=== PATIENT | male | born 1940 | race Caucasian/White ===

== ENCOUNTER 2017-05-14 00:17 | Outpatient (CLI) | END 2017-05-14 00:18 | disposition short-term general hospital (02) | LOC: AMBL 00:17 | PROVIDERS: ATTEND Internal Medicine Geriatric Medicine | DX: R10.30 Lower abdominal pain, unspecified (principal); R10.819 Abdominal tenderness, unspecified site; R00.1 Bradycardia, unspecified; R11.0 Nausea; Z98.890 Other specified postprocedural states ==

== ENCOUNTER 2017-06-15 22:56 | Outpatient (CLI) | END 2017-06-15 22:57 | LOC: AMBL 22:56 | PROVIDERS: ATTEND Emergency Medicine | DX: R10.84 Generalized abdominal pain (principal); G89.29 Other chronic pain ==

== ENCOUNTER 2017-06-21 01:37 | Outpatient (CLI) | END 2017-06-21 01:38 | LOC: AMBL 01:37 | PROVIDERS: ATTEND Emergency Medicine | DX: R10.84 Generalized abdominal pain (principal) ==

== ENCOUNTER 2017-06-29 19:43 | Outpatient (CLI) | END 2017-06-29 19:44 | LOC: AMBL 19:43 | PROVIDERS: ATTEND Emergency Medicine | DX: R10.30 Lower abdominal pain, unspecified (principal); R11.10 Vomiting, unspecified; R19.7 Diarrhea, unspecified; R00.1 Bradycardia, unspecified ==

== ENCOUNTER 2017-08-01 16:24 | Outpatient (CLI) ==
[2017-08-01 23:11] VITALS: BMI 19.7
== END 2017-08-01 16:25 | disposition home or self-care (01) ==
LOC: NONPT 16:24
PROVIDERS: ATTEND Internal Medicine
DX: S31.000A Unspecified open wound of lower back and pelvis without penetration into retroperitoneum, initial encounter (principal)
CPT/HCPCS: 87070

== ENCOUNTER 2017-08-01 19:33 | Inpatient (IN) ==
[2017-08-01] MEDS ORDERED: DUONEB NEB STA (19:51)
--- NOTE | 2017-08-01 19:56 | ED.PDOC ---
General ED Provider: Dr. SAMANTHA BARBOSA Chief Complaint: Cough Stated Complaint: Patient is a 76 year old who comes to the ER after recent surgery with cough and conjestion for the last few day. Also had lower grade fever. Family is worried he may have pneumoina. Has not been getting scheduled breathing treatments as required. Time Seen by Physician: 19:54 Mode of Arrival: Ambulance Information Source: Patient, Family, Senior Living, EMT Exam Limitations: No limitations Primary Care Provider: KELSI MURILLO Nursing and Triage Documentation Reviewed and Agree: Yes Respiratory Complaint Exam - Respiratory Complaint/Exam Onset/Duration: 3 days Symptoms Are: Still present Timing: Constant Initial Severity: Moderate Current Severity: Severe Location: Chest Character: Reports: Productive cough Aggravating: Reports: URI, Weather Alleviating: Reports: Bronchodilators Associated Signs and Symptoms: Reports: Dyspnea, Fever (Low grade ) Related History: Reports: Similar episode History of Healthcare-Acquired Pneumonia: Lives at snf (Rehab recently admitted ) Related Surgical History: Denies: Pacemaker Cardiac Risk Factors: Reports: Hypertension Pseudomonas Risk Factors: Reports: Repeat Antibx in 3 months Tuberculosis Risk Factors: Reports: Chronic Resp. Faliure Status Asthmaticus Risk Factors: Reports: Neb Treatment <4hr apart Home Oxygen Use: No Recent Stress Test: No Recent Echo/LV Function: No Current Antibiotic Use: Yes (Zithromax ) Current Asthma Medication Use: No Respiratory Distress: None Inadequate Respiratory Effort: Yes Dysphagia Present: No Stridor Present: No JVD Present: No Accessory Muscle Use: No Retractions: Not Present Diminished Breath Sounds: Yes Sinus Tenderness: None Grunting Respirations: No Kussmaul Respirations: No Differential Diagnoses: Asthma, COPD Exacerbation, Pneumonia, Bronchiolitis, URI , Lower Resp. Infection Non-Traumatic Chest Pain Syncope: EKG Performed Review of Systems - Review Of Systems Constitutional: Reports: Fever Respiratory: Reports: Cough, Short of air, Wheezing Cardiac: Reports: Chest pain (from coughing only ) GI: Reports: No symptoms : Reports: No symptoms Musculoskeletal: Reports: No symptoms Skin: Reports: Other (wounds ) Neurological: Reports: Anxiety Endocrine: Reports: No symptoms Hematologic/Lymphatic: Reports: No symptoms All Other Systems: Reviewed and Negative Past Medical History - Past Medical History Endocrine: Reports: DM 2, Dyslipidemia Cardiovascular: Reports: Hypertension, Other (cardic arrthymia ) Respiratory: Reports: COPD Hematological: Reports: Anemia Gastrointestinal: Reports: GERD, Other (Bowel obstruction.) Genitourinary: Reports: None Neuro/Psych: Reports: TIA, CVA Musculoskeletal: Reports: Arthritis Cancer: Reports: None - Surgical History General Surgical History: Reports: Other (colon resection 07/13/2017) - Family History Family History: Reports: Unknown - Social History Smoking Status: Former smoker Hx Substance Use: No Alcohol Screening: None - Immunizations Tetanus Shot up to Date: Yes Physical Exam - Physical Exam Appearance: Ill-appearing, Thin Ill-appearing: Severe Pain Distress: Severe Eyes: IRIS, EOMI, Conjunctiva clear Neck: Supple Respiratory: Rhonchi Cardiovascular: RRR, Pulses normal, No rub Musculoskeletal: Normal strength, ROM intact, No edema, No calf tenderness Skin: Warm, Dry, Normal color (sacral wound dressing in palce, Abdominal wound with a binder. ) Neurological: Sensation intact, Motor intact, Cranial nerves intact, Alert, Oriented Psychiatric: Anxious Interpretation - Assistant Engineer Rate: Normal Rhythm: Sinus Ectopy: None - EKG Interpretation Rate: Normal Rhythm: Sinus Ectopy: None [place]: NL ST Segment: Normal Interpretation: bifasicular block Critical Care Note - Critical Care Note Total Time (mins): 55 Course - Course Hematology/Chemistry: 08/02/17 04:20 08/02/17 04:20 Orders, Labs, Meds: Lab Review 08/01/17 08/01/17 08/01/17 19:51 20:00 21:00 WBC 25.15 H RBC 3.39 L Hgb 9.8 L Hct 29.6 L MCV 87.3 MCH 28.9 MCHC 33.1 RDW Coeff of Katalina 16.9 H Plt Count 413 Immature Gran % (Auto) 0.6 Neut % (Auto) 67.3 Lymph % (Auto) 27.4 Long % (Auto) 4.3 Eos % (Auto) 0.2 Baso % (Auto) 0.2 Immature Gran # (Auto) 0.1 Neut # 17.0 H Lymph # 6.9 H Long # 1.1 Eos # 0.0 Baso # 0.0 PT 121.3 H INR 12.81 H* Puncture Site Lb O2 Saturation 88.0 L ABG pH 7.499 H ABG pCO2 39.2 ABG pO2 49.0 L* ABG HCO3 30.5 H ABG Total CO2 32 H ABG Base Excess 7 H Dylan Test + FiO2 % 21.0 Sodium 144 Potassium 2.5 L* Chloride 105 Carbon Dioxide 31 Anion Gap 10.5 BUN 18 Creatinine 0.88 Estimated GFR (MDRD) 85.00 BUN/Creatinine Ratio 20.45 Glucose 119 H Lactic Acid 10.7 Calcium 8.0 L Magnesium 0.9 L* Total Bilirubin 0.31 AST 17 ALT 18 Alkaline Phosphatase 82 Total Creatine Kinase 15 Troponin I 0.0450 B-Natriuretic Peptide 1862 H Total Protein 5.5 L Albumin 1.8 L Globulin 3.7 Albumin/Globulin Ratio 0.49 Procalcitonin 0.08 Urine Color Urine Clarity Urine pH Ur Specific Ursa Urine Protein Urine Glucose (UA) Urine Ketones Urine Blood Urine Nitrite Urine Bilirubin Urine Urobilinogen Ur Leukocyte Esterase Urine Microscopic RBC Ur Squamous Epith Cells 08/01/17 21:25 WBC RBC Hgb Hct MCV MCH MCHC RDW Coeff of Katalina Plt Count Immature Gran % (Auto) Neut % (Auto) Lymph % (Auto) Long % (Auto) Eos % (Auto) Baso % (Auto) Immature Gran # (Auto) Neut # Lymph # Long # Eos # Baso # PT INR Puncture Site O2 Saturation ABG pH ABG pCO2 ABG pO2 ABG HCO3 ABG Total CO2 ABG Base Excess Dylan Test FiO2 % Sodium Potassium Chloride Carbon Dioxide Anion Gap BUN Creatinine Estimated GFR (MDRD) BUN/Creatinine Ratio Glucose Lactic Acid Calcium Magnesium Total Bilirubin AST ALT Alkaline Phosphatase Total Creatine Kinase Troponin I B-Natriuretic Peptide Total Protein Albumin Globulin Albumin/Globulin Ratio Procalcitonin Urine Color Yellow Urine Clarity Clear Urine pH 5.5 Ur Specific Ursa 1.020 Urine Protein 1+ Urine Glucose (UA) Negative Urine Ketones Negative Urine Blood Trace-lysed Urine Nitrite Negative Urine Bilirubin Negative Urine Urobilinogen 0.2 Ur Leukocyte Esterase Negative Urine Microscopic RBC 2-5 Ur Squamous Epith Cells Not present Orders Category Date Time Status ADMIT PATIENT INPATIENT .TO SCU (MONITORED BED) ADMISSION 08/01/17 21:27 Active ABG DRAW REQUEST Stat CARDIO 08/01/17 19:52 Completed EKG-(ED ONLY) Stat CARDIO 08/01/17 19:51 Completed NEBULIZER TREATMENT Routine CARDIO 08/01/17 21:37 Completed NEBULIZER TREATMENT Stat CARDIO 08/01/17 19:52 Completed OXYGEN Routine CARDIO 08/01/17 21:27 Active ACTIVITY .Early Mobilization for VTE Prevention CARE 08/01/17 21:31 Completed INCISION/WOUND CARE Q12HR CARE 08/01/17 21:27 Active INTAKE & OUTPUT Q8HR CARE 08/01/17 21:28 Completed TELEMETRY MONITORING TELE CARE 08/01/17 21:31 Active VITAL SIGNS Q4HR CARE 08/01/17 21:31 Completed ED COMPLIANCE REVIEW SPECIALIST APPLIED .ONCE EMERGENCY 08/01/17 19:51 Active ED IV/MEDIPORT/POWERPORT .ONCE EMERGENCY 08/01/17 19:51 Active OXYGEN [ED APPLY O2] .ONCE EMERGENCY 08/01/17 20:29 Active ABG Stat LAB 08/01/17 19:51 Completed B-TYPE NATRIURETIC PEPTIDE Stat LAB 08/01/17 20:00 Completed BLOOD CULTURE Stat LAB 08/01/17 20:00 Received CBC W/ AUTO DIFF DAILY@0600 LAB 08/02/17 04:20 Completed CBC W/ AUTO DIFF DAILY@0600 LAB 08/03/17 06:00 Ordered CBC W/ AUTO DIFF DAILY@0600 LAB 08/04/17 06:00 Ordered CBC W/ AUTO DIFF DAILY@0600 LAB 08/05/17 06:00 Ordered CBC W/ AUTO DIFF DAILY@0600 LAB 08/06/17 06:00 Ordered CBC W/ AUTO DIFF DAILY@0600 LAB 08/07/17 06:00 Ordered CBC W/ AUTO DIFF DAILY@0600 LAB 08/08/17 06:00 Ordered CBC W/ AUTO DIFF DAILY@0600 LAB 08/09/17 06:00 Ordered CBC W/ AUTO DIFF DAILY@0600 LAB 08/10/17 06:00 Ordered CBC W/ AUTO DIFF DAILY@0600 LAB 08/11/17 06:00 Ordered CBC W/ AUTO DIFF DAILY@0600 LAB 08/12/17 06:00 Ordered CBC W/ AUTO DIFF DAILY@0600 LAB 08/13/17 06:00 Ordered CBC W/ AUTO DIFF DAILY@0600 LAB 08/14/17 06:00 Ordered CBC W/ AUTO DIFF DAILY@0600 LAB 08/15/17 06:00 Ordered CBC W/ AUTO DIFF DAILY@0600 LAB 08/16/17 06:00 Ordered CBC W/ AUTO DIFF DAILY@0600 LAB 08/17/17 06:00 Ordered CBC W/ AUTO DIFF DAILY@0600 LAB 08/18/17 06:00 Ordered CBC W/ AUTO DIFF DAILY@0600 LAB 08/19/17 06:00 Ordered CBC W/ AUTO DIFF DAILY@0600 LAB 08/20/17 06:00 Ordered CBC W/ AUTO DIFF DAILY@0600 LAB 08/21/17 06:00 Ordered CBC W/ AUTO DIFF Stat LAB 08/01/17 20:00 Completed COMPREHENSIVE METABOLIC PANEL DAILY@0600 LAB 08/02/17 04:20 Completed COMPREHENSIVE METABOLIC PANEL DAILY@0600 LAB 08/03/17 06:00 Ordered COMPREHENSIVE METABOLIC PANEL DAILY@0600 LAB 08/04/17 06:00 Ordered COMPREHENSIVE METABOLIC PANEL DAILY@0600 LAB 08/05/17 06:00 Ordered COMPREHENSIVE METABOLIC PANEL DAILY@0600 LAB 08/06/17 06:00 Ordered COMPREHENSIVE METABOLIC PANEL DAILY@0600 LAB 08/07/17 06:00 Ordered COMPREHENSIVE METABOLIC PANEL DAILY@0600 LAB 08/08/17 06:00 Ordered COMPREHENSIVE METABOLIC PANEL DAILY@0600 LAB 08/09/17 06:00 Ordered COMPREHENSIVE METABOLIC PANEL DAILY@0600 LAB 08/10/17 06:00 Ordered COMPREHENSIVE METABOLIC PANEL DAILY@0600 LAB 08/11/17 06:00 Ordered COMPREHENSIVE METABOLIC PANEL DAILY@0600 LAB 08/12/17 06:00 Ordered COMPREHENSIVE METABOLIC PANEL DAILY@0600 LAB 08/13/17 06:00 Ordered COMPREHENSIVE METABOLIC PANEL DAILY@0600 LAB 08/14/17 06:00 Ordered COMPREHENSIVE METABOLIC PANEL DAILY@0600 LAB 08/15/17 06:00 Ordered COMPREHENSIVE METABOLIC PANEL DAILY@0600 LAB 08/16/17 06:00 Ordered COMPREHENSIVE METABOLIC PANEL DAILY@0600 LAB 08/17/17 06:00 Ordered COMPREHENSIVE METABOLIC PANEL DAILY@0600 LAB 08/18/17 06:00 Ordered COMPREHENSIVE METABOLIC PANEL DAILY@0600 LAB 08/19/17 06:00 Ordered COMPREHENSIVE METABOLIC PANEL DAILY@0600 LAB 08/20/17 06:00 Ordered COMPREHENSIVE METABOLIC PANEL DAILY@0600 LAB 08/21/17 06:00 Ordered COMPREHENSIVE METABOLIC PANEL Stat LAB 08/01/17 20:00 Completed CREATINE KINASE Stat LAB 08/01/17 20:00 Completed LACTIC ACID Stat LAB 08/01/17 20:00 Completed MAGNESIUM Stat LAB 08/01/17 20:00 Completed PROCALCITONIN Stat LAB 08/01/17 20:00 Completed TROPONIN I Stat LAB 08/01/17 20:00 Completed UA [URINALYSIS C & S IF INDICATED] Stat LAB 08/01/17 21:25 Completed 0.9 % Sodium Chloride [Saline Flush] MEDS 08/01/17 19:51 Ordered 1 syr IVF PRN PRN Aztreonam [Azactam] MEDS 08/01/17 21:22 Discontinued 1 gm .ROUTE .STK-MED ONE Aztreonam [Azactam] 1 gm MEDS 08/01/17 20:53 Discontinued 0.9 % Sodium Chloride [Sodium Chloride] 50 ml IV ONCE Aztreonam [Azactam] 1 gm MEDS 08/02/17 05:00 Ordered 0.9 % Sodium Chloride [Sodium Chloride] 50 ml IV Q8HR Hydromorphone HCl [Dilaudid 1 mg/ml Syringe] MEDS 08/01/17 20:28 Discontinued 1 mg IVP ONCE STA Hydromorphone HCl [Dilaudid 1 mg/ml Syringe] MEDS 08/01/17 21:27 Ordered 1 mg IVP Q4HR PRN Ipratropium/Albuterol Neb [Duoneb] MEDS 08/01/17 19:51 Discontinued 1 vial NEB ONCE STA Ipratropium/Albuterol Neb [Duoneb] MEDS 08/01/17 21:27 Ordered 1 vial NEB RTQ2H PRN Ipratropium/Albuterol Neb [Duoneb] MEDS 08/01/17 21:27 Discontinued 1 vial NEB RTQ6H PRN Ondansetron HCl/Pf [Zofran 4 mg/2 ml] MEDS 08/01/17 20:28 Discontinued 4 mg IVP ONCE STA Ondansetron HCl/Pf [Zofran 4 mg/2 ml] MEDS 08/01/17 21:27 Ordered 4 mg IVP Q6H PRN Oxycodone-Acetaminophen 5-325 [Percocet 5-325] MEDS 08/01/17 21:27 Ordered 1 tab PO Q6H PRN Potassium Chloride/D5-0.9%NaCl [D5%-Ns-KCl 20 Meq/l IV MEDS 08/01/17 21:30 Ordered Jessy] 1,000 ml IV 75 mls/hr Vancomycin HCl [Vancomycin] 1 gm MEDS 08/01/17 21:30 Ordered 0.9 % Sodium Chloride [Sodium Chloride] 250 ml IV Q12HR RESUSCITATION STATUS Routine OTHERS 08/01/17 21:27 Ordered CHEST, 1V AP ONLY Stat RADS 08/01/17 19:51 Completed OT CONSULTATION Routine THERAPIES 08/01/17 Ordered PT CONSULT Routine THERAPIES 08/01/17 Ordered Medications Generic Name Dose Route Start Last Admin Trade Name Freq PRN Reason Stop Dose Admin Albuterol/Ipratropium 1 vial 08/01/17 21:27 Duoneb NEB RTQ2H PRN Wheezing Albuterol/Ipratropium 1 vial 08/02/17 06:00 08/02/17 05:25 Duoneb NEB 1 vial RTQ6H [facility] Administration Amiodarone HCl 200 mg 08/02/17 09:00 Cordarone PO Q12HR [facility] Bisacodyl 5 mg 08/01/17 21:38 Dulcolax PO DAILY PRN Constipation Docusate Sodium 100 mg 08/02/17 09:00 Colace PO DAILY [facility] Hydrocortisone Sodium Succinate 100 mg 08/01/17 22:00 08/02/17 04:13 Solu-Cortef 100 Mg IVP 100 mg Q8HR [place] Administration Hydromorphone HCl 1 mg 08/01/17 21:27 08/02/17 04:02 Dilaudid 1 Mg/Ml Syringe IVP 1 mg Q4HR PRN Administration Severe Pain Aztreonam 1 gm/ Sodium 50 mls @ 75 mls/hr 08/02/17 05:00 08/02/17 05:33 Chloride IV Not Given Q8HR [facility] Potassium Chloride/Dextrose/Sod Cl 1,000 mls @ 75 mls/hr 08/01/17 21:30 08/02 06:14 D5%-Ns-Kcl 20 Meq/L Iv Jessy IV 75 mls/hr .[id number] [place] Administration Vancomycin HCl 1 gm/ Sodium 250 mls @ 125 mls/hr 08/01/17 21:30 08/02/17 04: 27 Chloride IV Not Given Q12HR [facility] Insulin Human Lispro 1 unit 08/01/17 21:38 Humalog SUBCUT QID PRN elevated blood glucose Insulin Human Regular 0 - 15 unit 08/01/17 21:43 08/02/17 06:30 Humulin R SUBCUT 4 unit PRN PRN Administration Hyperglycemica Protocol Magnesium Hydroxide 30 ml 08/01/17 21:38 Milk Of Magnesia PO DAILY PRN Dyspepsia Megestrol Acetate 800 mg 08/02/17 09:00 Megace PO DAILY [facility] Non-Formulary Medication 75 mg 08/02/17 09:00 Dipyridamole [Dipyridamole] PO Q12HR [facility] Non-Formulary Medication 5,000 unit 08/08/17 09:00 Ergocalciferol (Vitamin D2) [Ergocal] PO WEEKLY [facility] Non-Formulary Medication 0.1 mg 08/02/17 09:00 Fludrocortisone Acetate [Fludrocortisone Acetate] PO DAILY [facility] Ondansetron HCl 4 mg 08/01/17 21:27 Zofran 4 Mg/2 Ml IVP Q6H PRN Nausea / Vomiting Oxycodone/Acetaminophen 1 tab 08/01/17 21:27 08/02/17 00:51 Percocet 5-325 PO 1 tab Q6H PRN Administration moderate pain Pantoprazole Sodium 40 mg 08/02/17 09:00 Protonix PO Q12HR [facility] Potassium Chloride 40 meq 08/02/17 09:00 K-Dur PO QID [facility] Sodium Chloride 1 syr 08/01/17 19:51 08/01/17 21:04 Saline Flush IVF 1 syr PRN PRN Administration To flush IV Tamsulosin HCl 0.4 mg 08/02/17 09:00 Flomax PO DAILY [facility] Discontinued Medications Generic Name Dose Route Start Last Admin Trade Name Freq PRN Reason Stop Dose Admin Albuterol/Ipratropium 1 vial 08/01/17 19:51 08/01/17 19:55 Duoneb NEB 08/01/17 19:52 1 vial ONCE STA Administration Albuterol/Ipratropium 1 vial 08/01/17 21:27 08/01/17 23:48 Duoneb NEB 1 vial RTQ6H PRN Administration Wheezing Hydromorphone HCl 1 mg 08/01/17 20:28 08/01/17 20:58 Dilaudid 1 Mg/Ml Syringe IVP 08/01/17 20:29 1 mg ONCE STA Administration Aztreonam 1 gm/ Sodium 50 mls @ 75 mls/hr 08/01/17 20:53 08/01/17 21:27 Chloride IV 08/01/17 21:32 75 mls/hr ONCE STA Administration Magnesium Sulfate/Dextrose 2 200 mls @ 100 mls/hr 08/01/17 21:44 08/02/17 04: 26 gm/ Dextrose IV 08/01/17 23:43 Not Given ONCE STA Potassium Chloride 40 meq/ 200 mls @ 50 mls/hr 08/01/17 21:45 08/02/17 00:48 Sterile Water IV 08/02/17 01:44 Not Given ONCE STA Ondansetron HCl 4 mg 08/01/17 20:28 08/01/17 20:56 Zofran 4 Mg/2 Ml IVP 08/01/17 20:29 4 mg ONCE STA Administration Phytonadione 10 mg 08/01/17 22:17 08/02/17 00:59 Mephyton PO 08/01/17 22:18 10 mg ONCE STA Administration Vital Signs: Temp Pulse Resp BP Pulse Ox 08/01/17 19:35 98.7 F 87 28 H 178/57 H 92 L Departure - Departure Time of Disposition: 21:52 Disposition: ADMITTED INPATIENT Discharge Problem: Acute bronchitis, Hypoxia Condition: Fair Pt referred to PMD for follow-up: No Allergies/Adverse Reactions: Allergies amoxicillin Adverse Reaction (Verified 08/01/17 20:14) morphine Adverse Reaction (Verified 08/01/17 20:16) Home Medications: Ambulatory Orders Amiodarone HCl 200 mg PO Q12HR 08/01/17 Azithromycin [Zithromax] 250 mg PO DAILY 08/01/17 Bisacodyl [Dulcolax] 5 mg PO DAILY PRN 08/01/17 Dipyridamole 75 mg PO Q12HR 08/01/17 Docusate Sodium 100 mg PO DAILY 08/01/17 Ergocalciferol (Vitamin D2) [Ergocal] 5,000 unit PO WEEKLY 08/01/17 Fludrocortisone Acetate 0.1 mg PO DAILY 08/01/17 Hydrocodone Bit/Acetaminophen [[place] 7.5-325] 1 tab PO Q8HR PRN 08/01/17 Insulin Lispro [Humalog] 1 unit SQ QID PRN 08/01/17 Magnesium Hydroxide [Milk of Magnesia] 30 ml PO DAILY PRN 08/01/17 Megestrol Acetate 800 mg PO DAILY 08/01/17 Pantoprazole Sodium 40 mg PO Q12HR 08/01/17 Tamsulosin HCl [Flomax] 0.4 mg PO DAILY 08/01/17 Warfarin Sodium [Coumadin] 3 mg PO DAILY 08/01/17
[2017-08-01 20:10] LABS: BASOPHILS % (AUTO) 0.2 % (0.0-3.0); EOSINOPHILS % (AUTO) 0.2 % (0.0-7.0); HEMATOCRIT 29.6 % (42.0-52.0); HEMOGLOBIN 9.8 g/dl (14.0-18.0); IMMATURE GRANULOCYTE % (AUTO) 0.6 % (0.0-5.0); LYMPHOCYTES # (AUTO) 6.9 K/uL (0.60-3.4); LYMPHOCYTES % (AUTO) 27.4 (10.0-50.0); MEAN CORPUSCULAR HEMOGLOBIN 28.9 pg (27.0-31.0); MEAN CORPUSCULAR HGB CONC 33.1 (31.8-35.4); MEAN CORPUSCULAR VOLUME 87.3 fl (80.0-94.0); MONOCYTES # (AUTO) 1.1 K/uL (0.4-2.0); MONOCYTES % (AUTO) 4.3 (0-10); NEUTROPHILS % (AUTO) 67.3; PLATELET COUNT 413 10^3/uL (140-440); RED BLOOD COUNT 3.39 10^6/ul (4.70-6.10); WHITE BLOOD COUNT 25.15 K/ul (4.2-10.2)
[2017-08-01 20:28] LABS: ABG PCO2 39.2 mmHg (35-45); ABG PH 7.499 (7.35-7.45)
[2017-08-01] MEDS ORDERED: DILAUDID 1 MG/ML SYRINGE IVP STA (20:28)
[2017-08-01] MEDS ORDERED: ZOFRAN 4 MG/2 ML IVP STA (20:28)
[2017-08-01 20:29] LABS: ABG BASE EXCESS 7 (-2.0-2.0); ABG HCO3 30.5 (22.0-26.0); ABG TCO2 32 (22.0-28.0)
[2017-08-01 20:37] LABS: ALBUMIN 1.8 g/dL (3.4-5.0); ALBUMIN/GLOBULIN RATIO 0.49; ANION GAP 10.5; BILIRUBIN,TOTAL 0.31 mg/dL (0.00-1.20); BUN/CREATININE RATIO 20.45; CREATININE 0.88 mg/dL (0.60-1.10); TOTAL PROTEIN 5.5 g/dL (5.8-8.1); TROPONIN I 0.045 ng/ml (0.0000-0.4000)
[2017-08-01 20:38] LABS: POTASSIUM 2.5 mmol/L (3.5-5.1)
[2017-08-01] MEDS ORDERED: AZACTAM 1 GM in SODIUM CHLORIDE 50 ML IV STA (20:53)
--- NOTE | 2017-08-01 21:00 | DI ---
EXAM: Portable chest HISTORY: Cough COMPARISON: None. FINDINGS: The cardiac silhouette is normal in size. Atherosclerotic changes are seen involving the aortic arch. Sternal wire sutures are noted. There are emphysematous changes. There is blunting of both lateral costophrenic angles.. Minimal haziness is noted peripherally at the left lung base. IMPRESSION: Prior mediastinotomy. Emphysematous changes with blunting of both lateral costophrenic angles. Minimal haziness peripherally at the left lung base.
[2017-08-01] MEDS ORDERED: AZACTAM ONE (21:22)
[2017-08-01] MEDS ORDERED: DUONEB NEB PRN (21:27)
[2017-08-01] MEDS ORDERED: ZOFRAN 4 MG/2 ML IVP PRN (21:27)
[2017-08-01 21:33] LABS: BILIRUBIN,URINE Negative (NEGATIVE); KETONES,URINE Negative (NEGATIVE); LEUKOCYTE ESTERASE ,URINE Negative (NEGATIVE); NITRITE,URINE Negative (NEGATIVE); PH,URINE 5.5 (5-9); PROTEIN,URINE 1+ (NEGATIVE); URINE, BLOOD Trace-lysed (NEGATIVE)
[2017-08-01] MEDS ORDERED: MILK OF MAGNESIA PO PRN (21:38)
[2017-08-01] MEDS ORDERED: HUMALOG SUBCUT PRN (21:38)
[2017-08-01] MEDS ORDERED: DULCOLAX PO PRN (21:38)
[2017-08-01 21:42] LABS: ADD URINE MICROSCOPIC YES
[2017-08-01] MEDS ORDERED: HUMULIN R SUBCUT PRN (21:43)
[2017-08-01] MEDS ORDERED: POTASSIUM CHLORIDE PREMIX RUN 40 MEQ in PREMIX 100 ML WATER 2 BAG IV STA (21:45)
[2017-08-01 22:16] LABS: PROTHROMBIN TIME 121.3 SEC (9.3-11.0)
[2017-08-01] MEDS ORDERED: MEPHYTON PO STA (22:17)
[2017-08-01] MEDS ORDERED: POTASSIUM CHLORIDE PREMIX RUN 100 ML IV ONE (22:30)
[2017-08-01 23:11] VITALS: BMI 19.7
[2017-08-01] MEDS: SOLU-CORTEF 100 MG IVP SCH (23:18)
[2017-08-01] MEDS: DILAUDID 1 MG/ML SYRINGE IVP PRN (23:26)
[2017-08-02] MEDS ORDERED: POTASSIUM CHLORIDE PREMIX RUN 100 ML IV ONE (00:43)
[2017-08-02] MEDS: PERCOCET 5-325 PO PRN (00:51)
[2017-08-02] MEDS: MAGNESIUM SULFATE 100 ML IV ONE ×2 (02:52→02:56)
[2017-08-02] MEDS: MAGNESIUM SULFATE 2 GM in PREMIX 100 ML D5W 2 BAG IV STA ×2 (02:53→04:26)
[2017-08-02] MEDS: DILAUDID 1 MG/ML SYRINGE IVP PRN ×3 (04:02→19:34)
[2017-08-02] MEDS ORDERED: MAGNESIUM SULFATE 100 ML IV ONE (04:11)
[2017-08-02] MEDS: SOLU-CORTEF 100 MG IVP SCH ×3 (04:13→21:36)
[2017-08-02] MEDS: VANCOMYCIN 1 GM in SODIUM CHLORIDE 250 ML IV SCH ×2 (04:27→09:13)
[2017-08-02] MEDS: D5%-NS-KCL 20 MEQ/L IV SOL 1,000 ML IV SCH ×2 (04:30→06:14)
[2017-08-02] MEDS ORDERED: AZACTAM ONE (05:13)
[2017-08-02 05:16] LABS: BASOPHILS % (AUTO) 0.1 % (0.0-3.0); HEMATOCRIT 25.4 % (42.0-52.0); HEMOGLOBIN 8.4 g/dl (14.0-18.0); IMMATURE GRANULOCYTE % (AUTO) 0.8 % (0.0-5.0); LYMPHOCYTES # (AUTO) 0.7 K/uL (0.60-3.4); LYMPHOCYTES % (AUTO) 5.1 (10.0-50.0); MEAN CORPUSCULAR HGB CONC 33.1 (31.8-35.4); MEAN CORPUSCULAR VOLUME 87.6 fl (80.0-94.0); MONOCYTES # (AUTO) 0.2 K/uL (0.4-2.0); MONOCYTES % (AUTO) 1.7 (0-10); NEUTROPHILS # (AUTO) 13.1 K/ul (2.0-6.9); NEUTROPHILS % (AUTO) 92.3; PLATELET COUNT 360 10^3/uL (140-440); WHITE BLOOD COUNT 14.22 K/ul (4.2-10.2)
[2017-08-02] MEDS: DUONEB NEB SCH ×4 (05:25→23:12)
[2017-08-02 05:31] LABS: ALBUMIN 1.6 g/dL (3.4-5.0); ALBUMIN/GLOBULIN RATIO 0.46; ANION GAP 17.3; BILIRUBIN,TOTAL 0.24 mg/dL (0.00-1.20); BUN/CREATININE RATIO 17.7; CALCIUM 7.9 mg/dL (8.2-10.2); CREATININE 0.96 mg/dL (0.60-1.10); MAGNESIUM 1.8 mg/dL (1.7-2.2); POTASSIUM 3.3 mmol/L (3.5-5.1); TOTAL PROTEIN 5.1 g/dL (5.8-8.1)
[2017-08-02] MEDS ORDERED: SODIUM CHLORIDE 50 ML IV ONE (05:31)
[2017-08-02] MEDS: AZACTAM 1 GM in SODIUM CHLORIDE 50 ML IV SCH ×3 (05:33→21:36)
[2017-08-02 05:35] LABS: PROTHROMBIN TIME 111.4 SEC (9.3-11.0)
[2017-08-02] MEDS ORDERED: K-DUR PO SCH (09:00)
[2017-08-02] MEDS ORDERED: LOVENOX SUBCUT SCH (09:00)
[2017-08-02] MEDS ORDERED: DIPYRIDAMOLE 75 MG PO SCH (09:00)
[2017-08-02] MEDS: COLACE PO SCH (09:14)
[2017-08-02] MEDS: ZITHROMAX PO SCH (09:14)
[2017-08-02] MEDS: FLOMAX PO SCH (09:15)
[2017-08-02] MEDS: MEGACE PO SCH (09:15)
[2017-08-02] MEDS: CORDARONE PO SCH ×2 (09:18→21:41)
[2017-08-02] MEDS: PROTONIX PO SCH ×2 (09:18→17:43)
--- NOTE | 2017-08-02 10:49 | PN ---
DATE OF SERVICE: 08/01/17 ADMIT NOTE SUBJECTIVE: The patient is a resident of the [facility] was hospitalized as he was sent from the [facility] to the Emergency Room as his cough, congestive and low grade fever persisted. I was called two days ago as patient was having cough and congestion. I advised the family to send the patient to one of the emergency rooms either at [place] or [place] and they family declined. The patient was given Decadron 1cc IM and Z-pack and also instructions were given that if the patient's condition doesn't improve in 12 to 24 hours that the patient needs to go to the emergency room. Further workup by the ER physician revealed that patient had acute respiratory failure with pO2 of less than 50 with oxygen saturation of 86% with normal pH or pCO2 was within acceptable range. The patient's chest x-ray showed bilateral infiltrate. The patient's recently had surgery on his intestine because of obstruction. He also has multiple other medical problems. REVIEW OF SYSTEMS: CONSTITUTIONAL: No night sweats. No fatigue, malaise, lethargy. No fever or chills. HEENT: Eyes: No visual changes. No eye pain. No eye discharge. ENT: No runny nose. No epistaxis. No sinus pain. No sore throat. No odynophagia. No congestion. RESPIRATORY: No cough, no congestion. No hemoptysis. No shortness of breath. CARDIOVASCULAR: No angina symptoms. No CHF symptoms. No atypical chest pain for CAD. No palpitations. No orthopnea. GASTROINTESTINAL: No abdominal pain. No nausea or vomiting. No diarrhea or constipation. No hematemesis. No hematochezia. GENITOURINARY: No urgency. No frequency. No dysuria. No hematuria. No obstructive symptoms. No discharge. No pain. No significant abnormal bleeding. MUSCULOSKELETAL: No musculoskeletal pain; no joint swelling. NEUROLOGICAL: No headache. No neck pain. No syncope. No seizures. No dizziness. PSYCHIATRIC: Not anxious. No depression. No suicidal thoughts. No homicidal thoughts. SKIN: No rash. No lesions. No wounds. ENDOCRINE: No unexplained weight loss. No weight gain. HEMATOLOGIC/LYMPHATIC: No anemia. No purpura. No petechiae. No prolonged or excessive bleeding. No palpable lymph nodes. PHYSICAL EXAMINATION: GENERAL: The patient is oriented to time, place and person and able to swallow. VITAL SIGNS: HEENT: Head normocephalic, atraumatic. Eyes: Extraocular muscles are intact. Pupils are equal, round and reactive to light and accommodation. Ears: No lesions. Nose appeared normal. Throat: No exudate or erythema. NECK: Supple. No JVD, no carotid bruit. No lymphadenopathy or thyromegaly. LUNGS: Decreased breath sounds with mild wheeze bilaterally. Percussion note normal. Chest symmetrical. HEART: S1, S2, no S3. No murmurs. No cyanosis or clubbing. No ascites. Pulses: Dorsalis pedis and posterior tibial pulses +1 to +2 both sides. ABDOMEN: Soft. Nontender. Bowel sounds active. No CVA tenderness. No mass felt. EXTREMITIES: No edema. Full range of motion of all extremities, equal. NEUROLOGIC: No focal deficit. Cranial nerves II through XII are grossly intact. No headache, no double vision or headache. SKIN: Not dry. Intact. Turgor - normal. LYMPHATIC: No palpable lymph nodes/no lymphedema. MUSCULOSKELETAL: Normal joints with no swelling. Muscle tone is normal. LABS: ABG showed acute respiratory failure, WBC 25,000, creatinine and BUN are normal. Potassium 2.5 ASSESSMENT: 1. Pneumonia 2. Respiratory failure 3. Severe Hypokalemia 4. Vascular disease 5. ASHD PLAN: 1. Given Potassium supplements total 40 meq before midnight and daily 20meq four times a day and 10meq with 100cc of fluids. 40meq on riders 2. 1,000cc D5 1/2 normal saline with 30 meq KCL with 75cc per hour 3. Antibiotics to be given; Vancomycin, Azactam. The patient was already given Zithromax 4. IV steroids 5. NEBS treatment 6. Oxygen supplements 7. Admitted to [facility]. CONDITION: Stable TIME SPENT: More than 30 minutes. Plan and coordination of the patient's care discussed in the presence of nurse. [facility]ET[facility]ar
[2017-08-02] MEDS: FLUDROCORTISONE ACETATE 0.1 MG PO SCH (12:19)
[2017-08-02] MEDS: VITAMIN D PO SCH (12:24)
--- NOTE | 2017-08-02 15:50 | RS.PTINEVL ---
Subjective - Patient information Date of Evaluation: 08/02/17 Admitted From:: [facility] Usual Living Arrangement: [facility] Medical History: CVA/TIA (in 1977), COPD, Diabetes Medical History Comments:: Anemia Surgical History Comments:: bowel resection 07/12/17 at [facility], 3 RICH to left hip, 4 toes of left foot amputated Subjective Information/ Patient Comments:: Patient states he has been at the residential for about two weeks for therapy due to weakness from a prolonged hospital stay. States he was in the hospital over 100 days. Reports being very weak and hopes to return home soon from the residential. States he has a bed sore on his bottom. States he has difficulty scooting on the bed due to the bed sore. - Level of function Abilities prior to this admission: Prior to lengthy hospital stay, patient was independent with ambulation and ADL' s. Current Level of Function: Partially Dependent Current Equipment Used at Home: Rolling walker, wheelchair, hospital bed, high- rise toliet seat. Interventions - Objective Patient Orientation: Person, Place, Time, Situation Current Interventions: IV's, Telemetry Range of Motion - ROM Right Lower Extremity AROM: WFL's Left Lower Extremity AROM: WFL's Muscle Strength - Muscle Strength Comments:: Patient demonstrates general weakness throughout. Bilateral LE strength is generally 4-/5. Balance - Sitting Balance and Reactions Static Sitting Balance: Fair (+) Dynamic Sitting Balance: Fair - Standing Balance and Reactions Static Standing Balance: Fair Dynamic Standing Balance: Fair Functional Mobility - Bed Mobility Scooting: Min Assist, Mod Assist, 2 person assist, Verbal Cues, Tactile Cues Supine to Sit: Mod Assist, 2 person assist, Verbal Cues, Tactile Cues Sit to Supine: Min Assist, 2 person assist, Verbal Cues, Tactile Cues Comments:: Patient needed assistance to raise his trunk for supine to sit. Then returning to bed, he needed light assistance with his legs for sit to supine. - Transfers Sit to Stand: Min Assist, Mod Assist, 2 person assist, Verbal Cues, Tactile Cues Stand to Sit: Min Assist, 2 person assist, Verbal Cues, Tactile Cues - Safety Awareness Safety Awareness: Fair Ambulation - Ambulation Weight Bearing Status: FWB Assistive Device Used: Rolling Walker Distance: 3 steps forward and back to bed Assistance needed with Ambulation: Mod Assist, 2 person assist, Verbal Cues, Tactile Cues Gait Deviations: Narrow Based gait, Shuffling gait, Step-to gait, Forward posture, Short stride, Lacks step continuity Factors Affecting Ambulation: Decreased Balance, Weakness, Decreased Coordination, Decreased Safety, Limited Endurance Treatment time - Time with patient Total treatment time: 20 (mins) Assessment - Assessment Problem List:: Decreased level of function, Requires training/education, Decreased safety/Risk of falls, Weakness Rehab Potential: Good Further Therapy Indicated?: Yes Short Term Goals GOAL #1: Supine to sit with min assist of one and VC's. Goal to be met by: 08/05/17 GOAL #2: Sit to supine with supvn and VC's. Goal to be met by: 08/05/17 GOAL #3: Sit to stand with min assist of one. Goal to be met by: 08/05/17 Skilled Nursing Goals GOAL #1: Bed mobility with Supvn and vc's. Goal to be met by: 08/09/17 GOAL #2: Transfers with min-CGA of one and VC's. Goal to be met by: 08/09/17 GOAL #3: Pt amb. with RW with min of one 60 feet. Goal to be met by: 08/09/17 Plan Plan of Care: Therapeutic EX, Neuromuscular Re-Educ, Therapeutic Activity Frequency of Treatment: 1-2 X day, as tolerated Duration of Treatment: 1 Week Anticipated Discharge Destination: Skilled Nursing Care Facility (return to [place])
[2017-08-02] MEDS: HUMALOG SUBCUT PRN (17:37)
[2017-08-02] MEDS: K-DUR PO SCH (17:44)
[2017-08-03] MEDS: DILAUDID 1 MG/ML SYRINGE IVP PRN ×5 (00:47→23:46)
[2017-08-03] MEDS: D5%-NS-KCL 20 MEQ/L IV SOL 1,000 ML IV SCH ×2 (00:49→09:53)
[2017-08-03] MEDS: DUONEB NEB SCH ×4 (05:26→23:23)
[2017-08-03] MEDS: AZACTAM 1 GM in SODIUM CHLORIDE 50 ML IV SCH ×3 (05:34→20:29)
[2017-08-03] MEDS: PROTONIX PO SCH ×2 (05:35→17:50)
[2017-08-03 05:46] LABS: BASOPHILS % (AUTO) 0.1 % (0.0-3.0); HEMATOCRIT 24.5 % (42.0-52.0); IMMATURE GRANULOCYTE % (AUTO) 0.8 % (0.0-5.0); LYMPHOCYTES # (AUTO) 1.1 K/uL (0.60-3.4); LYMPHOCYTES % (AUTO) 7.8 (10.0-50.0); MEAN CORPUSCULAR HEMOGLOBIN 28.8 pg (27.0-31.0); MEAN CORPUSCULAR HGB CONC 32.7 (31.8-35.4); MEAN CORPUSCULAR VOLUME 88.1 fl (80.0-94.0); MONOCYTES # (AUTO) 0.4 K/uL (0.4-2.0); MONOCYTES % (AUTO) 2.7 (0-10); NEUTROPHILS # (AUTO) 12.7 K/ul (2.0-6.9); NEUTROPHILS % (AUTO) 88.6; PLATELET COUNT 340 10^3/uL (140-440); RED BLOOD COUNT 2.78 10^6/ul (4.70-6.10); WHITE BLOOD COUNT 14.29 K/ul (4.2-10.2)
[2017-08-03] MEDS: SOLU-CORTEF 100 MG IVP SCH ×3 (05:51→20:29)
[2017-08-03 06:05] LABS: ALBUMIN 1.6 g/dL (3.4-5.0); ALBUMIN/GLOBULIN RATIO 0.42; ANION GAP 12.2; BILIRUBIN,TOTAL 0.18 mg/dL (0.00-1.20); BUN/CREATININE RATIO 17.64; CALCIUM 7.9 mg/dL (8.2-10.2); CREATININE 1.02 mg/dL (0.60-1.10); POTASSIUM 4.2 mmol/L (3.5-5.1); TOTAL PROTEIN 5.4 g/dL (5.8-8.1)
[2017-08-03 06:10] LABS: PROTHROMBIN TIME 19.3 SEC (9.3-11.0)
[2017-08-03] MEDS: HUMALOG SUBCUT PRN ×3 (06:21→20:38)
[2017-08-03] MEDS: COLACE PO SCH (08:34)
[2017-08-03] MEDS: FLOMAX PO SCH (08:34)
[2017-08-03] MEDS: CORDARONE PO SCH ×2 (08:34→20:29)
[2017-08-03] MEDS: MEGACE PO SCH (08:35)
[2017-08-03] MEDS: ZITHROMAX PO SCH (08:35)
[2017-08-03] MEDS: K-DUR PO SCH (08:35)
[2017-08-03] MEDS: FLUDROCORTISONE ACETATE 0.1 MG PO SCH (08:37)
[2017-08-03] MEDS: VANCOMYCIN 500 MG in SODIUM CHLORIDE 100 ML IV SCH ×2 (09:52→21:20)
[2017-08-03] MEDS: DEXTROSE 5%-1/2NS IV SOLUTION 1,000 ML IV SCH (09:53)
[2017-08-03 11:01] LABS: OCCULT BLOOD INTERNAL QC 1 INTERNAL QC VALID; OCCULT BLOOD SAMPLE 1 POSITIVE (NEGATIVE)
[2017-08-04] MEDS: DEXTROSE 5%-1/2NS IV SOLUTION 1,000 ML IV SCH (02:23)
[2017-08-04] MEDS: AZACTAM 1 GM in SODIUM CHLORIDE 50 ML IV SCH ×3 (04:38→23:39)
[2017-08-04] MEDS: SOLU-CORTEF 100 MG IVP SCH (04:38)
[2017-08-04] MEDS: DILAUDID 1 MG/ML SYRINGE IVP PRN ×5 (04:40→22:28)
[2017-08-04 04:53] LABS: BASOPHILS % (AUTO) 0.1 % (0.0-3.0); HEMATOCRIT 24.8 % (42.0-52.0); HEMOGLOBIN 8.1 g/dl (14.0-18.0); IMMATURE GRANULOCYTE % (AUTO) 0.9 % (0.0-5.0); LYMPHOCYTES # (AUTO) 0.8 K/uL (0.60-3.4); LYMPHOCYTES % (AUTO) 4.6 (10.0-50.0); MEAN CORPUSCULAR HEMOGLOBIN 28.9 pg (27.0-31.0); MEAN CORPUSCULAR HGB CONC 32.7 (31.8-35.4); MEAN CORPUSCULAR VOLUME 88.6 fl (80.0-94.0); MONOCYTES # (AUTO) 0.5 K/uL (0.4-2.0); MONOCYTES % (AUTO) 2.5 (0-10); NEUTROPHILS # (AUTO) 16.3 K/ul (2.0-6.9); NEUTROPHILS % (AUTO) 91.9; PLATELET COUNT 379 10^3/uL (140-440)
[2017-08-04] MEDS: DUONEB NEB SCH ×4 (05:00→22:48)
[2017-08-04 05:07] LABS: PROTHROMBIN TIME 26.5 SEC (9.3-11.0)
[2017-08-04 05:16] LABS: ALBUMIN 1.7 g/dL (3.4-5.0); ALBUMIN/GLOBULIN RATIO 0.45; ANION GAP 13.8; BILIRUBIN,TOTAL 0.25 mg/dL (0.00-1.20); BUN/CREATININE RATIO 19.23; CALCIUM 7.8 mg/dL (8.2-10.2); CREATININE 0.78 mg/dL (0.60-1.10); POTASSIUM 3.8 mmol/L (3.5-5.1); TOTAL PROTEIN 5.5 g/dL (5.8-8.1)
[2017-08-04] MEDS: HUMALOG SUBCUT PRN ×2 (05:30→21:57)
[2017-08-04] MEDS: PROTONIX PO SCH ×2 (05:30→21:23)
[2017-08-04] MEDS: ZITHROMAX PO SCH (09:10)
[2017-08-04] MEDS: COLACE PO SCH (09:10)
[2017-08-04] MEDS: FLOMAX PO SCH (09:10)
[2017-08-04] MEDS: CORDARONE PO SCH ×2 (09:10→21:23)
[2017-08-04] MEDS: MEGACE PO SCH (09:10)
[2017-08-04] MEDS: COREG PO SCH ×2 (09:11→21:23)
[2017-08-04] MEDS: COZAAR PO SCH (09:11)
[2017-08-04] MEDS: K-DUR PO SCH (09:11)
[2017-08-04] MEDS: VANCOMYCIN 500 MG in SODIUM CHLORIDE 100 ML IV SCH ×2 (09:11→21:23)
[2017-08-04] MEDS: FLUDROCORTISONE ACETATE 0.1 MG PO SCH (09:14)
[2017-08-04] MEDS: PERCOCET 5-325 PO PRN (09:16)
--- NOTE | 2017-08-04 09:56 | PCM.PROG ---
Attending Provider: ATTENDING PROVIDER: Dr. KELSI MURILLO DATE OF SERVICE: 08/03/17 SUBJECTIVE: This 76 year old WHITE/ M was hospitalized 08/01/17. The patient is seen with Erum/Nurse Practitioner. The patient is lying in bed, is alert. The patient states he is in severe pain in the abdomen and from wound on buttock. He is afebrile. Potassium is normal today. INR is 1.9 today, which is improved. REVIEW OF SYSTEMS: CONSTITUTIONAL: Weakness. No night sweats. No fever or chills. HEENT: Eyes: No visual changes. No eye pain. No eye discharge. ENT: No runny nose. No epistaxis. No sinus pain. No odynophagia. No congestion. RESPIRATORY: Cough. No hemoptysis. No shortness of breath. CARDIOVASCULAR: No angina symptoms. No CHF symptoms. No atypical chest pain for CAD. No palpitations. No orthopnea.. GASTROINTESTINAL: Abdominal pain. No nausea or vomiting. No diarrhea or constipation. No hematemesis. No hematochezia. GENITOURINARY: No urgency. No frequency. No dysuria. No hematuria. No obstructive symptoms. No discharge. No pain. No significant abnormal bleeding. MUSCULOSKELETAL: Pain from wound on buttock and abdominal pain. NEUROLOGICAL: Awake, alert, oriented to time, place and person. No headache. No neck pain. No syncope. No seizures. No dizziness. PSYCHIATRIC: Not anxious. No depression. No suicidal thoughts. No homicidal thoughts. SKIN: No rash. Incision site on abdomen, pressure ulcer on left buttock. ENDOCRINE: No unexplained weight loss. No weight gain. HEMATOLOGIC/LYMPHATIC: No anemia. No purpura. No petechiae. No prolonged or excessive bleeding. No palpable lymph nodes. PHYSICAL EXAMINATION: GENERAL: The patient is awake, alert and oriented, lying in bed in no distress. VITAL SIGNS: Temperature 97.9 F, Pulse 65, Respiratory Rate 18, BP 153/64, Pulse Ox 98% HEENT: Head normocephalic, atraumatic. Eyes: Extraocular muscles are intact. Pupils are equal, round and reactive to light and accommodation. Ears: No lesions. Nose appeared normal. Throat: No exudate or erythema. NECK: Supple. No JVD, no carotid bruit. No lymphadenopathy or thyromegaly. LUNGS: Diminished breath sounds bilaterally, bilateral wheeze. Percussion note normal. Chest symmetrical. HEART: S1, S2, no S3. No murmurs. No cyanosis or clubbing. No ascites. Pulses: Dorsalis pedis and posterior tibial pulses +1 to +2 both sides. ABDOMEN: Soft. Non-tender. Bowel sounds active. No CVA tenderness. No mass felt. Surgical incision site on abdomen with drainage serosanquineous fluid. EXTREMITIES: No edema. Full range of motion of all extremities, equal. NEUROLOGIC: No focal deficit. Cranial nerves II through XII are grossly intact. No headache, no double vision or headache. SKIN: Warm and dry. Left buttock incision 3 cm x 4 cm approximately; pressure ulcer. Surgical incision site on abdomen. LYMPHATIC: No palpable lymph nodes/no lymphedema. MUSCULOSKELETAL: Normal joints with no swelling. Muscle tone is normal. LAB REVIEW: 08/03/17 05:15 08/03/17 05:15 08/03/17 05:15: WBC 14.29 H, RBC 2.78 L, Hgb 8.0 L, Hct 24.5 L, MCV 88.1, MCH 28.8, MCHC 32.7, RDW Coeff of Katalina 17.1 H, Plt Count 340, Immature Gran % (Auto) 0.8, Neut % (Auto) 88.6, Lymph % (Auto) 7.8 L, [place] % (Auto) 2.7, Eos % (Auto) 0.0, Baso % (Auto) 0.1, Immature Gran # (Auto) 0.1, Neut # 12.7 H, Lymph # 1.1, [place] # 0.4, Eos # 0.0, Baso # 0.0, PT 19.3 H D, INR 1.93 D, Sodium 146 H, Potassium 4.2, Chloride 109 H, Carbon Dioxide 29, Anion Gap 12.2, BUN 18, Creatinine 1.02, Estimated GFR (MDRD) 71.00, BUN/Creatinine Ratio 17.64, Glucose 262 H, Calcium 7.9 L, Magnesium 1.5 L, Total Bilirubin 0.18, AST 21, ALT 26, Alkaline Phosphatase 75, Total Protein 5.4 L, Albumin 1.6 L, Globulin 3.8, Albumin/Globulin Ratio 0.42 ASSESSMENT: 1. Pneumonitis. 2. Hypokalemia resolved. 3. Pressure ulcer on buttock, infected. Culture is pending. PLAN: 1. Continue to hold Coumadin. 2. Stool for occult blood. 3. Increase Dilaudid 2 mg q.4hr. 4. Change IV to D5 1/2 NS at 75 mL. 5. Discontinue IV potassium. 6. Continue oral potassium 40 mEq once daily 7. Culture pending from buttock. 8. Stool for occult blood. Plan and coordination of the patient's care discussed in the presence of Window Shade Ring Sewer and nurse. CONDITION: Stable SCRIBED BY: KAMINI BUTTERFIELD Dip Tube Assembler Machine scribed while in presence of service performed by Dr. KELSI MURILLO/ERUM ELLIS APRN on 08/03/17 ([id number])
--- NOTE | 2017-08-04 10:24 | PN ---
DATE OF SERVICE: 08/02/17 LIST MEDICAL PROBLEMS: 1. Pneumonia 2. Hypokalemia 3. Anemia 4. Diabetes Mellitus 5. INR of 11 SUBJECTIVE: The patient is a 76 year old white male hospitalize with above mentioned problems. The patient has acute respiratory failure with pO2 of less than 50, oxygen saturation of 86%. The patient's condition has improved and he is feeling a lot better. He is oriented to time, place and person. REVIEW OF SYSTEMS: CONSTITUTIONAL: No night sweats. No fatigue, malaise, lethargy. No fever or chills. HEENT: Eyes: No visual changes. No eye pain. No eye discharge. ENT: No runny nose. No epistaxis. No sinus pain. No sore throat. No odynophagia. No congestion. RESPIRATORY: Mild cough, no congestion. No hemoptysis. No shortness of breath. CARDIOVASCULAR: No angina symptoms. No CHF symptoms. No atypical chest pain for CAD. No palpitations. No orthopnea. No PND. GASTROINTESTINAL: No abdominal pain. No nausea or vomiting. No diarrhea or constipation. No hematemesis. No hematochezia. Appetite has improved. GENITOURINARY: No urgency. No frequency. No dysuria. No hematuria. No obstructive symptoms. No discharge. No pain. No significant abnormal bleeding. MUSCULOSKELETAL: No musculoskeletal pain; no joint swelling. NEUROLOGICAL: No headache. No neck pain. No syncope. No seizures. No dizziness. PSYCHIATRIC: Not anxious. No depression. No suicidal thoughts. No homicidal thoughts. SKIN: No rash. No lesions. No wounds. ENDOCRINE: No unexplained weight loss. No weight gain. HEMATOLOGIC/LYMPHATIC: No anemia. No purpura. No petechiae. No prolonged or excessive bleeding. No palpable lymph nodes. ALLERGIES: Amoxicillin Morphine PHYSICAL EXAMINATION: GENERAL: The patient is oriented to time, place and person. VITAL SIGNS: Temperature 97.7, pulse 76, respiratory rate 18, blood pressure 127/58 and pulse ox 96%. HEENT: Head normocephalic, atraumatic. Eyes: Extraocular muscles are intact. Pupils are equal, round and reactive to light and accommodation. Ears: No lesions. Nose appeared normal. Throat: No exudate or erythema. NECK: Supple. No JVD, no carotid bruit. No lymphadenopathy or thyromegaly. LUNGS:Decreased breath sounds but clear to auscultation. Percussion note normal. Chest symmetrical. HEART: S1, S2, no S3. No murmurs. No cyanosis or clubbing. No ascites. Pulses: Dorsalis pedis and posterior tibial pulses +1 to +2 both sides. ABDOMEN: Soft. Nontender. Bowel sounds active. No CVA tenderness. No mass felt. EXTREMITIES: No edema. Full range of motion of all extremities, equal. NEUROLOGIC: No focal deficit. Cranial nerves II through XII are grossly intact. No headache, no double vision or headache. SKIN: Not dry. Intact. Turgor - normal. LYMPHATIC: No palpable lymph nodes/no lymphedema. MUSCULOSKELETAL: Normal joints with no swelling. Muscle tone is normal. ASSESSMENT: 1. Pneumonia seems to be under control with Vancomycin and Azactam. Zithromax will be continued too. 2. Hypokalemia, seems to be a lot better with aggressive potassium supplements. The patient was given Vitamin K and INR is down to 11 3. Anemia, will follow hgb 8.4 and hct 25. 4. Glucose high likely hyperglycemia is worsened by steroid treatment. 5. The patient had recent surgery intestinal by Dr. Bowden. 6. The patient had vascular surgery in the legs by Dr. Shell. PLAN: 1. The patient explained about the medical problems. The patient had recent surgery intestinal by Dr. Bowden. The patient had vascular surgery in the legs by Dr. Shell. CONDITION: Stable. TIME SPENT: More than 30 minutes. Plan and coordination of the patient's care discussed in the presence of nurse. GRISEL
--- NOTE | 2017-08-04 10:32 | PCM.PROG ---
Attending Provider: ATTENDING PROVIDER: Dr. KELSI MURILLO DATE OF SERVICE: 08/04/17 SUBJECTIVE: This 76 year old WHITE/ M was hospitalized 08/01/17. The patient is seen with Erum, Nurse Practitioner. The patient is alert, lying in bed. He is still weak and coughing. The patient is stable. Hypokalemia has resolved. Kidney functions are better. Abdominal surgical incision of three weeks has no infection, drain part is still open and I removed five corazon out of 10. He is moving his bowels. Appetite is improving. Decubitus on sacral area has been taken care of. Prognosis is not good for healing due to peripheral arterial disease, malnutrition, hypoproteinemia, hypoalbuminemia and inability to walk. REVIEW OF SYSTEMS: CONSTITUTIONAL: Weakness. No night sweats. No fever or chills. HEENT: Eyes: No visual changes. No eye pain. No eye discharge. ENT: No runny nose. No epistaxis. No sinus pain. No odynophagia. No congestion. RESPIRATORY: Cough. No hemoptysis. No shortness of breath. CARDIOVASCULAR: No angina symptoms. No CHF symptoms. No atypical chest pain for CAD. No palpitations. No orthopnea.. GASTROINTESTINAL: Appetite is improving. Abdominal pain. No nausea or vomiting. No diarrhea or constipation. No hematemesis. No hematochezia. GENITOURINARY: No urgency. No frequency. No dysuria. No hematuria. No obstructive symptoms. No discharge. No pain. No significant abnormal bleeding. MUSCULOSKELETAL: No musculoskeletal pain; no joint swelling. NEUROLOGICAL: Awake, alert, oriented to time, place and person. No headache. No neck pain. No syncope. No seizures. No dizziness. PSYCHIATRIC: Not anxious. No depression. No suicidal thoughts. No homicidal thoughts. SKIN: No rash. Incision on abdomen; pressure ulcer on left buttock. ENDOCRINE: No unexplained weight loss. No weight gain. HEMATOLOGIC/LYMPHATIC: No anemia. No purpura. No petechiae. No prolonged or excessive bleeding. No palpable lymph nodes. PHYSICAL EXAMINATION: GENERAL: The patient is awake, alert and oriented, lying in bed in no distress. VITAL SIGNS: Temperature 98.0 F, Pulse 86, Respiratory Rate 18, BP 188/81, Pulse Ox 97% HEENT: Head normocephalic, atraumatic. Eyes: Extraocular muscles are intact. Pupils are equal, round and reactive to light and accommodation. Ears: No lesions. Nose appeared normal. Throat: No exudate or erythema. Pallor positive. NECK: Supple. No JVD, no carotid bruit. No lymphadenopathy or thyromegaly. LUNGS: Diminished breath sounds bilaterally. Clear to auscultation. Percussion note normal. Chest symmetrical. HEART: S1, S2, no S3. No murmurs. No cyanosis or clubbing. No ascites. Pulses: Dorsalis pedis and posterior tibial pulses +1 to +2 both sides. ABDOMEN: Abdominal incision which is a vertical incision with serous drainage. No redness. Rudy intact. Pressure ulcer, left buttock. Bowel sounds active. No CVA tenderness. No mass felt. EXTREMITIES: No edema. Full range of motion of all extremities, equal. NEUROLOGIC: No focal deficit. Cranial nerves II through XII are grossly intact. No headache, no double vision or headache. SKIN: Warm and dry. As above. LYMPHATIC: No palpable lymph nodes/no lymphedema. MUSCULOSKELETAL: Normal joints with no swelling. Muscle tone is normal. LAB REVIEW: 08/04/17 04:30 08/04/17 04:30 08/04/17 04:30: WBC 17.70 H, RBC 2.80 L, Hgb 8.1 L, Hct 24.8 L, MCV 88.6, MCH 28.9, MCHC 32.7, RDW Coeff of Katalina 17.2 H, Plt Count 379, Immature Gran % (Auto) 0.9, Neut % (Auto) 91.9, Lymph % (Auto) 4.6 L, [place] % (Auto) 2.5, Eos % (Auto) 0.0, Baso % (Auto) 0.1, Immature Gran # (Auto) 0.2, Neut # 16.3 H, Lymph # 0.8, [place] # 0.5, Eos # 0.0, Baso # 0.0, PT 26.5 H D, INR 2.68, Sodium 145, Potassium 3.8, Chloride 106, Carbon Dioxide 29, Anion Gap 13.8, BUN 15, Creatinine 0.78, Estimated GFR (MDRD) 97.00, BUN/Creatinine Ratio 19.23, Glucose 205 H D, Calcium 7.8 L, Magnesium 1.3 L, Total Bilirubin 0.25, AST 17, ALT 32, Alkaline Phosphatase 73, Total Protein 5.5 L, Albumin 1.7 L, Globulin 3.8, Albumin/ Globulin Ratio 0.45 08/03/17 09:45: Stl Occult Blood (IFOB) Positive, Stool Occult Blood #2 Not Reportable, Stool Occult Blood #3 Not Reportable ASSESSMENT: 1. Pneumonitis. 2. Hypokalemia, resolved. 3. Pressure ulcer on buttock infected, moderate growth of gram negative rods preliminary report 4. Drainage from surgical incision site on abdomen. 5. Anemia 6. Hypertension 7. Failure to thrive PLAN: 1. Cozaar 100 mg p.o. now and q.a.m. 2. Coreg 3.125 mg one now and b.i.d. 3. Type and crossmatch 2 units, give both 4. Continue IV antibiotics 5. D/C Solu-Cortef Plan and coordination of the patient's care discussed in the presence of Manganese Breaker and nurse. CONDITION: Stable SCRIBED BY: Aileen HARRIS scribed while in presence of service performed by Dr. KELSI MURILLO/ERUM ELLIS APRN on 08/04/17 ([id number])
--- NOTE | 2017-08-04 11:12 | HP ---
DATE OF SERVICE: 08/01/17 REASON FOR HOSPITALIZATION: Pneumonia, Hypokalemia, elevated INR more than 13. HISTORY OF PRESENT ILLNESS: The patient is a 76 year old white male was sent from the [facility] because he has been running low grade fever with bronchitis type of symptoms and he is condition didn't improve. I instructed the [facility] to send him out to the emergency room where he was check out and his diagnosis at the time with x-ray findings and labs test was acute respiratory failure with know, hypoxemia along with severe hypokalemia and elevated INR. The patient has multiple medical problems along with surgical conditions corrected. The patient had abdominal aortic aneurysm repair in , had traumatic amputation in , chronic anticoagulation, severe peripheral vascular disease with intermittent claudication, intermittent small bowel obstruction with abdominal pain. In December Dr. Bowden ended up doing the surgery because of small bowel obstruction also the patient has superior mesenteric artery stent and abdominal aortic aneurysm repaired in 1995, amputation traumatic, crush injury, COPD, Diabetes mellitus, gastroesophageal reflux disease, History of blood transfusions with anemia, dyslipidemia, Hypertension. Severe peripheral arterial disease followed by Dr. Shell, stroke syndrome, Cholecystectomy, history of pericardial procedure, left xiphoid approach two amputations x4 due to trauma, total hip arthroplasty, status post vascular surgery Dr. Shell. The patient was hospitalized on 06/29/17 to one of the [facility] and seen by Dr. Gutierrez; final diagnosis was partial small bowel obstruction, Leukocytosis, lower abdominal pain, impaired function of mobility. REVIEW OF SYSTEMS: CONSTITUTIONAL: No night sweats. Weakness and fatigue. No fever or chills. HEENT: Eyes: No visual changes. No eye pain. No eye discharge. ENT: No runny nose. No epistaxis. No sinus pain. No sore throat. No odynophagia. No ear pain. No congestion. RESPIRATORY: Cough with congestion. No hemoptysis. No shortness of breath. CARDIOVASCULAR: No angina symptoms. No CHF symptoms. No atypical chest pain for CAD. No palpitations. No orthopnea. No PND. GASTROINTESTINAL: Mild abdominal discomfort as usual. Mild Nausea. No Vomiting. No diarrhea or constipation. No hematemesis. No hematochezia. Poor appetite. GENITOURINARY: No urgency. No frequency. No dysuria. No hematuria. No obstructive symptoms. No discharge. No pain. No significant abnormal bleeding. MUSCULOSKELETAL: No musculoskeletal pain. No joint swelling. No arthritis. NEUROLOGICAL: No headache. No neck pain. No syncope. No seizures. No dizziness. PSYCHIATRIC: Not anxious. No depression. No suicidal thoughts. No homicidal thoughts. SKIN: No rash. No lesions. No wounds. ENDOCRINE: No unexplained weight loss. No weight gain. HEMATOLOGIC/LYMPHATIC: No anemia. No purpura. No petechiae. No prolonged or excessive bleeding. No palpable lymph nodes. PERSONAL/FAMILY/SOCIAL HISTORY: The patient is lives in the [facility]. Non smoker and no alcohol abuse. Does some activity of daily living. PAST MEDICAL/SURGICAL PROBLEMS: Abdominal aortic aneurysm repair in Traumatic amputation in Chronic anticoagulation Severe peripheral vascular disease with intermittent claudication Intermittent small bowel obstruction with abdominal pain In December Dr. Bowden ended up doing the surgery because of small bowel obstruction Superior mesenteric artery stent Abdominal aortic aneurysm repaired in 1995 Amputation traumatic, crush injury COPD Diabetes mellitus Gastroesophageal reflux disease History of blood transfusions with anemia Dyslipidemia Hypertension Severe peripheral arterial disease followed by Dr. Shell Stroke syndrome Cholecystectomy History of pericardial procedure Left xiphoid approach two amputations x4 due to trauma Total hip arthroplasty Status post vascular surgery Dr. Shell The patient was hospitalized on 06/29/17 to one of the [facility] and seen by Dr. Gutierrez; final diagnosis was partial small bowel obstruction, Leukocytosis, lower abdominal pain, impaired function of mobility. MEDICATIONS: Amiodarone 200mg PO Q 12 hours Zithromax 250mg PO daily Dulcolax 5mg PO daily Ebony 5-325mg Q 8 hours Humalog PRN with sliding scale Protonix 40mg PO daily Megace 800mg PO daily Flomax 0.4mg PO daily Coumadin 3mg PO daily ALLERGIES: Amoxicillin Morphine Persantine 75mg twice a day Fludrocortisone Acetate PHYSICAL EXAMINATION: GENERAL: The patient is oriented to time, place and person. VITAL SIGNS: Temperature 97.7, pulse 76, respiratory rate 18, blood pressure 127/58 and pulse ox 96%. HEENT: Head normocephalic, atraumatic. Eyes: Extraocular muscles are intact. Pupils are equal, round and reactive to light and accommodation. Ears: No lesions. Nose appeared normal. Throat: No exudate or erythema. NECK: Supple. No JVP, no carotid bruit. No lymphadenopathy or thyromegaly. LUNGS: Decreased breath sounds but clear to auscultation. Percussion note normal. Chest symmetrical. HEART: S1, S2, no S3. No murmurs. No cyanosis or clubbing. No ascites. Pulses: Dorsalis pedis and posterior tibial pulses +1 to +2 both sides. ABDOMEN: Soft. Nontender. Bowel sounds active. No CVA tenderness. No mass felt. EXTREMITIES: No edema. Full range of motion of all extremities, equal. NEUROLOGIC: No focal deficit. Cranial nerves II through XII are grossly intact. No headache, no double vision or headache. SKIN: Not dry. Intact. Turgor - normal. LYMPHATIC: No palpable lymph nodes/no lymphedema. MUSCULOSKELETAL: Normal joints with no swelling. Muscle tone is normal. LABS: ABG's showed acute respiratory failure with pO2 50 with oxygen saturation of 86 % with borderline low pCO2. WBC 25,000 the patient has history of leukocytosis could be from infection also, potassium 2.5, INR was more than 13. ASSESSMENT: 1. Pneumonia 2. Respiratory failure 3. Severe Hypokalemia 4. Vascular disease 5. ASHD PLAN: 1. Vitamin K given IV in the emergency room 2. The patient is to be started on Antibiotic Vancomycin and Azactam 3. Zithromax needs to be continued 4. IV fluids with potassium supplement 5. IV 10meq potassium with 100cc fluids every 4 riders 6. The patient to be given 40 meq today and 60 meq PO daily 7. Daily CBC and CMP 8. Monitor telemetry 9. EKG 10. Monitor atrial blood gasses PROGNOSIS: Guarded considering the patient's multiple medical problems. TIME SPENT: More than 70 minutes. [facility]
--- NOTE | 2017-08-04 11:46 | PN ---
DATE OF SERVICE: 08/03/17 SUBJECTIVE: 76-year-old white male seen with nurse practitioner and behavioral health case manager. The patient's condition has improved. His hemoglobin is 8 with hematocrit 24. May require one more unit of packed red cells. INR 1.9. The patient had an occult blood ordered. The patient's pain is controlled with 2 mg Dilaudid. The patient' s pain control is not well-controlled so will increase the Dilaudid to 2 mg IV. The patient's potassium is stable so will decrease the amount of potassium supplements. INR is 1.9. PHYSICAL EXAMINATION: HEENT: Head normocephalic, atraumatic. Eyes: Extraocular muscles are intact. Pupils are equal, round and reactive to light and accommodation. Ears: No lesions. Nose appeared normal. Throat: No exudate or erythema. NECK: Supple. No JVD, no carotid bruit. No lymphadenopathy or thyromegaly. LUNGS: Decreased breath sounds but clear to auscultation. Percussion note normal. Chest symmetrical. CVS: S1, S2, no S3. No murmurs. No cyanosis or clubbing. No ascites. Pulses : Dorsalis pedis and posterior tibial pulses +1 to +2 both sides. ABDOMEN: Soft. Nontender. Bowel sounds active. No CVA tenderness. No mass felt. EXTREMITIES: No edema. Full range of motion of all extremities, equal. NEUROLOGIC: No focal deficit. Cranial nerves II through XII are grossly intact. No headache, no double vision or headache. SKIN: Abdominal incision with mild serous. LYMPHATIC: No palpable lymph nodes/no lymphedema. MUSCULOSKELETAL: Normal joints with no swelling. Muscle tone is normal. ASSESSMENT: 1. No evidence of active GI bleed. 2. The patient has numerous multiple end-stage medical problems. 3. He is DNR. 4. He has mild serous discharge from his abdominal incision. CONDITION: Stable TIME SPENT: More than 30 minutes. Plan and coordination of the patient's care discussed in the presence of nurse. GRISEL
[2017-08-04] MEDS: DUONEB NEB PRN (15:46)
[2017-08-04] MEDS ORDERED: SOLU-CORTEF 250 MG IVP STA (16:10)
[2017-08-04] MEDS ORDERED: LASIX IVP STA (16:12)
[2017-08-04] MEDS ORDERED: LASIX ONE ×2 (16:14→16:48)
[2017-08-04 16:40] LABS: ABG BASE EXCESS 1 (-2.0-2.0); ABG HCO3 26.6 (22.0-26.0); ABG PCO2 45.2 mmHg (35-45); ABG PH 7.377 (7.35-7.45); ABG TCO2 28 (22.0-28.0)
[2017-08-04] MEDS ORDERED: MORPHINE 10 MG/ML SYRINGE IM STA (16:43)
[2017-08-04] MEDS ORDERED: SODIUM CHLORIDE IM SCH (16:45)
[2017-08-04] MEDS ORDERED: LASIX IM SCH (16:45)
[2017-08-04] MEDS ORDERED: MORPHINE 4 MG/ML SYRINGE ONE (16:50)
[2017-08-04] MEDS ORDERED: LASIX IM STA ×2 (16:55→17:02)
--- NOTE | 2017-08-04 17:01 | DI ---
EXAM: Single frontal view of the chest HISTORY: Shortness of breath. COMPARISON: Chest x-ray 08/01/2017 FINDINGS: Cardiomediastinal silhouette is unchanged with intact sternotomy wires. There is no pneum othorax. There is trace blunting the costophrenic angles. There is bilateral interstitial ground-g lass opacities most pronounced in the left lower lobe. The osseous structures are unchanged. IMPRESSION: Interstitial and ground-glass opacities throughout both lungs most pronounced in the left lower lobe may represent edema versus pneumonia. Blunting the costophrenic angles may represent small effusions.
[2017-08-04] MEDS ORDERED: DILAUDID 2 MG/ML SYRINGE IM STA (17:03)
[2017-08-04] MEDS ORDERED: VASOTEC IV IVP STA (18:05)
[2017-08-05 00:22] LABS: HEMATOCRIT 33.2 % (42.0-52.0)
[2017-08-05] MEDS: DEXTROSE 5%-1/2NS IV SOLUTION 1,000 ML IV SCH ×3 (01:39→17:52)
[2017-08-05] MEDS: DILAUDID 1 MG/ML SYRINGE IVP PRN ×5 (02:26→22:14)
[2017-08-05] MEDS: AZACTAM 1 GM in SODIUM CHLORIDE 50 ML IV SCH ×3 (04:34→20:11)
[2017-08-05] MEDS: DUONEB NEB SCH ×4 (04:50→23:05)
[2017-08-05 04:57] LABS: BASOPHILS % (AUTO) 0.1 % (0.0-3.0); HEMATOCRIT 32.8 % (42.0-52.0); HEMOGLOBIN 10.9 g/dl (14.0-18.0); IMMATURE GRANULOCYTE % (AUTO) 0.9 % (0.0-5.0); LYMPHOCYTES # (AUTO) 1.8 K/uL (0.60-3.4); LYMPHOCYTES % (AUTO) 9.2 (10.0-50.0); MEAN CORPUSCULAR HEMOGLOBIN 27.8 pg (27.0-31.0); MEAN CORPUSCULAR HGB CONC 33.2 (31.8-35.4); MEAN CORPUSCULAR VOLUME 83.7 fl (80.0-94.0); MONOCYTES # (AUTO) 0.8 K/uL (0.4-2.0); MONOCYTES % (AUTO) 3.9 (0-10); NEUTROPHILS # (AUTO) 16.7 K/ul (2.0-6.9); NEUTROPHILS % (AUTO) 85.9; PLATELET COUNT 346 10^3/uL (140-440); RED BLOOD COUNT 3.92 10^6/ul (4.70-6.10); WHITE BLOOD COUNT 19.42 K/ul (4.2-10.2)
[2017-08-05 05:08] LABS: PROTHROMBIN TIME 29.4 SEC (9.3-11.0)
[2017-08-05 05:18] LABS: ALBUMIN 1.7 g/dL (3.4-5.0); ALBUMIN/GLOBULIN RATIO 0.47; ANION GAP 17.1; BILIRUBIN,TOTAL 0.48 mg/dL (0.00-1.20); BUN/CREATININE RATIO 21.42; CREATININE 0.84 mg/dL (0.60-1.10); POTASSIUM 3.1 mmol/L (3.5-5.1); TOTAL PROTEIN 5.3 g/dL (5.8-8.1)
[2017-08-05] MEDS: PROTONIX PO SCH ×2 (05:31→16:54)
[2017-08-05] MEDS: COZAAR PO SCH (08:55)
[2017-08-05] MEDS: COLACE PO SCH (08:55)
[2017-08-05] MEDS: CORDARONE PO SCH ×2 (08:55→20:12)
[2017-08-05] MEDS: K-DUR PO SCH (08:55)
[2017-08-05] MEDS: COREG PO SCH ×2 (08:55→16:54)
[2017-08-05] MEDS: MEGACE PO SCH (08:56)
[2017-08-05] MEDS: FLUDROCORTISONE ACETATE 0.1 MG PO SCH (08:58)
[2017-08-05] MEDS: FLOMAX PO SCH (08:58)
[2017-08-05] MEDS: VANCOMYCIN 500 MG in SODIUM CHLORIDE 100 ML IV SCH ×2 (09:06→21:02)
[2017-08-05] MEDS: SOLU-CORTEF 100 MG IVP SCH ×2 (11:45→20:12)
[2017-08-05] MEDS: HUMALOG SUBCUT PRN (21:20)
[2017-08-06] MEDS: AZACTAM 1 GM in SODIUM CHLORIDE 50 ML IV SCH ×3 (04:23→20:42)
[2017-08-06] MEDS: SOLU-CORTEF 100 MG IVP SCH ×3 (04:23→20:43)
[2017-08-06] MEDS: DILAUDID 1 MG/ML SYRINGE IVP PRN ×5 (04:23→22:11)
[2017-08-06] MEDS: DUONEB NEB SCH ×4 (04:50→22:56)
[2017-08-06] MEDS: PERCOCET 5-325 PO PRN (05:15)
[2017-08-06 05:19] LABS: BASOPHILS % (AUTO) 0.1 % (0.0-3.0); HEMOGLOBIN 11.1 g/dl (14.0-18.0); IMMATURE GRANULOCYTE % (AUTO) 0.9 % (0.0-5.0); LYMPHOCYTES # (AUTO) 1.4 K/uL (0.60-3.4); LYMPHOCYTES % (AUTO) 9.1 (10.0-50.0); MEAN CORPUSCULAR HEMOGLOBIN 28.1 pg (27.0-31.0); MEAN CORPUSCULAR HGB CONC 33.6 (31.8-35.4); MEAN CORPUSCULAR VOLUME 83.5 fl (80.0-94.0); MONOCYTES # (AUTO) 0.5 K/uL (0.4-2.0); MONOCYTES % (AUTO) 3.3 (0-10); NEUTROPHILS % (AUTO) 86.6; PLATELET COUNT 364 10^3/uL (140-440); RED BLOOD COUNT 3.95 10^6/ul (4.70-6.10); WHITE BLOOD COUNT 14.98 K/ul (4.2-10.2)
[2017-08-06 05:25] LABS: PROTHROMBIN TIME 26.4 SEC (9.3-11.0)
[2017-08-06 05:38] LABS: ALBUMIN 1.6 g/dL (3.4-5.0); ALBUMIN/GLOBULIN RATIO 0.46; ANION GAP 8.5; BILIRUBIN,TOTAL 0.33 mg/dL (0.00-1.20); BUN/CREATININE RATIO 23.65; CALCIUM 8.1 mg/dL (8.2-10.2); CREATININE 0.93 mg/dL (0.60-1.10); POTASSIUM 3.5 mmol/L (3.5-5.1); TOTAL PROTEIN 5.1 g/dL (5.8-8.1)
[2017-08-06] MEDS: PROTONIX PO SCH ×2 (05:46→16:44)
[2017-08-06] MEDS: HUMALOG SUBCUT PRN ×3 (06:14→23:59)
[2017-08-06] MEDS: DEXTROSE 5%-1/2NS IV SOLUTION 1,000 ML IV SCH ×3 (06:24→23:56)
[2017-08-06] MEDS: FLOMAX PO SCH (08:18)
[2017-08-06] MEDS: COZAAR PO SCH (08:18)
[2017-08-06] MEDS: COREG PO SCH ×2 (08:18→16:45)
[2017-08-06] MEDS: COLACE PO SCH (08:18)
[2017-08-06] MEDS: CORDARONE PO SCH ×2 (08:18→20:42)
[2017-08-06] MEDS: MEGACE PO SCH (08:19)
[2017-08-06] MEDS: K-DUR PO SCH (08:19)
[2017-08-06] MEDS: FLUDROCORTISONE ACETATE 0.1 MG PO SCH (08:20)
[2017-08-06] MEDS ORDERED: VANCOMYCIN 1 GM in SODIUM CHLORIDE 250 ML IV SCH (09:00)
[2017-08-06] MEDS: LASIX IVP SCH (14:43)
[2017-08-06] MEDS ORDERED: LASIX ONE (14:43)
[2017-08-07] MEDS: DEXTROSE 5%-1/2NS IV SOLUTION 1,000 ML IV SCH ×2 (02:53→17:39)
[2017-08-07] MEDS: DILAUDID 1 MG/ML SYRINGE IVP PRN ×2 (02:54→07:51)
[2017-08-07] MEDS: SOLU-CORTEF 100 MG IVP SCH ×2 (04:43→18:46)
[2017-08-07] MEDS: AZACTAM 1 GM in SODIUM CHLORIDE 50 ML IV SCH (04:43)
[2017-08-07 04:48] LABS: BASOPHILS % (AUTO) 0.1 % (0.0-3.0); HEMATOCRIT 31.9 % (42.0-52.0); HEMOGLOBIN 10.7 g/dl (14.0-18.0); IMMATURE GRANULOCYTE % (AUTO) 0.9 % (0.0-5.0); LYMPHOCYTES # (AUTO) 1.1 K/uL (0.60-3.4); LYMPHOCYTES % (AUTO) 6.7 (10.0-50.0); MEAN CORPUSCULAR HEMOGLOBIN 28.2 pg (27.0-31.0); MEAN CORPUSCULAR HGB CONC 33.5 (31.8-35.4); MEAN CORPUSCULAR VOLUME 84.2 fl (80.0-94.0); MONOCYTES # (AUTO) 0.5 K/uL (0.4-2.0); MONOCYTES % (AUTO) 3.2 (0-10); NEUTROPHILS % (AUTO) 89.1; PLATELET COUNT 383 10^3/uL (140-440); RED BLOOD COUNT 3.79 10^6/ul (4.70-6.10); WHITE BLOOD COUNT 15.69 K/ul (4.2-10.2)
[2017-08-07 04:55] LABS: PROTHROMBIN TIME 29.4 SEC (9.3-11.0)
[2017-08-07] MEDS: DUONEB NEB SCH ×4 (05:00→23:05)
[2017-08-07 05:09] LABS: ALBUMIN 1.6 g/dL (3.4-5.0); ALBUMIN/GLOBULIN RATIO 0.47; ANION GAP 10.2; BILIRUBIN,TOTAL 0.33 mg/dL (0.00-1.20); BUN/CREATININE RATIO 20.43; CALCIUM 7.9 mg/dL (8.2-10.2); CREATININE 0.93 mg/dL (0.60-1.10); POTASSIUM 3.2 mmol/L (3.5-5.1)
[2017-08-07] MEDS: PROTONIX PO SCH ×2 (06:02→16:51)
[2017-08-07] MEDS: LASIX IVP SCH (06:02)
[2017-08-07] MEDS: COREG PO SCH ×2 (09:37→16:51)
[2017-08-07] MEDS: FLOMAX PO SCH (09:37)
[2017-08-07] MEDS: MEGACE PO SCH (09:37)
[2017-08-07] MEDS: COLACE PO SCH (09:38)
[2017-08-07] MEDS: COZAAR PO SCH (09:38)
[2017-08-07] MEDS: FLUDROCORTISONE ACETATE 0.1 MG PO SCH (09:38)
[2017-08-07] MEDS: CORDARONE PO SCH ×2 (09:38→20:57)
[2017-08-07] MEDS: K-DUR PO SCH ×3 (09:40→16:51)
[2017-08-07] MEDS: BACTRIM DS 800/160 MG PO SCH ×2 (09:41→20:57)
[2017-08-07] MEDS: DILAUDID 2 MG/ML SYRINGE IM SCH ×2 (10:02→12:40)
--- NOTE | 2017-08-07 11:56 | DI ---
EXAM: Single view of the chest. History: Cough and wheezing Comparison: Chest radiograph 08/04/2017 Findings: Heart is mildly enlarged. Sternotomy wires. The bilateral lung infiltrates are worsened. No pneumothorax. No acute osseous abnormalities. Impression: Worsening bilateral lung infiltrates could represent pneumonia or pulmonary edema.
[2017-08-07] MEDS ORDERED: DILAUDID 2 MG/ML SYRINGE IVP SCH (12:35)
[2017-08-07] MEDS: DILAUDID 2 MG/ML SYRINGE IVP SCH ×5 (12:38→23:59)
[2017-08-07] MEDS: HUMALOG SUBCUT PRN ×2 (12:38→22:31)
--- NOTE | 2017-08-07 12:47 | PCM.PROG ---
Attending Provider: ATTENDING PROVIDER: Dr. KELSI MURILLO DATE OF SERVICE: 08/07/17 SUBJECTIVE: This 76 year old WHITE/ M was hospitalized 08/01/17. The patient is seen with Erum, Nurse Practitioner. The patient is alert, lying in bed. REVIEW OF SYSTEMS: CONSTITUTIONAL: Pain and weakness. No night sweats. No fever or chills. HEENT: Eyes: No visual changes. No eye pain. No eye discharge. ENT: No runny nose. No epistaxis. No sinus pain. No odynophagia. No congestion. RESPIRATORY: Positive for cough and congestion. No hemoptysis. No shortness of breath. CARDIOVASCULAR: No angina symptoms. No CHF symptoms. No atypical chest pain for CAD. No palpitations. No orthopnea.. GASTROINTESTINAL: No abdominal pain. No nausea or vomiting. No diarrhea or constipation. No hematemesis. No hematochezia. GENITOURINARY: No urgency. No frequency. No dysuria. No hematuria. No obstructive symptoms. No discharge. No pain. No significant abnormal bleeding. MUSCULOSKELETAL: No musculoskeletal pain; no joint swelling. NEUROLOGICAL: Awake, alert, oriented to time, place and person. No headache. No neck pain. No syncope. No seizures. No dizziness. PSYCHIATRIC: Not anxious. No depression. No suicidal thoughts. No homicidal thoughts. SKIN: No rash. No lesions. No wounds. ENDOCRINE: No unexplained weight loss. No weight gain. HEMATOLOGIC/LYMPHATIC: No anemia. No purpura. No petechiae. No prolonged or excessive bleeding. No palpable lymph nodes. PHYSICAL EXAMINATION: GENERAL: The patient is awake, alert and oriented, lying/sitting in bed in no distress. VITAL SIGNS: Temperature 97.9 F, Pulse 81, Respiratory Rate 15, BP 168/85, Pulse Ox 93% HEENT: Head normocephalic, atraumatic. Eyes: Extraocular muscles are intact. Pupils are equal, round and reactive to light and accommodation. Ears: No lesions. Nose appeared normal. Throat: No exudate or erythema. NECK: Supple. No JVD, no carotid bruit. No lymphadenopathy or thyromegaly. LUNGS: Diminished breath sounds bilaterally with rhonchi. Clear to auscultation. Percussion note normal. Chest symmetrical. HEART: S1, S2, no S3. No murmurs. No cyanosis or clubbing. No ascites. Pulses: Dorsalis pedis and posterior tibial pulses +1 to +2 both sides. ABDOMEN: Incision site clean and dry. Soft. Nontender. Bowel sounds active. No CVA tenderness. No mass felt. EXTREMITIES: No edema. Full range of motion of all extremities, equal. NEUROLOGIC: No focal deficit. Cranial nerves II through XII are grossly intact. No headache, no double vision or headache. SKIN: Abdominal incision site clean and dry. Abdominal incision is vertical with serous drainage. No redness. [place] are intact. Pressure ulcer to left buttock. LYMPHATIC: No palpable lymph nodes/no lymphedema. MUSCULOSKELETAL: Normal joints with no swelling. Muscle tone is normal. LAB REVIEW: 08/07/17 04:44 08/07/17 04:44 08/07/17 04:44: B-Natriuretic Peptide 6864 H 08/07/17 04:44: PT 29.4 H, INR 2.97 08/07/17 04:44: Sodium 142, Potassium 3.2 L, Chloride 106, Carbon Dioxide 29, Anion Gap 10.2, BUN 19 H, Creatinine 0.93, Estimated GFR (MDRD) 79.00, BUN/ Creatinine Ratio 20.43, Glucose 189 H, Calcium 7.9 L, Total Bilirubin 0.33, AST 16, ALT 22, Alkaline Phosphatase 65, Total Protein 5.0 L, Albumin 1.6 L, Globulin 3.4, Albumin/Globulin Ratio 0.47 08/07/17 04:44: WBC 15.69 H, RBC 3.79 L, Hgb 10.7 L, Hct 31.9 L, MCV 84.2, MCH 28.2, MCHC 33.5, RDW Coeff of Katalina 18.2 H, Plt Count 383, Immature Gran % (Auto) 0.9, Neut % (Auto) 89.1, Lymph % (Auto) 6.7 L, [place] % (Auto) 3.2, Eos % (Auto) 0.0, Baso % (Auto) 0.1, Immature Gran # (Auto) 0.1, Neut # 14.0 H, Lymph # 1.1, [place] # 0.5, Eos # 0.0, Baso # 0.0 ASSESSMENT: 1. Pneumonitis. 2. Hypokalemia 3. Pressure ulcer on buttock infected, moderate growth of gram negative rods preliminary report 4. Drainage from surgical incision site on abdomen. 5. Anemia 6. Hypertension 7. Failure to thrive PLAN: 1. Septra b.i.d. 2. Stop Vancomycin 3. Stop Azactam 4. Increase 40 mg t.i.d. potassium. 5. Lasix 20 mg IV. 6. Continue Solu-Cortef 100 mg b.i.d. 7. Evaluate for swing bed. 8. Repeat chest x-ray. 9. Continue to hold Coumadin. Plan and coordination of the patient's care discussed in the presence of Admitting Coordinator and nurse. CONDITION: Stable SCRIBED BY: KAMINI BUTTERFIELD Government Relations Director scribed while in presence of service performed by Dr. KELSI MURILLO/ERUM ELLIS APRN on 08/07/17 (23)
--- NOTE | 2017-08-07 13:21 | PN ---
DATE OF SERVICE: 08/04/17 SUBJECTIVE: The patient was seen this morning with Nurse Practitioner and noted dictated. The patient has several problems so he is going to need blood transfusion a couple of units. He has symptomatic anemia with weakness, inability to thrive and shortness of breath. He has coronary artery disease and severe peripheral arterial disease. He is going to requite blood transfusion. His incision is not completely healed up which was done 3 weeks ago with abdominal exploratory laparotomy TIME SPENT: More than 30 minutes. Plan and coordination of the patient's care discussed in the presence of nurse. GRISEL
[2017-08-08] MEDS: DEXTROSE 5%-1/2NS IV SOLUTION 1,000 ML IV SCH (02:32)
[2017-08-08] MEDS: DILAUDID 2 MG/ML SYRINGE IVP SCH ×8 (03:31→23:27)
[2017-08-08 04:48] LABS: BASOPHILS % (AUTO) 0.1 % (0.0-3.0); HEMATOCRIT 33.2 % (42.0-52.0); IMMATURE GRANULOCYTE % (AUTO) 0.9 % (0.0-5.0); LYMPHOCYTES # (AUTO) 1.2 K/uL (0.60-3.4); LYMPHOCYTES % (AUTO) 6.2 (10.0-50.0); MEAN CORPUSCULAR HEMOGLOBIN 28.1 pg (27.0-31.0); MEAN CORPUSCULAR HGB CONC 33.1 (31.8-35.4); MEAN CORPUSCULAR VOLUME 84.7 fl (80.0-94.0); MONOCYTES # (AUTO) 0.6 K/uL (0.4-2.0); NEUTROPHILS # (AUTO) 17.8 K/ul (2.0-6.9); NEUTROPHILS % (AUTO) 89.8; PLATELET COUNT 417 10^3/uL (140-440); RED BLOOD COUNT 3.92 10^6/ul (4.70-6.10); WHITE BLOOD COUNT 19.78 K/ul (4.2-10.2)
[2017-08-08 04:59] LABS: PROTHROMBIN TIME 24.5 SEC (9.3-11.0)
[2017-08-08] MEDS: DUONEB NEB SCH ×4 (05:04→23:06)
[2017-08-08 05:08] LABS: ALBUMIN 1.6 g/dL (3.4-5.0); ALBUMIN/GLOBULIN RATIO 0.47; ANION GAP 11.2; BILIRUBIN,TOTAL 0.46 mg/dL (0.00-1.20); BUN/CREATININE RATIO 23.8; CALCIUM 8.1 mg/dL (8.2-10.2); CREATININE 0.84 mg/dL (0.60-1.10); POTASSIUM 4.2 mmol/L (3.5-5.1)
[2017-08-08] MEDS: LASIX IVP SCH (05:57)
[2017-08-08] MEDS: PROTONIX PO SCH ×2 (05:57→17:03)
[2017-08-08] MEDS: DUONEB NEB PRN (07:14)
[2017-08-08] MEDS ORDERED: LASIX IVP STA (07:25)
[2017-08-08] MEDS ORDERED: DILAUDID 4 MG/ML SYRINGE IVP STA (07:58)
[2017-08-08] MEDS ORDERED: ATIVAN PO STA (07:59)
[2017-08-08] MEDS ORDERED: DILAUDID 1 MG/ML SYRINGE ONE (08:04)
[2017-08-08] MEDS ORDERED: ATIVAN ONE (08:05)
[2017-08-08] MEDS ORDERED: DILAUDID 2 MG/ML SYRINGE ONE (08:05)
[2017-08-08] MEDS: MEGACE PO SCH (08:57)
[2017-08-08] MEDS: BACTRIM DS 800/160 MG PO SCH ×2 (08:58→20:11)
[2017-08-08] MEDS: COZAAR PO SCH (08:58)
[2017-08-08] MEDS: COLACE PO SCH (08:58)
[2017-08-08] MEDS: FLOMAX PO SCH (08:58)
[2017-08-08] MEDS: K-DUR PO SCH ×3 (08:58→17:03)
[2017-08-08] MEDS: COREG PO SCH ×2 (08:58→17:03)
[2017-08-08] MEDS: CORDARONE PO SCH ×2 (08:59→20:11)
[2017-08-08] MEDS ORDERED: ERGOCALCIFEROL 5000 UNIT PO SCH (09:00)
[2017-08-08] MEDS: FLUDROCORTISONE ACETATE 0.1 MG PO SCH (09:02)
[2017-08-08] MEDS: SOLU-CORTEF 100 MG IVP SCH ×2 (10:07→20:12)
--- NOTE | 2017-08-08 11:35 | PN ---
DATE OF SERVICE: 08/07/17 SUBJECTIVE: The patient was hospitalized with hypoxemia, cough and hypokalemia. The patient' s medical status seems to be stable now. The patient had episode of acute CHF, pulmonary edema 2-3 days ago. The patient doesn't have any symptoms of CHF. There is no fever or chills. He continues to have abdominal pain which has been rating as 2-7 on scale of 1-10 for past several weeks. The patient had appointment to see Dr. Bowden today followup up on his surgery that she had performed for distal obstruction but the patient's condition is not stable enough to be transferred to her office so he will postpone his appointment for a few days. REVIEW OF SYSTEMS: CONSTITUTIONAL: No night sweats. No fatigue, malaise, lethargy. No fever or chills. HEENT: Eyes: No visual changes. No eye pain. No eye discharge. ENT: No runny nose. No epistaxis. No sinus pain. No sore throat. No odynophagia. No congestion. RESPIRATORY: No cough, no congestion. No hemoptysis. No shortness of breath. CARDIOVASCULAR: No angina symptoms. No CHF symptoms. No atypical chest pain for CAD. No palpitations. No orthopnea. GASTROINTESTINAL: No abdominal pain. No nausea or vomiting. No diarrhea or constipation. No hematemesis. No hematochezia. GENITOURINARY: No urgency. No frequency. No dysuria. No hematuria. No obstructive symptoms. No discharge. No pain. No significant abnormal bleeding. MUSCULOSKELETAL: No musculoskeletal pain; no joint swelling. NEUROLOGICAL: No headache. No neck pain. No syncope. No seizures. No dizziness. PSYCHIATRIC: Not anxious. No depression. No suicidal thoughts. No homicidal thoughts. SKIN: No rash. No lesions. No wounds. ENDOCRINE: No unexplained weight loss. No weight gain. HEMATOLOGIC/LYMPHATIC: No anemia. No purpura. No petechiae. No prolonged or excessive bleeding. No palpable lymph nodes. PHYSICAL EXAMINATION: HEENT: Head normocephalic, atraumatic. Eyes: Extraocular muscles are intact. Pupils are equal, round and reactive to light and accommodation. Ears: No lesions. Nose appeared normal. Throat: No exudate or erythema. NECK: Supple. No JVD, no carotid bruit. No lymphadenopathy or thyromegaly. LUNGS: Mild wheeze bilaterally. Percussion note normal. Chest symmetrical. HEART: S1, S2, no S3. No murmurs. No cyanosis or clubbing. No ascites. Pulses: Dorsalis pedis and posterior tibial pulses +1 to +2 both sides. ABDOMEN: Soft. Nontender. Bowel sounds active. No CVA tenderness. No mass felt. Going to take a few corazon out 2-3 and after that the patient will have 3 -4 corazon left. The area which had a drain is healing up with healthy granulation on the lower tissue on the lower part of incision otherwise no drainage. Appetite has been improving. EXTREMITIES: No edema. Full range of motion of all extremities, equal. NEUROLOGIC: No focal deficit. Cranial nerves II through XII are grossly intact. No headache, no double vision or headache. SKIN: Not dry. Intact. Turgor - normal. LYMPHATIC: No palpable lymph nodes/no lymphedema. MUSCULOSKELETAL: Normal joints with no swelling. Muscle tone is normal. ASSESSMENT: 1. Cardiovascular status is stable with chronic lung disease 2. CHF under control 3. Anemia was treated with blood transfusion off and on, there is no GI blood loss. Anemia is from chronic disorder and from nutritional status being poor and status post surgery. PLAN: 1. The patient's in the room. She is also reluctant to take patient to see Dr. Bowden. The patient practically refused to go at present time. 2. We will put steri strips across abdominal binding still present. 3. We will decrease the dose of steroids. 4. Continue antibiotics for decubitus. 5. Continue IV Lasix. 6. Need potassium supplements. The patient was seen with Nurse Practitioner and Plate Mounter. TIME SPENT: More than 30 minutes. Plan and coordination of the patient's care discussed in the presence of nurse. GRISEL
[2017-08-08] MEDS ORDERED: DULCOLAX RC STA (13:12)
--- NOTE | 2017-08-08 13:14 | CT ---
EXAM: CT Abdomen without contrast. CT Pelvis without contrast. HISTORY: Mid abdominal pain. Recent abdominal surgery. COMPARISON: None available. TECHNIQUE: Multiple axial images of the abdomen and pelvis were obtained without intravenous contras t. Images were reformatted in the coronal plane. FINDINGS: Please note that evaluation of the abdominal and pelvic structures is limited due to lack of intravenous contrast. Small pleural effusions are present. Bibasilar ground-glass opacities with interlobular septal thick ening noted in both lung bases. Left hip arthroplasty changes are present. Degenerative changes present in the spine. Gallbladder is absent. The liver, pancreas, spleen, adrenal glands, and kidneys demonstrate normal c ontour. Renal vascular calcifications noted bilaterally. There is no hydronephrosis. [place] seen along the midline of the ventral abdominal wall. Staple line seen in the lower abdomina l small bowel. There is mild distension of a few small bowel loops. No gianfranco transition point ident ified. No bowel wall thickening identified. Large amount of stool present in the colon. Small amou nt of ascites present. Mild mesenteric edema noted. No free air identified. Urinary bladder is unr emarkable. Endovascular stent graft present in the infrarenal abdominal aorta. Superior mesenteric artery stent also noted. Mild subcutaneous edema is present. IMPRESSION: 1. Nonspecific appearance of the small bowel which may represent enteritis. 2. Small pleural effusions, mild mesenteric edema and small amount of ascites. 3. Lower thoracic findings may represent pulmonary edema.
--- NOTE | 2017-08-08 13:25 | PCM.PROG ---
Attending Provider: ATTENDING PROVIDER: Dr. KELSI MURILLO DATE OF SERVICE: 08/08/17 SUBJECTIVE: This 76 year old WHITE/ M was hospitalized 08/01/17. The patient is seen with Erum, Nurse Practitioner. The patient is alert, lying in bed. He states he is still having pain in the buttock area and abdominal pain. He had an episode this morning with shortness of breath, desaturation and respiratory distress which resolved with additional 20 mg IV Lasix and now is in no distress. REVIEW OF SYSTEMS: CONSTITUTIONAL: No night sweats. No fatigue, malaise, lethargy. No fever or chills. HEENT: Eyes: No visual changes. No eye pain. No eye discharge. ENT: No runny nose. No epistaxis. No sinus pain. No odynophagia. No congestion. RESPIRATORY: Cough and congestion. No hemoptysis. Shortness of breath. CARDIOVASCULAR: No angina symptoms. No CHF symptoms. No atypical chest pain for CAD. No palpitations. No orthopnea.. GASTROINTESTINAL: Abdominal pain. No nausea or vomiting. No diarrhea or constipation. No hematemesis. No hematochezia. GENITOURINARY: No urgency. No frequency. No dysuria. No hematuria. No obstructive symptoms. No discharge. No pain. No significant abnormal bleeding. MUSCULOSKELETAL: No musculoskeletal pain; no joint swelling. NEUROLOGICAL: Awake, alert, somewhat forgetful. No headache. No neck pain. No syncope. No seizures. No dizziness. PSYCHIATRIC: Anxious. No depression. No suicidal thoughts. No homicidal thoughts. SKIN: No rash. Pressure ulcer on buttock. Vertical incision on abdomen, clean and dry. ENDOCRINE: No unexplained weight loss. No weight gain. HEMATOLOGIC/LYMPHATIC: Anemia. No purpura. No petechiae. No prolonged or excessive bleeding. No palpable lymph nodes. PHYSICAL EXAMINATION: GENERAL: The patient is awake, alert, somewhat forgetful lying in bed in no distress. VITAL SIGNS: Temperature 98.2 F, Pulse 78, Respiratory Rate 18, BP 150/84, Pulse Ox 90% HEENT: Pallor positive. Head normocephalic, atraumatic. Eyes: Extraocular muscles are intact. Pupils are equal, round and reactive to light and accommodation. Ears: No lesions. Nose appeared normal. Throat: No exudate or erythema. NECK: Supple. No JVD, no carotid bruit. No lymphadenopathy or thyromegaly. LUNGS: Bilateral rhonchi with dimiinished breath sounds. Percussion note normal. Chest symmetrical. HEART: S1, S2, no S3. No murmurs. No cyanosis or clubbing. No ascites. Pulses: Dorsalis pedis and posterior tibial pulses +1 to +2 both sides. ABDOMEN: Soft. Non-tender. Bowel sounds active. No CVA tenderness. No mass felt. EXTREMITIES: No edema. Full range of motion of all extremities, equal. NEUROLOGIC: No focal deficit. Cranial nerves II through XII are grossly intact. No headache, no double vision or headache. SKIN: Abdominal incision, vertical, site clean and dry with serous drainage. No redness. No signs of infection Pressure ulcer to left buttock, Stage 2 with surrounding erythema unchanged. LYMPHATIC: No palpable lymph nodes/no lymphedema. MUSCULOSKELETAL: Normal joints with no swelling. Muscle tone is normal. LAB REVIEW: 08/08/17 04:46 08/08/17 04:46 08/08/17 04:46: PT 24.5 H, INR 2.46 08/08/17 04:46: Sodium 141, Potassium 4.2, Chloride 106, Carbon Dioxide 28, Anion Gap 11.2, BUN 20 H, Creatinine 0.84, Estimated GFR (MDRD) 89.00, BUN/ Creatinine Ratio 23.80, Glucose 168 H, Calcium 8.1 L, Total Bilirubin 0.46, AST 15, ALT 23, Alkaline Phosphatase 62, Total Protein 5.0 L, Albumin 1.6 L, Globulin 3.4, Albumin/Globulin Ratio 0.47 08/08/17 04:46: WBC 19.78 H, RBC 3.92 L, Hgb 11.0 L, Hct 33.2 L, MCV 84.7, MCH 28.1, MCHC 33.1, RDW Coeff of Katalina 17.9 H, Plt Count 417, Immature Gran % (Auto) 0.9, Neut % (Auto) 89.8, Lymph % (Auto) 6.2 L, [place] % (Auto) 3.0, Eos % (Auto) 0.0, Baso % (Auto) 0.1, Immature Gran # (Auto) 0.2, Neut # 17.8 H, Lymph # 1.2, [place] # 0.6, Eos # 0.0, Baso # 0.0 ASSESSMENT: 1. Pneumonitis. 2. Hypokalemia 3. Pressure ulcer on buttock infected, moderate growth of gram negative rods preliminary report 4. Pulmonary edema 5. Anemia 6. Hypertension 7. 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 Dilaudid 3 mg now 2. Lasix 20 mg extra this a.m. significant improvement immediately after. 3. Consult with Dr. Yi for wound evaluation. 4. Ativan 0.5 mg t.i.d. p.r.n. for anxiety. 5. Discontinue IV fluids. Plan and coordination of the patient's care discussed in the presence of Validation Manager and nurse. CONDITION: Guarded SCRIBED BY: KAMINI BUTTERFIELD Floor And Wall Applier Liquid scribed while in presence of service performed by Dr. KELSI MURILLO/ERUM ELLIS APRN on 08/08/17 ([id number])
[2017-08-08] MEDS: HUMALOG SUBCUT PRN ×2 (18:02→20:13)
[2017-08-08] MEDS: ATIVAN PO PRN (23:27)
[2017-08-09] MEDS: DILAUDID 2 MG/ML SYRINGE IVP SCH ×9 (00:02→23:42)
[2017-08-09] MEDS: DUONEB NEB SCH ×4 (04:46→23:25)
[2017-08-09 04:50] LABS: BASOPHILS % (AUTO) 0.1 % (0.0-3.0); HEMATOCRIT 32.1 % (42.0-52.0); HEMOGLOBIN 10.6 g/dl (14.0-18.0); LYMPHOCYTES # (AUTO) 1.1 K/uL (0.60-3.4); LYMPHOCYTES % (AUTO) 5.4 (10.0-50.0); MEAN CORPUSCULAR VOLUME 84.9 fl (80.0-94.0); MONOCYTES # (AUTO) 0.5 K/uL (0.4-2.0); MONOCYTES % (AUTO) 2.3 (0-10); NEUTROPHILS # (AUTO) 18.8 K/ul (2.0-6.9); NEUTROPHILS % (AUTO) 91.2; PLATELET COUNT 378 10^3/uL (140-440); RED BLOOD COUNT 3.78 10^6/ul (4.70-6.10); WHITE BLOOD COUNT 20.61 K/ul (4.2-10.2)
[2017-08-09 05:19] LABS: ALBUMIN 1.5 g/dL (3.4-5.0); ALBUMIN/GLOBULIN RATIO 0.43; BILIRUBIN,TOTAL 0.52 mg/dL (0.00-1.20); BUN/CREATININE RATIO 27.27; CALCIUM 8.4 mg/dL (8.2-10.2); CREATININE 0.88 mg/dL (0.60-1.10)
[2017-08-09] MEDS: PROTONIX PO SCH ×2 (05:31→17:10)
[2017-08-09] MEDS: LASIX IVP SCH (05:31)
[2017-08-09] MEDS: VITAMIN D PO SCH (08:08)
[2017-08-09] MEDS: BACTRIM DS 800/160 MG PO SCH ×2 (08:09→20:02)
[2017-08-09] MEDS: COZAAR PO SCH (08:09)
[2017-08-09] MEDS: COREG PO SCH ×2 (08:10→18:14)
[2017-08-09] MEDS: CORDARONE PO SCH ×2 (08:11→20:02)
[2017-08-09] MEDS: MEGACE PO SCH (08:12)
[2017-08-09] MEDS: COLACE PO SCH (08:12)
[2017-08-09] MEDS: SOLU-CORTEF 100 MG IVP SCH ×2 (08:13→20:02)
[2017-08-09] MEDS: FLOMAX PO SCH (08:13)
[2017-08-09] MEDS ORDERED: LASIX IVP STA (08:35)
--- NOTE | 2017-08-09 08:58 | ECHO2D ---
Date of Exam: 08/05/17 Ordering Physician: KELSI MURILLO Room #: [facility] 3 Reason for Echo: CONGESTIVE HEART FAILURE M-Mode Normal Adult Results LV Dimensions Normal Adult Results AoV Opening excursions >1.6 >1.6 LVEDD-base- 3.5-5.8 3.6 Ao root dimensions 2.0-3.7 3.1 LVESD-base- 3.1-4.6 L. Atrium dimensions 1.9-3.8 3.5 Post. Wall thickness 0.8-1.1 1.1 IV septum (thickness) 0.7-1.2 1.2 Post. Wall excursion 0.72-1.3 0.8 Septal motion 0.4 Systolic motion R. Ventricular cavity 1.5-2.0 NORMAL LVEF 60% 35% Paradoxical septal wall motion NORMAL 2-D : HYPOKINETIC LEFT VENTRICLE-NO EFFUSION, NO THROMBUS, NORMAL LEFT VENTRICLE AND LEFT ATRIAL SIZE, NORMAL VALVES COLOR FLOW: MODERATE MITRAL REGURGITATION M-MODE: MV: NORMAL AV: NORMAL TV: NORMAL PV: CHAMBER SIZE: NORMAL WALL MOTION: HYPOKINETIC LEFT VENTRICLE PERICARDIUM: NORMAL INTERPRETATION: 1. BORDERLINE LEFT VENTRICULAR HYPERTROPHY 2. HYPOKINETIC LEFT VENTRICLE--EJECTION FRACTION 35% 3. NORMAL VALVES MTDD
--- NOTE | 2017-08-09 09:10 | PN ---
DATE OF SERVICE: 08/08/17 SUBJECTIVE: The patient had this morning gone into acute respiratory distress. The patient had acute CHF. The patient was given 40mg of Lasix and also some Dilaudid and condition improved within 45 minutes and he was not in distress and he was hungry. The patient's does have any bowel movement for past 24 hours we will do Dulcolax suppository. He is comfortable. PHYSICAL EXAMINATION: HEENT: Head normocephalic, atraumatic. Eyes: Extraocular muscles are intact. Pupils are equal, round and reactive to light and accommodation. Ears: No lesions. Nose appeared normal. Throat: No exudate or erythema. NECK: Supple. No JVD, no carotid bruit. No lymphadenopathy or thyromegaly. LUNGS: Few crepitations bilaterally with mild wheeze. Percussion note normal. Chest symmetrical. HEART: S1, S2, no S3. No murmurs. No cyanosis or clubbing. No ascites. Pulses: Dorsalis pedis and posterior tibial pulses +1 to +2 both sides. ABDOMEN: Soft. Nontender. Bowel sounds active. No CVA tenderness. No mass felt. EXTREMITIES: No edema. Full range of motion of all extremities, equal. NEUROLOGIC: No focal deficit. Cranial nerves II through XII are grossly intact. No headache, no double vision or headache. SKIN: Not dry. Intact. Turgor - normal. LYMPHATIC: No palpable lymph nodes/no lymphedema. MUSCULOSKELETAL: Normal joints with no swelling. Muscle tone is normal. ASSESSMENT: 1. Acute CHF 2. Status post surgery for small bowel obstruction. 3. Intermittent abdominal pain every since he has been hospitalized requiring Dilaudid. His abdominal pain is secondary to mesenteric ischemia and or small bowl obstruction intermittent. PLAN: 1. The patient's IV will be discontinued 2. He will be continued on Antibiotics for decubitus which is small and superficial. 3. He has multiple other medical problems. The patient's in the room and the case discussed with her. The patient was seen and examined with Nurse Practitioner and Window Shade Ring Coverer. TIME SPENT: More than 45-60 minutes, Extensive. Plan and coordination of the patient's care discussed in the presence of nurse. GRISEL
[2017-08-09] MEDS: FLUDROCORTISONE ACETATE 0.1 MG PO SCH (09:20)
[2017-08-09] MEDS: HUMALOG SUBCUT PRN ×2 (12:25→20:04)
--- NOTE | 2017-08-09 13:21 | PCM.PROG ---
Attending Provider: ATTENDING PROVIDER: Dr. KELSI MURILLO DATE OF SERVICE: 08/09/17 SUBJECTIVE: This 76 year old WHITE/ M was hospitalized 08/01/17. The patient is hospitalized with CHF, bronchitis and hypoxemia. The patient's condition is stabilized. He is feeling better. He is oriented times three. The patient's is in room. He has dry creps bilaterally and air entry is acceptable. REVIEW OF SYSTEMS: CONSTITUTIONAL: No night sweats. No fatigue, malaise, lethargy. No fever or chills. HEENT: Eyes: No visual changes. No eye pain. No eye discharge. ENT: No runny nose. No epistaxis. No sinus pain. No odynophagia. No congestion. RESPIRATORY: No cough, no congestion. No hemoptysis. No shortness of breath. CARDIOVASCULAR: No angina symptoms. No CHF symptoms. No atypical chest pain for CAD. No palpitations. No orthopnea.. GASTROINTESTINAL: No abdominal pain. No nausea or vomiting. No diarrhea or constipation. No hematemesis. No hematochezia. GENITOURINARY: No urgency. No frequency. No dysuria. No hematuria. No obstructive symptoms. No discharge. No pain. No significant abnormal bleeding. MUSCULOSKELETAL: No musculoskeletal pain; no joint swelling. NEUROLOGICAL: Awake, alert, oriented to time, place and person. No headache. No neck pain. No syncope. No seizures. No dizziness. PSYCHIATRIC: Not anxious. No depression. No suicidal thoughts. No homicidal thoughts. SKIN: No rash. Abdominal incision healing. Pressure ulcer buttock. ENDOCRINE: No unexplained weight loss. No weight gain. HEMATOLOGIC/LYMPHATIC: No anemia. No purpura. No petechiae. No prolonged or excessive bleeding. No palpable lymph nodes. PHYSICAL EXAMINATION: GENERAL: The patient is awake, alert and oriented, lying in bed in no distress. VITAL SIGNS: Temperature 98.1 F, Pulse 73, Respiratory Rate 16, BP 116/67, Pulse Ox 90% HEENT: Head normocephalic, atraumatic. Eyes: Extraocular muscles are intact. Pupils are equal, round and reactive to light and accommodation. Ears: No lesions. Nose appeared normal. Throat: No exudate or erythema. NECK: Supple. No JVD, no carotid bruit. No lymphadenopathy or thyromegaly. LUNGS: Clear to auscultation. Percussion note normal. Chest symmetrical. HEART: S1, S2, no S3. No murmurs. No cyanosis or clubbing. No ascites. Pulses: Dorsalis pedis and posterior tibial pulses +1 to +2 both sides. ABDOMEN: Soft. Non-tender. Bowel sounds active. No CVA tenderness. No mass felt. EXTREMITIES: Trace edema. Full range of motion of all extremities, equal. NEUROLOGIC: No focal deficit. Cranial nerves II through XII are grossly intact. No headache, no double vision or headache. SKIN: Not dry. Intact. Turgor-normal. LYMPHATIC: No palpable lymph nodes/no lymphedema. MUSCULOSKELETAL: Normal joints with no swelling. Muscle tone is normal. LAB REVIEW: 08/09/17 04:30 08/09/17 04:30 08/09/17 04:30: Sodium 142, Potassium 5.0, Chloride 106, Carbon Dioxide 29, Anion Gap 12.0, BUN 24 H, Creatinine 0.88, Estimated GFR (MDRD) 85.00, BUN/ Creatinine Ratio 27.27, Glucose 130 H, Calcium 8.4, Total Bilirubin 0.52, AST 14 L, ALT 20, Alkaline Phosphatase 55 L, Total Protein 5.0 L, Albumin 1.5 L, Globulin 3.5, Albumin/Globulin Ratio 0.43 08/09/17 04:30: WBC 20.61 H, RBC 3.78 L, Hgb 10.6 L, Hct 32.1 L, MCV 84.9, MCH 28.0, MCHC 33.0, RDW Coeff of Katalina 17.8 H, Plt Count 378, Immature Gran % (Auto) 1.0, Neut % (Auto) 91.2, Lymph % (Auto) 5.4 L, Roosevelt % (Auto) 2.3, Eos % (Auto) 0.0, Baso % (Auto) 0.1, Immature Gran # (Auto) 0.2, Neut # 18.8 H, Lymph # 1.1, Roosevelt # 0.5, Eos # 0.0, Baso # 0.0 ASSESSMENT: 1. Abdominal incision healing, no dehiscence. 2. Pressure ulcer on buttock. 3. CHF under control. 4. ARDS secondary to pulmonary edema, COPD and bronchitis. 5. Intermittent small bowel obstruction. 6. CAD. 7. Severe peripheral arterial disease. 8. Chronic mesenteric ischemia. PLAN: 1. Continue IV Lasix, increase to 40 mg 2. Continue steroids, antibiotics and nebs treatment 3. Encourage patient to eat 4. Nutritional status needs improved 5. Decubitus care is taken care of 6. Have patient up to chair 7. Discontinue potassium Plan and coordination of the patient's care discussed in the presence of [employer] and nurse. CONDITION: Stable SCRIBED BY: KAMINI BUTTERFIELD [employer] scribed while in presence of service performed by Dr. KELSI MURILLO on 08/09/17 ([id number])
--- NOTE | 2017-08-09 15:08 | PN ---
08/04/17: Critical care with acute CHF times spent an hour and a half 08/05/17: Extensive. GRISEL
--- NOTE | 2017-08-09 15:20 | PN ---
DATE OF SERVICE: 08/06/17 SUBJECTIVE: 76 year old white male hospitalized with bronchitis, hypoxemia, hypokalemia and anemia. The patient's condition has improved and he has been given a couple of units of packed red cells. The patient's anemia was symptomatic which CHF and poor intake. The patient's bronchitis has resolved and Hypokalemia has resolved. The patient has acute CHF was pulmonary edema two days ago which has practically has resolved and his appetite has improved. Still weak. REVIEW OF SYSTEMS: CONSTITUTIONAL: No night sweats. No fatigue, malaise, lethargy. No fever or chills. Weakness. HEENT: Eyes: No visual changes. No eye pain. No eye discharge. ENT: No runny nose. No epistaxis. No sinus pain. No sore throat. No odynophagia. No congestion. RESPIRATORY: No cough, no congestion. No hemoptysis. No shortness of breath. CARDIOVASCULAR: No angina symptoms. No CHF symptoms. No atypical chest pain for CAD. No palpitations. No orthopnea. GASTROINTESTINAL: No abdominal pain. No nausea or vomiting. No diarrhea or constipation. No hematemesis. No hematochezia. GENITOURINARY: No urgency. No frequency. No dysuria. No hematuria. No obstructive symptoms. No discharge. No pain. No significant abnormal bleeding. MUSCULOSKELETAL: No musculoskeletal pain; no joint swelling. NEUROLOGICAL: No headache. No neck pain. No syncope. No seizures. No dizziness. PSYCHIATRIC: Not anxious. No depression. No suicidal thoughts. No homicidal thoughts. SKIN: No rash. No lesions. No wounds. ENDOCRINE: No unexplained weight loss. No weight gain. HEMATOLOGIC/LYMPHATIC: No anemia. No purpura. No petechiae. No prolonged or excessive bleeding. No palpable lymph nodes. PHYSICAL EXAMINATION: GENERAL: The patient is oriented to time, place and person. VITAL SIGNS: Temperature 98.2, pulse 77, respiratory rate 20, blood pressure 150/70 and pulse ox 95%. HEENT: Head normocephalic, atraumatic. Eyes: Extraocular muscles are intact. Pupils are equal, round and reactive to light and accommodation. Ears: No lesions. Nose appeared normal. Throat: No exudate or erythema. NECK: Supple. No JVD, no carotid bruit. No lymphadenopathy or thyromegaly. LUNGS: Decreased breath sounds with few crepitations. Percussion note normal. Chest symmetrical. HEART: S1, S2, questionable S3. No murmurs. No cyanosis or clubbing. No ascites. Pulses: Dorsalis pedis and posterior tibial pulses +1 to +2 both sides. ABDOMEN: Soft. Nontender. Bowel sounds active. No CVA tenderness. No mass felt. EXTREMITIES: No edema. Full range of motion of all extremities, equal. NEUROLOGIC: No focal deficit. Cranial nerves II through XII are grossly intact. No headache, no double vision or headache. SKIN: Not dry. Intact. Turgor - normal. LYMPHATIC: No palpable lymph nodes/no lymphedema. MUSCULOSKELETAL: Normal joints with no swelling. Muscle tone is normal. LABS: Echo showed LV ejection fraction 30-35%. ASSESSMENT: 1. Acute CHF has resolved, under control 2. Coronary artery disease 3. Severe peripheral arterial disease 4. Recent exploratory laparotomy for intestinal obstruction done by Dr. Bowden 5. Diabetes Mellitus 6. Anemia requiring blood transfusions, the patient doesn't have any evidence of active GI bleed was in the room and explained about all this findings. The patient's condition has been stabilized. PLAN: 1. To be given 20mg IV Lasix now and 20mg QAM 2. BNP to be done tomorrow morning, blood sugars are high because the patient is on steroids. 3. CHF education carried out. PROGNOSIS: Guarded CONDITION: Stable. TIME SPENT: More than 30 minutes. Plan and coordination of the patient's care discussed in the presence of nurse. GRISEL
--- NOTE | 2017-08-09 15:47 | PN ---
DATE OF SERVICE: 08/05/17 SUBJECTIVE: 76 year old white male hospitalized with acute bronchitis, hypoxemia, hypokalemia. His condition has steadily improved. Yesterday he went in to acute pulmonary edema with acute CHF. The patient's condition has resolved. The patient was given two units of packed red cells yesterday, his hgb dropped to 8 and he was symptomatic from it with shortness of breath. Obviously the patient went into CHF the blood transfusions was given while still in pulmonary edema precautions were taken and now the hgb is 10.9, hct 32, WBC 19,000, creatinine 0.8, BUN 18, potassium 3.1. REVIEW OF SYSTEMS: CONSTITUTIONAL: No night sweats. No fatigue, malaise, lethargy. No fever or chills. HEENT: Eyes: No visual changes. No eye pain. No eye discharge. ENT: No runny nose. No epistaxis. No sinus pain. No sore throat. No odynophagia. No congestion. RESPIRATORY: No cough, no congestion. No hemoptysis. No shortness of breath. CARDIOVASCULAR: No angina symptoms. No CHF symptoms. No atypical chest pain for CAD. No palpitations. No orthopnea. GASTROINTESTINAL: No abdominal pain. No nausea or vomiting. No diarrhea or constipation. No hematemesis. No hematochezia. GENITOURINARY: No urgency. No frequency. No dysuria. No hematuria. No obstructive symptoms. No discharge. No pain. No significant abnormal bleeding. MUSCULOSKELETAL: No musculoskeletal pain; no joint swelling. NEUROLOGICAL: No headache. No neck pain. No syncope. No seizures. No dizziness. PSYCHIATRIC: Not anxious. No depression. No suicidal thoughts. No homicidal thoughts. SKIN: No rash. No lesions. No wounds. ENDOCRINE: No unexplained weight loss. No weight gain. HEMATOLOGIC/LYMPHATIC: No anemia. No purpura. No petechiae. No prolonged or excessive bleeding. No palpable lymph nodes. PHYSICAL EXAMINATION: GENERAL: The patient is oriented to time, place and person. VITAL SIGNS: Temperature 98, pulse 80, respiratory rate 13, blood pressure 150/ 76 and pulse ox 99%. HEENT: Head normocephalic, atraumatic. Eyes: Extraocular muscles are intact. Pupils are equal, round and reactive to light and accommodation. Ears: No lesions. Nose appeared normal. Throat: No exudate or erythema. NECK: Supple. No JVD, no carotid bruit. No lymphadenopathy or thyromegaly. LUNGS: Decreased breath sounds but clear to auscultation. Percussion note normal. Chest symmetrical. HEART: S1, S2, no S3. No murmurs. No cyanosis or clubbing. No ascites. Pulses: Dorsalis pedis and posterior tibial pulses +1 to +2 both sides. ABDOMEN: Soft. Nontender. Bowel sounds active. No CVA tenderness. No mass felt. EXTREMITIES: No edema. Full range of motion of all extremities, equal. NEUROLOGIC: No focal deficit. Cranial nerves II through XII are grossly intact. No headache, no double vision or headache. SKIN: Not dry. Intact. Turgor - normal. LYMPHATIC: No palpable lymph nodes/no lymphedema. MUSCULOSKELETAL: Normal joints with no swelling. Muscle tone is normal. LABS: Echocardiogram done which showed LV ejection fraction of 35% with borderline LVH. Otherwise no effusion and the valves are normal. ASSESSMENT: 1. Acute pulmonary edema resolved 2. Anemia is under control with no evidence of active GI bleed. The patient was given two units of packed red cells 3. Acute respiratory failure, resolved 4. Bronchitis symptoms under control 5. Hypokalemia still persists but at acceptable level PLAN: 1. Continue IV Lasix 2. Continue IV Solu-Cortef 3. Continue to monitor blood pressure; now systolic 131 in the morning it was 148 systolic. 4. The patient is strongly advised to eat mostly protein containing products 5. Explained and educated both patient and the about congestive heart failure. CONDITION: Stable The patient will be given Potassium supplements. The is present in the room and she is very happy with patient's progress. The patient had good breakfast and he is waiting for his lung. TIME SPENT: More than 60 minutes. Plan and coordination of the patient's care discussed in the presence of nurse. GRISEL
--- NOTE | 2017-08-09 15:47 | RS.OTINEVL ---
Subjective - Patient information Date of Evaluation: 08/09/17 Date of Arrival on Unit: 08/01/17 Admitted From:: [facility] Usual Living Arrangement: [facility] Living Arrangement Comments: Pt was living at home with his before he had a colon resection. Following the colon resection he was hospitalized for 100 days. Pt then went to [facility] for 8 - 10 days and is now admitted on 08/01/17 in [facility]. 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 Surgical History: Hip Replacement Surgical History Comments:: colon resection, Subjective Information/ Patient Comments:: "I have a at home." "I don't walk." - Level of function Prior to this admission, the patient could do the following:: Independent Selfcare, Independent ADL's, Independent Ambulation, Participated in Social Activities Outside home Current Equipment Used at Home: Rolling walker, wheelchair, hospital bed, high- rise toliet seat. Pain Assessment - Pain Pain Score: 8 Side: right Pain Location Body Site: Sacrum Pain Aggravating Factors: Sitting Pain Alleviating Factors: Medication Interventions - Objective Patient Orientation: Person, Place, Time, Situation Current Interventions: IV's, Oxygen, Telemetry Interventions - ROM Right Upper Extremity AROM: WFL's Left Upper Extremity AROM: WFL's - Strength Right Upper Extremity Strength: Severe Weakness Left Upper Extremity Strength: Severe Weakness - Sensation Right Upper Extremity Sensation: Intact/Normal Left Upper Extremity Sensation: Intact/Normal Balance - Sitting Balance Static Sitting Balance: Poor Dynamic Sitting Balance: Poor - Standing Balance Static Standing Balance: Poor Dynamic Standing Balance: Poor ADL Skills - Self Feeding Self Feeding: Supervision - Grooming Grooming: Min Assist - Bathing Bathing UE: Min Assist Bathing LE: Max Assist - Dressing Dressing UE: Mod Assist Dressing LE: Max Assist - Toilet Management Toileting Management: Max Assist, 2 person assist Functional Mobility - Bed Mobility Rolling R/L: CGA Scooting: Min Assist Supine to Sit: Min Assist Sit to Supine: Min Assist - Transfers Sit to Stand: Max Assist, 2 person assist Stand to Sit: CGA Stand Pivot Transfers: Max Assist, 2 person assist - Ambulation Weight Bearing Status: FWB Assistive Device Used: Rolling Walker Assistance needed with Ambulation: Max Assist, 2 person assist - Safety Awareness Safety Awareness: Fair Additional Treatment Performed - Additional units charged ADL: 15 - Time with patient Total treatment time: 30 Activities Patient Interests:: Watching Television Patient Education Patient Education: Education of diagnosis, Home Exercise Program, Education of Plan of Care Teaching Recipient: Patient Teaching Methods: Teach Back Method Used, Discussion Assessment Problem List:: Decreased level of function, Requires training/education, Decreased safety/Risk of falls, Weakness, Pain limits previous level of function Rehab Potential: Good Further Therapy Indicated?: Yes Short Term Goals - Goals GOAL 1: Pt to sit EOB for 10 minutes and complete UB therex. Goal to be met by: 08/16/17 GOAL 2: Pt to increase strength of UB to 4/5 Goal to be met by: 08/16/17 Progress towards goal: Met GOAL 3: Pt to tolerate bed mobility as CGA. Goal to be met by: 08/16/17 Detention Goals GOAL 1: Pt to sit EOB for 15 minutes and complete UB therex. Goal to be met by: 08/23/17 GOAL 2: Pt to increase strength of UB to 4+/5. Goal to be met by: 08/23/17 GOAL 3: Pt to tolerate bed mobility as Mod-Indep. . Goal to be met by: 08/23/17 Plan Plan of Care: Therapeutic EX, Neuromuscular Re-Educ, Therapeutic Activity, Self- Care/Home Management Modalities: Hot Pack, Electrical Stimulation Frequency of Treatment: 1-2 X day, as tolerated Duration of Treatment: 2 Weeks Anticipated Discharge Destination: Home
[2017-08-09] MEDS: ATIVAN PO PRN (20:03)
[2017-08-10] MEDS: DILAUDID 2 MG/ML SYRINGE IVP SCH ×8 (02:50→20:42)
[2017-08-10] MEDS: DUONEB NEB SCH ×4 (05:00→23:20)
[2017-08-10] MEDS: LASIX IVP SCH (05:31)
[2017-08-10] MEDS: PROTONIX PO SCH ×2 (05:31→16:52)
[2017-08-10 05:36] LABS: BASOPHILS % (AUTO) 0.1 % (0.0-3.0); HEMATOCRIT 31.1 % (42.0-52.0); HEMOGLOBIN 10.4 g/dl (14.0-18.0); IMMATURE GRANULOCYTE % (AUTO) 1.4 % (0.0-5.0); LYMPHOCYTES # (AUTO) 1.4 K/uL (0.60-3.4); LYMPHOCYTES % (AUTO) 6.7 (10.0-50.0); MEAN CORPUSCULAR HEMOGLOBIN 28.2 pg (27.0-31.0); MEAN CORPUSCULAR HGB CONC 33.4 (31.8-35.4); MEAN CORPUSCULAR VOLUME 84.3 fl (80.0-94.0); MONOCYTES # (AUTO) 0.5 K/uL (0.4-2.0); MONOCYTES % (AUTO) 2.4 (0-10); NEUTROPHILS # (AUTO) 18.7 K/ul (2.0-6.9); NEUTROPHILS % (AUTO) 89.4; PLATELET COUNT 355 10^3/uL (140-440); RED BLOOD COUNT 3.69 10^6/ul (4.70-6.10)
[2017-08-10 05:58] LABS: ALBUMIN 1.6 g/dL (3.4-5.0); ALBUMIN/GLOBULIN RATIO 0.47; ANION GAP 12.7; BILIRUBIN,TOTAL 0.43 mg/dL (0.00-1.20); BUN/CREATININE RATIO 26.66; CALCIUM 8.5 mg/dL (8.2-10.2); CREATININE 1.05 mg/dL (0.60-1.10); POTASSIUM 3.7 mmol/L (3.5-5.1)
--- NOTE | 2017-08-10 09:07 | PN ---
DATE OF SERVICE: 08/04/17 SUBJECTIVE: 76 year old white male went into acute distress approximately 4pm I was called. The patient's saturation had dropped to 87%. I examined the patient later on about 15-20 minutes and the patient was in congestive heart failure which was confirmed with the chest x-ray. The patient's ABG with Ventimask were acceptable with oxygen saturation of 93%. The patient is no intubation, no respirator but other measures for resuscitation. REVIEW OF SYSTEMS: CONSTITUTIONAL: No night sweats. No fatigue, malaise, lethargy. No fever or chills. HEENT: Eyes: No visual changes. No eye pain. No eye discharge. ENT: No runny nose. No epistaxis. No sinus pain. No sore throat. No odynophagia. No congestion. RESPIRATORY: No cough, no congestion. No hemoptysis. Shortness of breath onset was a couple of hours. . CARDIOVASCULAR: No angina symptoms. No CHF symptoms. No atypical chest pain for CAD. No palpitations. No orthopnea.Telemetry showed sinus rhythm with sinus tachycardia. GASTROINTESTINAL: No abdominal pain. No nausea or vomiting. No diarrhea or constipation. No hematemesis. No hematochezia. GENITOURINARY: No urgency. No frequency. No dysuria. No hematuria. No obstructive symptoms. No discharge. No pain. No significant abnormal bleeding. MUSCULOSKELETAL: No musculoskeletal pain; no joint swelling. NEUROLOGICAL: No headache. No neck pain. No syncope. No seizures. No dizziness. PSYCHIATRIC: Not anxious. No depression. No suicidal thoughts. No homicidal thoughts. SKIN: No rash. No lesions. No wounds. ENDOCRINE: No unexplained weight loss. No weight gain. HEMATOLOGIC/LYMPHATIC: No anemia. No purpura. No petechiae. No prolonged or excessive bleeding. No palpable lymph nodes. PHYSICAL EXAMINATION: GENERAL: The patient is oriented to time, place and person and somewhat pale. HEENT: Head normocephalic, atraumatic. Eyes: Extraocular muscles are intact. Pupils are equal, round and reactive to light and accommodation. Ears: No lesions. Nose appeared normal. Throat: No exudate or erythema. NECK: Supple. JVP 4cm, no carotid bruit. No lymphadenopathy or thyromegaly. LUNGS: Bilateral wheeze with crepitations. Percussion note normal. Chest symmetrical. HEART: S1, S2, Questionable S3. No murmurs. No cyanosis or clubbing. No ascites. Pulses: Dorsalis pedis and posterior tibial pulses +1 to +2 both sides. ABDOMEN: Soft. Nontender. Bowel sounds active. No CVA tenderness. No mass felt. EXTREMITIES: No edema. Full range of motion of all extremities, equal. NEUROLOGIC: No focal deficit. Cranial nerves II through XII are grossly intact. No headache, no double vision or headache. SKIN: Not dry. Intact. Turgor - normal. LYMPHATIC: No palpable lymph nodes/no lymphedema. MUSCULOSKELETAL: Normal joints with no swelling. Muscle tone is normal. ASSESSMENT: 1. Acute CHF PLAN: 1. The patient had an EKG revealed no acute changes. 2. Telemetry no ST-T wave change, sinus tachycardia. 3. ABG's reviewed 4. Give Lasix which was given 20mg IV and then IV infusing blood so the patient was given IM Lasix 80mg later on. 5. Dilaudid was given 2mg two to three times which helped his dyspnea and tachypnea 6. Vasotec IV 1.25 because systolic blood pressure was later recorded as 160 a little bit above that. After two hours that patient was checked again. The family members were present as was called. Also the son was present who is my patient and they were both explained about patient's condition which is stable now but was critical for the time being. His prognosis is guarded considering multiple medical condition. Some of them are end stage and he is recovering from surgery. TIME SPENT: 1.5 hours critical care face to face. Plan and coordination of the patient's care discussed in the presence of nurse. GRISEL
--- NOTE | 2017-08-10 09:10 | PCM.PROG ---
Attending Provider: ATTENDING PROVIDER: Dr. KELSI MURILLO DATE OF SERVICE: 08/10/17 SUBJECTIVE: This 76 year old WHITE/ M was hospitalized 08/01/17. The patient is seen with Erum, Nurse Practitioner. The patient is lying in bed, alert. is in the room. The patient was up to chair yesterday. The patient has cough and congestion. He is asking for something for pain. He continues to have poor appetite. REVIEW OF SYSTEMS: CONSTITUTIONAL: Weakness. No night sweats. No fever or chills. HEENT: Eyes: No visual changes. No eye pain. No eye discharge. ENT: No runny nose. No epistaxis. No sinus pain. No odynophagia. No congestion. RESPIRATORY: Cough and congestion. No hemoptysis. Shortness of breath. CARDIOVASCULAR: No angina symptoms. No CHF symptoms. No atypical chest pain for CAD. No palpitations. No orthopnea.. GASTROINTESTINAL: Poor appetite. Abdominal pain. No nausea or vomiting. No diarrhea or constipation. No hematemesis. No hematochezia. GENITOURINARY: No urgency. No frequency. No dysuria. No hematuria. No obstructive symptoms. No discharge. No pain. No significant abnormal bleeding. MUSCULOSKELETAL: Pain from wound on buttock. NEUROLOGICAL: Awake, alert, oriented to time, place and person. No headache. No neck pain. No syncope. No seizures. No dizziness. PSYCHIATRIC: Not anxious. No depression. No suicidal thoughts. No homicidal thoughts. SKIN: No rash. Pressure ulcer on buttock. Abdominal surgical incision is clean and dry. ENDOCRINE: No unexplained weight loss. No weight gain. HEMATOLOGIC/LYMPHATIC: No anemia. No purpura. No petechiae. No prolonged or excessive bleeding. No palpable lymph nodes. PHYSICAL EXAMINATION: GENERAL: The patient is awake, alert and oriented, lying in bed in no distress. VITAL SIGNS: Temperature 98.4 F, Pulse 80, Respiratory Rate 21, BP 136/64, Pulse Ox 89% HEENT: Head normocephalic, atraumatic. Eyes: Extraocular muscles are intact. Pupils are equal, round and reactive to light and accommodation. Ears: No lesions. Nose appeared normal. Throat: No exudate or erythema. NECK: Supple. No JVD, no carotid bruit. No lymphadenopathy or thyromegaly. LUNGS: Diminished breath sounds with rhonchi bilaterally. Percussion note normal. Chest symmetrical. HEART: S1, S2, no S3. No murmurs. No cyanosis or clubbing. No ascites. Pulses: Dorsalis pedis and posterior tibial pulses +1 to +2 both sides. ABDOMEN: Soft. Non-tender. Bowel sounds active. No CVA tenderness. No mass felt. Abdominal incision clean and dry. No sign of infection. Pressure ulcer on buttock EXTREMITIES: No edema. Full range of motion of all extremities, equal. NEUROLOGIC: No focal deficit. Cranial nerves II through XII are grossly intact. No headache, no double vision or headache. SKIN: Not dry. Intact. Turgor-normal. LYMPHATIC: No palpable lymph nodes/no lymphedema. MUSCULOSKELETAL: Normal joints with no swelling. Muscle tone is normal. LAB REVIEW: 08/10/17 05:15 08/10/17 05:15 08/10/17 05:15: Sodium 144, Potassium 3.7, Chloride 104, Carbon Dioxide 31, Anion Gap 12.7, BUN 28 H, Creatinine 1.05, Estimated GFR (MDRD) 69.00, BUN/ Creatinine Ratio 26.66, Glucose 192 H, Calcium 8.5, Total Bilirubin 0.43, AST 13 L, ALT 19, Alkaline Phosphatase 55 L, Total Protein 5.0 L, Albumin 1.6 L, Globulin 3.4, Albumin/Globulin Ratio 0.47 08/10/17 05:15: WBC 20.90 H, RBC 3.69 L, Hgb 10.4 L, Hct 31.1 L, MCV 84.3, MCH 28.2, MCHC 33.4, RDW Coeff of Katalina 17.9 H, Plt Count 355, Immature Gran % (Auto) 1.4, Neut % (Auto) 89.4, Lymph % (Auto) 6.7 L, [place] % (Auto) 2.4, Eos % (Auto) 0.0, Baso % (Auto) 0.1, Immature Gran # (Auto) 0.3, Neut # 18.7 H, Lymph # 1.4, [place] # 0.5, Eos # 0.0, Baso # 0.0 ASSESSMENT: 1. Abdominal incision healing, no dehiscence. 2. Pressure ulcer on buttock. 3. CHF under control. 4. ARDS secondary to pulmonary edema, COPD and bronchitis. 5. Intermittent small bowel obstruction. 6. CAD. 7. Severe peripheral arterial disease. 8. Chronic mesenteric ischemia. 9. Anemia PLAN: 1. Continue to hold Coumadin 2. Up and about as tolerated 3. Dr. donahue for wound consult 4. Colace 100 twice a day Plan and coordination of the patient's care discussed in the presence of Cardiology Clinical Consultant and nurse. CONDITION: Stable. SCRIBED BY: KAMINI BUTTERFIELD Brazing Furnace Operator scribed while in presence of service performed by Dr. KELSI MURILLO/ERUM ELLIS APRN on 08/10/17 ([id number])
[2017-08-10] MEDS: BACTRIM DS 800/160 MG PO SCH ×2 (09:35→20:37)
[2017-08-10] MEDS: COREG PO SCH ×2 (09:36→16:52)
[2017-08-10] MEDS: CORDARONE PO SCH ×2 (09:36→20:37)
[2017-08-10] MEDS: FLOMAX PO SCH (09:37)
[2017-08-10] MEDS: COZAAR PO SCH (09:37)
[2017-08-10] MEDS: SOLU-CORTEF 100 MG IVP SCH ×2 (09:38→20:38)
[2017-08-10] MEDS: COLACE PO SCH ×2 (09:38→20:37)
[2017-08-10] MEDS: FLUDROCORTISONE ACETATE 0.1 MG PO SCH (09:40)
[2017-08-10] MEDS: MEGACE PO SCH (09:41)
[2017-08-10] MEDS ORDERED: LASIX IVP STA (10:14)
[2017-08-10] MEDS ORDERED: SOLU-CORTEF 250 MG IVP STA (10:14)
[2017-08-10] MEDS ORDERED: DILAUDID 2 MG/ML SYRINGE IVP STA (10:15)
[2017-08-10] MEDS: HUMALOG SUBCUT PRN ×2 (12:52→22:18)
[2017-08-10] MEDS: ATIVAN PO PRN (20:39)
[2017-08-11] MEDS: DILAUDID 2 MG/ML SYRINGE IVP SCH ×8 (03:00→21:06)
[2017-08-11] MEDS: DUONEB NEB SCH ×4 (05:02→23:06)
[2017-08-11 05:24] LABS: BASOPHILS % (AUTO) 0.1 % (0.0-3.0); HEMATOCRIT 31.9 % (42.0-52.0); HEMOGLOBIN 10.7 g/dl (14.0-18.0); LYMPHOCYTES # (AUTO) 1.1 K/uL (0.60-3.4); LYMPHOCYTES % (AUTO) 4.8 (10.0-50.0); MEAN CORPUSCULAR HEMOGLOBIN 28.4 pg (27.0-31.0); MEAN CORPUSCULAR HGB CONC 33.5 (31.8-35.4); MEAN CORPUSCULAR VOLUME 84.6 fl (80.0-94.0); MONOCYTES # (AUTO) 0.6 K/uL (0.4-2.0); MONOCYTES % (AUTO) 2.7 (0-10); NEUTROPHILS # (AUTO) 20.2 K/ul (2.0-6.9); NEUTROPHILS % (AUTO) 91.4; PLATELET COUNT 342 10^3/uL (140-440); RED BLOOD COUNT 3.77 10^6/ul (4.70-6.10); WHITE BLOOD COUNT 22.04 K/ul (4.2-10.2)
[2017-08-11 05:45] LABS: ALBUMIN 1.6 g/dL (3.4-5.0); ALBUMIN/GLOBULIN RATIO 0.46; ANION GAP 13.9; BILIRUBIN,TOTAL 0.5 mg/dL (0.00-1.20); CALCIUM 8.5 mg/dL (8.2-10.2); POTASSIUM 2.9 mmol/L (3.5-5.1); TOTAL PROTEIN 5.1 g/dL (5.8-8.1)
[2017-08-11] MEDS: PROTONIX PO SCH ×2 (05:58→18:28)
[2017-08-11] MEDS: LASIX IVP SCH (05:58)
[2017-08-11 07:47] LABS: PROTHROMBIN TIME 17.7 SEC (9.3-11.0)
[2017-08-11] MEDS: PERCOCET 5-325 PO PRN (07:50)
[2017-08-11] MEDS: MEGACE PO SCH (09:11)
[2017-08-11] MEDS: BACTRIM DS 800/160 MG PO SCH ×2 (09:12→21:05)
[2017-08-11] MEDS: COLACE PO SCH ×2 (09:13→21:05)
[2017-08-11] MEDS: FLOMAX PO SCH (09:14)
[2017-08-11] MEDS: COREG PO SCH ×2 (09:14→18:28)
[2017-08-11] MEDS: SOLU-CORTEF 100 MG IVP SCH ×2 (09:15→21:05)
[2017-08-11] MEDS: CORDARONE PO SCH ×2 (09:15→21:05)
[2017-08-11] MEDS: COZAAR PO SCH (09:15)
[2017-08-11] MEDS: K-DUR PO SCH ×2 (10:47→18:32)
[2017-08-11] MEDS: HUMALOG SUBCUT PRN (12:16)
[2017-08-11] MEDS: FLUDROCORTISONE ACETATE 0.1 MG PO SCH (12:17)
--- NOTE | 2017-08-11 13:45 | PCM.PROG ---
Attending Provider: ATTENDING PROVIDER: Dr. KELSI MURILLO DATE OF SERVICE: 08/11/17 SUBJECTIVE: This 76 year old WHITE/ M was hospitalized 08/01/17. The patient is seen with Erum, Nurse Practitioner. The patient is lying in bed, alert on venti mask. The patient was seen by Dr. Yi yesterday and is scheduled for debridement today. REVIEW OF SYSTEMS: CONSTITUTIONAL: No night sweats. No fatigue, malaise, lethargy. No fever or chills. HEENT: Eyes: No visual changes. No eye pain. No eye discharge. ENT: No runny nose. No epistaxis. No sinus pain. No odynophagia. No congestion. RESPIRATORY: Positive for cough and congestion. No hemoptysis. Shortness of breath. CARDIOVASCULAR: No angina symptoms. No CHF symptoms. No atypical chest pain for CAD. No palpitations. No orthopnea. GASTROINTESTINAL: No abdominal pain. No nausea or vomiting. No diarrhea or constipation. No hematemesis. No hematochezia. GENITOURINARY: No urgency. No frequency. No dysuria. No hematuria. No obstructive symptoms. No discharge. No pain. No significant abnormal bleeding. MUSCULOSKELETAL: Pain abdomen and buttock. NEUROLOGICAL: Awake, alert, oriented to time, place and person. No headache. No neck pain. No syncope. No seizures. No dizziness. PSYCHIATRIC: Not anxious. No depression. No suicidal thoughts. No homicidal thoughts. SKIN: No rash. Pressure ulcer on buttock. Abdominal incision clean and dry. ENDOCRINE: No unexplained weight loss. No weight gain. HEMATOLOGIC/LYMPHATIC: No anemia. No purpura. No petechiae. No prolonged or excessive bleeding. No palpable lymph nodes. PHYSICAL EXAMINATION: GENERAL: The patient is awake, alert and oriented, lying in bed in no distress. VITAL SIGNS: Temperature 98.0 F, Pulse 80, Respiratory Rate 20, BP 157/70, Pulse Ox 92% HEENT: Head normocephalic, atraumatic. Eyes: Extraocular muscles are intact. Pupils are equal, round and reactive to light and accommodation. Ears: No lesions. Nose appeared normal. Throat: No exudate or erythema. NECK: Supple. No JVD, no carotid bruit. No lymphadenopathy or thyromegaly. LUNGS: Diminished breath sounds bilaterally with rhonchi. Percussion note normal. Chest symmetrical. HEART: S1, S2, no S3. No murmurs. No cyanosis or clubbing. No ascites. Pulses: Dorsalis pedis and posterior tibial pulses +1 to +2 both sides. ABDOMEN: Soft. Non-tender. Bowel sounds active. No CVA tenderness. No mass felt. EXTREMITIES: No edema. Full range of motion of all extremities, equal. NEUROLOGIC: No focal deficit. Cranial nerves II through XII are grossly intact. No headache, no double vision or headache. SKIN: Pressure ulcer on buttock. Abdominal incision, healthy looking. Turgor- normal. LYMPHATIC: No palpable lymph nodes/no lymphedema. MUSCULOSKELETAL: Normal joints with no swelling. Muscle tone is normal. LAB REVIEW: 08/11/17 05:15 08/11/17 05:15 08/11/17 05:15: Sodium 146 H, Potassium 2.9 L, Chloride 100, Carbon Dioxide 35 H , Anion Gap 13.9, BUN 28 H, Creatinine 1.00, Estimated GFR (MDRD) 73.00, BUN/ Creatinine Ratio 28.00, Glucose 108 D, Calcium 8.5, Total Bilirubin 0.50, AST 17, ALT 18, Alkaline Phosphatase 56, Total Protein 5.1 L, Albumin 1.6 L, Globulin 3.5, Albumin/Globulin Ratio 0.46 08/11/17 05:15: WBC 22.04 H, RBC 3.77 L, Hgb 10.7 L, Hct 31.9 L, MCV 84.6, MCH 28.4, MCHC 33.5, RDW Coeff of Katalina 17.9 H, Plt Count 342, Immature Gran % (Auto) 1.0, Neut % (Auto) 91.4, Lymph % (Auto) 4.8 L, [place] % (Auto) 2.7, Eos % (Auto) 0.0, Baso % (Auto) 0.1, Immature Gran # (Auto) 0.2, Neut # 20.2 H, Lymph # 1.1, [place] # 0.6, Eos # 0.0, Baso # 0.0 ASSESSMENT: 1. Hypokalemia 2. Abdominal incision healing, no dehiscence. 3. Pressure ulcer on buttock. 4. CHF under control. 5. ARDS secondary to pulmonary edema, COPD and bronchitis. 6. Intermittent small bowel obstruction. 7. CAD. 8. Severe peripheral arterial disease. 9. Chronic mesenteric ischemia. 10. Anemia PLAN: 1. Percocet one now and q.6hr 2. Debridement by Dr. Yi today 3. Potassium today Plan and coordination of the patient's care discussed in the presence of Branch Customer Service Representative and nurse. CONDITION: Guarded SCRIBED BY: KAMINI BUTTERFIELD Circular Gang Saw Operator scribed while in presence of service performed by Dr. KELSI MURILLO/ERUM ELLIS APRN on 08/11/17 ([id number])
--- NOTE | 2017-08-11 14:30 | PN ---
DATE OF SERVICE: 08/10/17 SUBJECTIVE: 76-year-old white male hospitalized with hypoxemia, bronchitis, hypokalemia. The patient has developed respiratory distress syndrome with glassy lungs after he went into acute pulmonary edema. He also has chronic lung disease. The patient, this morning, felt a lot better and was eating but later on during the daytime, the patient's condition worsened, now he has to be put on 50% Venti mask because on 4L his oxygen saturation was 89%. The patient was given 80 mg of Lasix along with Solu-Cortef 250. Will continue IV Solu-Cortef as ordered. The patient's INR is 2.4. The patient's hemoglobin and hematocrit is stable. Kidney functions are stable. The patient's prognosis is poor. The patient is no intubation, no respirator. The is in the room, discussed about the patient' s condition in detail. The patient was also seen and examined with nurse Practitioner. CONDITION: Stable. TOTAL TIME SPENT DURING THE DAY: More than 90 minutes. Plan and coordination of the patient's care discussed in the presence of nurse. GRISEL
--- NOTE | 2017-08-11 14:31 | PN ---
CODING FOR BILLING DR. MURILLO ASKS TO CODE THE VISIT FOR 08/10/17 EXTENSIVE. [facility]
--- NOTE | 2017-08-11 14:53 | CONS ---
DATE OF CONSULTATION: 08/10/17 @ 2:10 P.M. (SCRIBED BY NANCY BHATT) HISTORY OF PRESENT ILLNESS: Mr. Seth was seen at the request of his family physician, Dr. Mao, due to having a decubitus ulcer to the left buttock. With inspection I find the ulcer to be very deep. The wound bed has necrotic tissue to the bone. I will plan to debride the ulcer tomorrow and will culture the base following the procedure. I have given instruction regarding instrumentation needed for the procedure tomorrow to Mr. Seth's nurse. RECOMMENDATIONS: 1. Position the patient on either side, never the back 2. Debridement tomorrow MTDD
[2017-08-11] MEDS: COUMADIN PO SCH (18:29)
[2017-08-11] MEDS: SANTYL TP SCH (21:06)
[2017-08-12] MEDS: DILAUDID 2 MG/ML SYRINGE IVP SCH ×11 (00:20→22:55)
[2017-08-12] MEDS: DUONEB NEB SCH ×4 (05:25→23:00)
[2017-08-12 05:34] LABS: HEMATOCRIT 31.2 % (42.0-52.0); HEMOGLOBIN 10.5 g/dl (14.0-18.0); IMMATURE GRANULOCYTE % (AUTO) 1.2 % (0.0-5.0); LYMPHOCYTES # (AUTO) 0.9 K/uL (0.60-3.4); LYMPHOCYTES % (AUTO) 4.3 (10.0-50.0); MEAN CORPUSCULAR HEMOGLOBIN 28.3 pg (27.0-31.0); MEAN CORPUSCULAR HGB CONC 33.7 (31.8-35.4); MEAN CORPUSCULAR VOLUME 84.1 fl (80.0-94.0); MONOCYTES # (AUTO) 0.5 K/uL (0.4-2.0); MONOCYTES % (AUTO) 2.6 (0-10); NEUTROPHILS # (AUTO) 18.8 K/ul (2.0-6.9); NEUTROPHILS % (AUTO) 91.9; PLATELET COUNT 268 10^3/uL (140-440); RED BLOOD COUNT 3.71 10^6/ul (4.70-6.10); WHITE BLOOD COUNT 20.46 K/ul (4.2-10.2)
[2017-08-12] MEDS: PROTONIX PO SCH ×2 (05:47→16:48)
[2017-08-12] MEDS: LASIX IVP SCH (05:47)
[2017-08-12 05:52] LABS: ALBUMIN 1.6 g/dL (3.4-5.0); ALBUMIN/GLOBULIN RATIO 0.48; ANION GAP 13.3; BILIRUBIN,TOTAL 0.42 mg/dL (0.00-1.20); BUN/CREATININE RATIO 25.43; CALCIUM 8.6 mg/dL (8.2-10.2); CREATININE 1.14 mg/dL (0.60-1.10); POTASSIUM 3.3 mmol/L (3.5-5.1); TOTAL PROTEIN 4.9 g/dL (5.8-8.1)
[2017-08-12] MEDS: HUMALOG SUBCUT PRN ×2 (06:01→21:04)
[2017-08-12] MEDS: SOLU-CORTEF 100 MG IVP SCH ×2 (08:14→21:03)
[2017-08-12] MEDS: BACTRIM DS 800/160 MG PO SCH ×2 (08:24→21:02)
[2017-08-12] MEDS: COLACE PO SCH ×2 (08:24→21:02)
[2017-08-12] MEDS: COREG PO SCH ×2 (08:25→16:48)
[2017-08-12] MEDS: FLOMAX PO SCH (08:25)
[2017-08-12] MEDS: COZAAR PO SCH (08:25)
[2017-08-12] MEDS: K-DUR PO SCH ×3 (08:26→16:48)
[2017-08-12] MEDS: MEGACE PO SCH (08:26)
[2017-08-12] MEDS: FLUDROCORTISONE ACETATE 0.1 MG PO SCH (08:27)
[2017-08-12] MEDS: CORDARONE PO SCH ×2 (08:28→21:02)
[2017-08-12] MEDS: COUMADIN PO SCH (16:48)
[2017-08-12] MEDS ORDERED: SOLU-CORTEF 250 MG ONE (17:56)
[2017-08-12] MEDS ORDERED: LASIX IVP STA (17:58)
[2017-08-12] MEDS ORDERED: SOLU-CORTEF 250 MG IVP STA (17:59)
[2017-08-12] MEDS: SANTYL TP SCH (21:03)
[2017-08-13] MEDS: DILAUDID 2 MG/ML SYRINGE IVP SCH ×12 (01:02→22:51)
[2017-08-13 05:05] LABS: HEMATOCRIT 30.4 % (42.0-52.0); HEMOGLOBIN 10.1 g/dl (14.0-18.0); LYMPHOCYTES # (AUTO) 0.8 K/uL (0.60-3.4); LYMPHOCYTES % (AUTO) 3.9 (10.0-50.0); MEAN CORPUSCULAR HEMOGLOBIN 28.1 pg (27.0-31.0); MEAN CORPUSCULAR HGB CONC 33.2 (31.8-35.4); MEAN CORPUSCULAR VOLUME 84.4 fl (80.0-94.0); MONOCYTES # (AUTO) 0.5 K/uL (0.4-2.0); MONOCYTES % (AUTO) 2.4 (0-10); NEUTROPHILS # (AUTO) 18.8 K/ul (2.0-6.9); NEUTROPHILS % (AUTO) 92.7; PLATELET COUNT 244 10^3/uL (140-440); WHITE BLOOD COUNT 20.31 K/ul (4.2-10.2)
[2017-08-13 05:14] LABS: PROTHROMBIN TIME 24.7 SEC (9.3-11.0)
[2017-08-13] MEDS: DUONEB NEB SCH ×4 (05:24→23:00)
[2017-08-13 05:26] LABS: ALBUMIN 1.5 g/dL (3.4-5.0); ALBUMIN/GLOBULIN RATIO 0.44; ANION GAP 13.6; BILIRUBIN,TOTAL 0.41 mg/dL (0.00-1.20); BUN/CREATININE RATIO 26.66; CALCIUM 8.2 mg/dL (8.2-10.2); CREATININE 1.2 mg/dL (0.60-1.10); POTASSIUM 3.6 mmol/L (3.5-5.1); TOTAL PROTEIN 4.9 g/dL (5.8-8.1)
[2017-08-13] MEDS: LASIX IVP SCH (06:40)
[2017-08-13] MEDS: HUMALOG SUBCUT PRN ×3 (06:40→21:06)
[2017-08-13] MEDS: PROTONIX PO SCH ×2 (06:40→18:17)
[2017-08-13] MEDS: CORDARONE PO SCH ×2 (09:31→21:07)
[2017-08-13] MEDS: MEGACE PO SCH (09:31)
[2017-08-13] MEDS: COZAAR PO SCH (09:31)
[2017-08-13] MEDS: K-DUR PO SCH ×3 (09:31→18:17)
[2017-08-13] MEDS: COLACE PO SCH ×2 (09:31→21:07)
[2017-08-13] MEDS: FLOMAX PO SCH (09:31)
[2017-08-13] MEDS: BACTRIM DS 800/160 MG PO SCH ×2 (09:31→21:07)
[2017-08-13] MEDS: COREG PO SCH ×2 (09:32→18:17)
[2017-08-13] MEDS: SOLU-CORTEF 100 MG IVP SCH ×2 (09:32→21:06)
[2017-08-13] MEDS: FLUDROCORTISONE ACETATE 0.1 MG PO SCH (09:35)
[2017-08-13] MEDS: COUMADIN PO SCH (18:17)
[2017-08-13] MEDS: SANTYL TP SCH (21:07)
[2017-08-13] MEDS: ATIVAN PO PRN (22:51)
[2017-08-14] MEDS: DILAUDID 2 MG/ML SYRINGE IVP SCH ×12 (00:49→23:48)
[2017-08-14] MEDS: PERCOCET 5-325 PO PRN (02:27)
[2017-08-14] MEDS: DUONEB NEB SCH ×4 (05:07→23:00)
[2017-08-14 05:31] LABS: BASOPHILS % (AUTO) 0.1 % (0.0-3.0); HEMATOCRIT 32.1 % (42.0-52.0); HEMOGLOBIN 10.5 g/dl (14.0-18.0); IMMATURE GRANULOCYTE % (AUTO) 1.3 % (0.0-5.0); LYMPHOCYTES # (AUTO) 1.3 K/uL (0.60-3.4); LYMPHOCYTES % (AUTO) 4.8 (10.0-50.0); MEAN CORPUSCULAR HEMOGLOBIN 27.9 pg (27.0-31.0); MEAN CORPUSCULAR HGB CONC 32.7 (31.8-35.4); MEAN CORPUSCULAR VOLUME 85.1 fl (80.0-94.0); MONOCYTES # (AUTO) 0.5 K/uL (0.4-2.0); MONOCYTES % (AUTO) 1.8 (0-10); NEUTROPHILS # (AUTO) 24.2 K/ul (2.0-6.9); PLATELET COUNT 234 10^3/uL (140-440); RED BLOOD COUNT 3.77 10^6/ul (4.70-6.10); WHITE BLOOD COUNT 26.28 K/ul (4.2-10.2)
[2017-08-14 05:42] LABS: PROTHROMBIN TIME 28.6 SEC (9.3-11.0)
[2017-08-14 05:53] LABS: ALBUMIN 1.6 g/dL (3.4-5.0); ALBUMIN/GLOBULIN RATIO 0.44; ANION GAP 16.8; BILIRUBIN,TOTAL 0.53 mg/dL (0.00-1.20); BUN/CREATININE RATIO 24.82; CALCIUM 8.6 mg/dL (8.2-10.2); CREATININE 1.45 mg/dL (0.60-1.10); POTASSIUM 4.8 mmol/L (3.5-5.1); TOTAL PROTEIN 5.2 g/dL (5.8-8.1)
[2017-08-14] MEDS: PROTONIX PO SCH ×2 (06:29→17:50)
[2017-08-14] MEDS: LASIX IVP SCH (06:29)
[2017-08-14] MEDS ORDERED: DULCOLAX RC STA (08:15)
[2017-08-14] MEDS ORDERED: ZOFRAN 4 MG/2 ML IVP PRN (08:30)
[2017-08-14] MEDS: SOLU-CORTEF 100 MG IVP SCH ×2 (09:44→21:29)
--- NOTE | 2017-08-14 10:44 | CONS ---
DATE OF CONSULTATION: 08/11/17 @ 9793 (SCRIBED BY NANCY BHATT) Sharp debridement was carried out today on the decubitus ulcer. The patient tolerated the procedure very well. The ulcer should be dressed with a warm moist dressing and dry bandage applied twice during the day (wet to dry). At night the area should be cleansed and dried thoroughly. Santyl ointment should then be applied and left throughout the night. This should be reapplied as needed throughout the night. The patient should never be positioned on his back to aide with healing of the ulcer. GRISEL
[2017-08-14] MEDS: BACTRIM DS 800/160 MG PO SCH ×2 (10:49→21:41)
[2017-08-14] MEDS: COLACE PO SCH ×2 (10:49→21:41)
[2017-08-14] MEDS: CORDARONE PO SCH ×2 (10:50→21:42)
[2017-08-14] MEDS: COZAAR PO SCH (10:51)
[2017-08-14] MEDS: COREG PO SCH ×2 (10:51→17:49)
[2017-08-14] MEDS: FLOMAX PO SCH (10:52)
[2017-08-14] MEDS: MEGACE PO SCH (10:53)
[2017-08-14] MEDS: K-DUR PO SCH ×3 (10:53→17:50)
[2017-08-14] MEDS: FLUDROCORTISONE ACETATE 0.1 MG PO SCH (10:53)
--- NOTE | 2017-08-14 13:18 | DI ---
EXAM: Single frontal view of the chest HISTORY: Cough with shortness of breath. COMPARISON: Chest x-ray 08/07/2017 and multiple priors for FINDINGS: Cardiomediastinal silhouette is unchanged with intact sternotomy wires. Bilateral ground-g lass opacities and consolidative changes have mildly worsened. There is no pneumothorax. Questionab le small effusions are present. The osseous structures are unremarkable. IMPRESSION: Worsening ground-glass and consolidative opacities throughout both lungs may represent w orsening atypical pneumonia or edema.
--- NOTE | 2017-08-14 13:39 | PCM.PROG ---
Attending Provider: ATTENDING PROVIDER: Dr. KELSI MURILLO DATE OF SERVICE: 08/14/17 SUBJECTIVE: This 76 year old WHITE/ M was hospitalized 08/01/17. The patient is seen with Erum/Nurse Practitioner. The patient is lying in bed, responds to pain, oriented to person. The patient says pain is worse. REVIEW OF SYSTEMS: CONSTITUTIONAL: Weakness. Confusion. No night sweats. No fever or chills. HEENT: Eyes: No visual changes. No eye pain. No eye discharge. ENT: No runny nose. No epistaxis. No sinus pain. No odynophagia. No congestion. RESPIRATORY: No cough, no congestion. No hemoptysis. No shortness of breath. CARDIOVASCULAR: No angina symptoms. No CHF symptoms. No atypical chest pain for CAD. No palpitations. No orthopnea.. GASTROINTESTINAL: Abdominal pain. No nausea or vomiting. No diarrhea or constipation. No hematemesis. No hematochezia. GENITOURINARY: No urgency. No frequency. No dysuria. No hematuria. No obstructive symptoms. No discharge. No pain. No significant abnormal bleeding. MUSCULOSKELETAL: No musculoskeletal pain; no joint swelling. NEUROLOGICAL: Oriented to person. No headache. No neck pain. No syncope. No seizures. No dizziness. PSYCHIATRIC: Not anxious. No depression. No suicidal thoughts. No homicidal thoughts. SKIN: No rash. Abdominal incision healing well. Pressure ulcer on buttock. ENDOCRINE: No unexplained weight loss. No weight gain. HEMATOLOGIC/LYMPHATIC: No anemia. No purpura. No petechiae. No prolonged or excessive bleeding. No palpable lymph nodes. PHYSICAL EXAMINATION: GENERAL: The patient awakens with pain, is oriented to person in no distress. VITAL SIGNS: Temperature 97.4 F, Pulse 82, Respiratory Rate 22, BP 164/76, Pulse Ox 91% HEENT: Head normocephalic, atraumatic. Eyes: Extraocular muscles are intact. Pupils are equal, round and reactive to light and accommodation. Ears: No lesions. Nose appeared normal. Throat: No exudate or erythema. NECK: Supple. No JVD, no carotid bruit. No lymphadenopathy or thyromegaly. LUNGS: Diminished breath sounds, bilateral rhonchi. Clear to auscultation. Percussion note normal. Chest symmetrical. HEART: S1, S2, no S3. No murmurs. No cyanosis or clubbing. No ascites. Pulses: Dorsalis pedis and posterior tibial pulses +1 to +2 both sides. ABDOMEN: Soft. Non-tender. Bowel sounds active. No CVA tenderness. No mass felt. EXTREMITIES: No edema. Full range of motion of all extremities, equal. NEUROLOGIC: No focal deficit. Cranial nerves II through XII are grossly intact. No headache, no double vision or headache. SKIN: Abdominal incision is healing well. Pressure ulcer on buttock. LYMPHATIC: No palpable lymph nodes/no lymphedema. MUSCULOSKELETAL: Normal joints with no swelling. Muscle tone is normal. LAB REVIEW: 08/14/17 05:18 08/14/17 05:18 08/14/17 05:18: PT 28.6 H, INR 2.89 08/14/17 05:18: Sodium 145, Potassium 4.8, Chloride 101, Carbon Dioxide 32 H, Anion Gap 16.8, BUN 36 H, Creatinine 1.45 H, Estimated GFR (MDRD) 48.00, BUN/ Creatinine Ratio 24.82, Glucose 212 H, Calcium 8.6, Total Bilirubin 0.53, AST 23 , ALT 21, Alkaline Phosphatase 59, Total Protein 5.2 L, Albumin 1.6 L, Globulin 3.6, Albumin/Globulin Ratio 0.44 08/14/17 05:18: WBC 26.28 H D, RBC 3.77 L, Hgb 10.5 L, Hct 32.1 L, MCV 85.1, MCH 27.9, MCHC 32.7, RDW Coeff of Katalina 18.2 H, Plt Count 234, Immature Gran % ( Auto) 1.3, Neut % (Auto) 92.0, Lymph % (Auto) 4.8 L, [place] % (Auto) 1.8, Eos % ( Auto) 0.0, Baso % (Auto) 0.1, Immature Gran # (Auto) 0.4, Neut # 24.2 H, Lymph # 1.3, [place] # 0.5, Eos # 0.0, Baso # 0.0 ASSESSMENT: 1. Hypokalemia, resolved 2. Abdominal incision healing, no dehiscence. 3. Pressure ulcer on buttock. 4. CHF under control. 5. ARDS secondary to pulmonary edema, COPD and bronchitis. 6. Intermittent small bowel obstruction. 7. CAD. 8. Severe peripheral arterial disease. 9. Chronic mesenteric ischemia. 10. Anemia PLAN: 1. Chest x-ray 2. Cancel appointment with Dr. Bowden as the patient is not stable enough for transfer 3. Dulcolax suppository 4. The patient would like DNR status. Possible hospice discussed with for future. 5. Hold Coumadin Plan and coordination of the patient's care discussed in the presence of Well Flow Operator and nurse. CONDITION: Guarded; PROGNOSIS: Poor. SCRIBED BY: Aileen HARRIS scribed while in presence of service performed by Dr. KELSI MURILLO/ERUM ELLIS APRN on 08/14/17 ([id number])
[2017-08-14] MEDS: SANTYL TP SCH (21:40)
[2017-08-14] MEDS: HUMALOG SUBCUT PRN (21:40)
[2017-08-15] MEDS: DILAUDID 2 MG/ML SYRINGE IVP SCH ×7 (01:41→13:45)
[2017-08-15 05:03] LABS: BASOPHILS % (AUTO) 0.1 % (0.0-3.0); HEMATOCRIT 31.6 % (42.0-52.0); HEMOGLOBIN 10.2 g/dl (14.0-18.0); IMMATURE GRANULOCYTE % (AUTO) 0.8 % (0.0-5.0); LYMPHOCYTES # (AUTO) 0.6 K/uL (0.60-3.4); LYMPHOCYTES % (AUTO) 2.4 (10.0-50.0); MEAN CORPUSCULAR HEMOGLOBIN 27.9 pg (27.0-31.0); MEAN CORPUSCULAR HGB CONC 32.3 (31.8-35.4); MEAN CORPUSCULAR VOLUME 86.3 fl (80.0-94.0); MONOCYTES # (AUTO) 0.2 K/uL (0.4-2.0); MONOCYTES % (AUTO) 0.8 (0-10); NEUTROPHILS # (AUTO) 22.8 K/ul (2.0-6.9); NEUTROPHILS % (AUTO) 95.9; PLATELET COUNT 168 10^3/uL (140-440); RED BLOOD COUNT 3.66 10^6/ul (4.70-6.10); WHITE BLOOD COUNT 23.82 K/ul (4.2-10.2)
[2017-08-15 05:18] LABS: ALBUMIN 1.5 g/dL (3.4-5.0); ALBUMIN/GLOBULIN RATIO 0.43; ANION GAP 17.4; BILIRUBIN,TOTAL 0.55 mg/dL (0.00-1.20); BUN/CREATININE RATIO 26.74; CALCIUM 8.5 mg/dL (8.2-10.2); CREATININE 1.72 mg/dL (0.60-1.10); POTASSIUM 4.4 mmol/L (3.5-5.1)
[2017-08-15 05:21] LABS: PROTHROMBIN TIME 42.2 SEC (9.3-11.0)
[2017-08-15] MEDS: LASIX IVP SCH (05:35)
[2017-08-15] MEDS: PROTONIX PO SCH (05:36)
[2017-08-15] MEDS: DUONEB NEB SCH ×2 (06:00→11:21)
[2017-08-15] MEDS ORDERED: LASIX IVP PRN (07:58)
[2017-08-15] MEDS: SOLU-CORTEF 100 MG IVP SCH (09:48)
[2017-08-15] MEDS: BACTRIM DS 800/160 MG PO SCH (09:53)
[2017-08-15] MEDS: COLACE PO SCH (09:53)
[2017-08-15] MEDS: COREG PO SCH (09:53)
[2017-08-15] MEDS: COZAAR PO SCH (09:53)
[2017-08-15] MEDS: CORDARONE PO SCH (09:53)
[2017-08-15] MEDS: FLUDROCORTISONE ACETATE 0.1 MG PO SCH (09:54)
[2017-08-15] MEDS: FLOMAX PO SCH (09:54)
[2017-08-15] MEDS: MEGACE PO SCH (09:54)
[2017-08-15] MEDS: K-DUR PO SCH ×2 (09:54→13:36)
--- NOTE | 2017-08-15 10:00 | PCM.PROG ---
Attending Provider: ATTENDING PROVIDER: Dr. KELSI MURILLO DATE OF SERVICE: 08/15/17 SUBJECTIVE: This 76 year old WHITE/ M was hospitalized 08/01/17. The patient is seen with Erum, Nurse Practitioner. The patient is lying in bed, unresponsive. The and family are in the room, states he had a restless night. was moaning through the night. Discussion with and family concerning hospice care starting today. The voices understanding and is in agreement. REVIEW OF SYSTEMS: CONSTITUTIONAL: Lethargic; unresponsive. No night sweats. No fever or chills. HEENT: Eyes: No visual changes. No eye pain. No eye discharge. ENT: No runny nose. No epistaxis. No sinus pain. No odynophagia. No congestion. RESPIRATORY: Shortness of breath. No cough, no congestion. No hemoptysis. CARDIOVASCULAR: No angina symptoms. No CHF symptoms. No atypical chest pain for CAD. No palpitations. No orthopnea.. GASTROINTESTINAL: No abdominal pain. No nausea or vomiting. No diarrhea or constipation. No hematemesis. No hematochezia. GENITOURINARY: No urgency. No frequency. No dysuria. No hematuria. No obstructive symptoms. No discharge. No pain. No significant abnormal bleeding. MUSCULOSKELETAL: Generalized pain. NEUROLOGICAL: Unrsponsive. . No headache. No neck pain. No syncope. No seizures. No dizziness. PSYCHIATRIC: Not anxious. No depression. No suicidal thoughts. No homicidal thoughts. SKIN: No rash. Abdominal incision is healing well. Pressure ulcer on buttock. ENDOCRINE: No unexplained weight loss. No weight gain. HEMATOLOGIC/LYMPHATIC: No anemia. No purpura. No petechiae. No prolonged or excessive bleeding. No palpable lymph nodes. PHYSICAL EXAMINATION: GENERAL: The patient is unresponsive lying in bed, is moaning, in no acute distress VITAL SIGNS: Temperature 98.5 F, Pulse 85, Respiratory Rate 21, BP 137/72, Pulse Ox 87% HEENT: Head normocephalic, atraumatic. Eyes: Extraocular muscles are intact. Pupils are equal, round and reactive to light and accommodation. Ears: No lesions. Nose appeared normal. Throat: No exudate or erythema. NECK: Supple. No JVD, no carotid bruit. No lymphadenopathy or thyromegaly. LUNGS: Diminished breath sounds, bilateral rhonchi. Percussion note normal. Chest symmetrical. HEART: S1, S2, no S3. No murmurs. No cyanosis or clubbing. No ascites. Pulses: Dorsalis pedis and posterior tibial pulses +1 to +2 both sides. ABDOMEN: Soft. Non-tender. Bowel sounds active. No CVA tenderness. No mass felt. EXTREMITIES: No edema. Full range of motion of all extremities, equal. NEUROLOGIC: No focal deficit. Cranial nerves II through XII are grossly intact. No headache, no double vision or headache. SKIN: Abdominal incision is healing well. Pressure ulcer on buttock. LYMPHATIC: No palpable lymph nodes/no lymphedema. MUSCULOSKELETAL: Normal joints with no swelling. Muscle tone is normal. LAB REVIEW: 08/15/17 04:58 08/15/17 04:58 08/15/17 04:58: PT 42.2 H D, INR 4.32 H* 08/15/17 04:58: Sodium 147 H, Potassium 4.4, Chloride 100, Carbon Dioxide 34 H, Anion Gap 17.4, BUN 46 H, Creatinine 1.72 H, Estimated GFR (MDRD) 39.00, BUN/ Creatinine Ratio 26.74, Glucose 188 H, Calcium 8.5, Total Bilirubin 0.55, AST 31 , ALT 23, Alkaline Phosphatase 60, Total Protein 5.0 L, Albumin 1.5 L, Globulin 3.5, Albumin/Globulin Ratio 0.43 08/15/17 04:58: WBC 23.82 H, RBC 3.66 L, Hgb 10.2 L, Hct 31.6 L, MCV 86.3, MCH 27.9, MCHC 32.3, RDW Coeff of Katalina 18.4 H, Plt Count 168, Immature Gran % (Auto) 0.8, Neut % (Auto) 95.9, Lymph % (Auto) 2.4 L, [place] % (Auto) 0.8, Eos % (Auto) 0.0, Baso % (Auto) 0.1, Immature Gran # (Auto) 0.2, Neut # 22.8 H, Lymph # 0.6, [place] # 0.2 L, Eos # 0.0, Baso # 0.0 ASSESSMENT: 1. ARDS secondary to pulmonary edema, COPD and bronchitis. 2. Hypokalemia, resolved 3. Abdominal incision healing, no dehiscence. 4. Pressure ulcer on buttock. 5. CHF under control. 6. Intermittent small bowel obstruction. 7. CAD. 8. Severe peripheral arterial disease. 9. Chronic mesenteric ischemia. 10. Anemia PLAN: 1. Hold Coumadin 2. Lasix 40 mg IV q.6hr p.r.n. any respiratory distress if needed in addition to the 40. 3. Consult [facility] 4. Youssef Catheter to be inserted Plan and coordination of the patient's care discussed in the presence of Rivet Sticker and nurse. EDUCATION: Hospice discussed as above. is in agreement. CONDITION: CRITICAL; PROGNOSIS: POOR. SCRIBED BY: KAMINI BUTTERFIELD Die Maker Bench Stamping scribed while in presence of service performed by Dr. KELSI MURILLO/ERUM ELLIS APRN on 08/15/17 ([id number])
[2017-08-15 14:51] VITALS: BP 152/52; TEMP 98.8
--- NOTE | 2017-08-15 15:21 | PN ---
DATE OF SERVICE: 08/11/17 SUBJECTIVE: 76 year old white male hospitalized with bronchitis, hypoxemia. The patient has intermittent intestinal obstruction also has chronic mesenteric ischemia with chronic abdominal pain. Lately the patient has gone through acute CHF bought and has developed ARDS type of picture. The patient is doing better with IV Lasix and Ventimask. He is sitting up and trying to eat his breakfast. is in the room. PHYSICAL EXAMINATION: HEENT: Head normocephalic, atraumatic. Eyes: Extraocular muscles are intact. Pupils are equal, round and reactive to light and accommodation. Ears: No lesions. Nose appeared normal. Throat: No exudate or erythema. NECK: Supple. No JVD, no carotid bruit. No lymphadenopathy or thyromegaly. LUNGS: Decreased breath sounds with harsh breath sounds. Percussion note normal. Chest symmetrical. HEART: S1, S2, no S3. No murmurs. No cyanosis or clubbing. No ascites. Pulses: Dorsalis pedis and posterior tibial pulses +1 to +2 both sides. ABDOMEN: Soft. Nontender. Bowel sounds active. No CVA tenderness. No mass felt. EXTREMITIES: No edema. Full range of motion of all extremities, equal. NEUROLOGIC: No focal deficit. Cranial nerves II through XII are grossly intact. No headache, no double vision or headache. SKIN: Not dry. Intact. Turgor - normal. LYMPHATIC: No palpable lymph nodes/no lymphedema. MUSCULOSKELETAL: Normal joints with no swelling. Muscle tone is normal. LABS: As usual has leukocytosis. Potassium is 2.9 will give Potassium supplements. PLAN: 1. The patient has been seen by Dr. Yi and going to have a debridement today 2. The patient has very poor nutritional status from all the intestinal problems and also has mesenteric ischemia contributing towards that. He has a lot of endstage problems like severe peripheral arterial disease, mesenteric ischemia, coronary artery disease, low ejection fraction, CHF. 3. The patient's prognosis is poor. The son asked about it and I explained to him in detail about it. knows about it too. The patient was seen and examined with Nurse Practitioner. TIME SPENT: More than 30 minutes. Plan and coordination of the patient's care discussed in the presence of nurse. GRISEL
[2017-08-15] MEDS ORDERED: DUONEB NEB PRN (16:21)
--- NOTE | 2017-08-16 13:06 | PN ---
DATE OF SERVICE: 08/14/17 SUBJECTIVE: 76 year old male has ARDS now and he has been having respiratory distress off and on with bouts of acute CHF. The patient have severe endstage peripheral arterial disease with mesenteric ischemia. PHYSICAL EXAMINATION: HEENT: Head normocephalic, atraumatic. Eyes: Extraocular muscles are intact. Pupils are equal, round and reactive to light and accommodation. Ears: No lesions. Nose appeared normal. Throat: No exudate or erythema. NECK: Supple. JVP 2cm , no carotid bruit. No lymphadenopathy or thyromegaly. LUNGS: Decreased breath sounds but mild wheeze. Percussion note normal. Chest symmetrical. HEART: S1, S2, S3 present. No murmurs. No cyanosis or clubbing. No ascites. Pulses: Dorsalis pedis and posterior tibial pulses +1 to +2 both sides. ABDOMEN: Soft. Nontender. Bowel sounds active. No CVA tenderness. No mass felt. EXTREMITIES: No edema. Full range of motion of all extremities, equal. NEUROLOGIC: No focal deficit. Cranial nerves II through XII are grossly intact. No headache, no double vision or headache. The patient is more or less drowsy. Response to verbal stimulus. SKIN: Not dry. Intact. Turgor - normal. LYMPHATIC: No palpable lymph nodes/no lymphedema. MUSCULOSKELETAL: Normal joints with no swelling. Muscle tone is normal. PLAN: 1. The patient is DNR now 2. has been made aware of his condition which is worsening. Will give supportive measures. 3. Will increase the Dilaudid dose. The patient was seen and examined with Nurse Practitioner and Outsole Compressor. TIME SPENT: More than 30 minutes. Plan and coordination of the patient's care discussed in the presence of nurse. GRISEL
--- NOTE | 2017-08-16 13:14 | PN ---
DATE OF SERVICE: 08/13/17 SUBJECTIVE: 76 year old white male hospitalized with acute bronchitis, hypoxemia, hypokalemia. The patient continued to have shortness of breath with mild cough. The patient has bouts of acute CHF and now has ARDS. The patient's requires IV Lasix intermittently. The patient has continued to be on steroids. The other problem the patient has is Mesenteric ischemia. REVIEW OF SYSTEMS: CONSTITUTIONAL: No night sweats. No fatigue, malaise, lethargy. No fever or chills. HEENT: Eyes: No visual changes. No eye pain. No eye discharge. ENT: No runny nose. No epistaxis. No sinus pain. No sore throat. No odynophagia. No congestion. RESPIRATORY: Mild cough, no congestion. No hemoptysis. Shortness of breath. CARDIOVASCULAR: No angina symptoms. No CHF symptoms. No atypical chest pain for CAD. No palpitations. No orthopnea. GASTROINTESTINAL: No abdominal pain. No nausea or vomiting. No diarrhea or constipation. No hematemesis. No hematochezia. Appetite is getting a little better today GENITOURINARY: No urgency. No frequency. No dysuria. No hematuria. No obstructive symptoms. No discharge. No pain. No significant abnormal bleeding. MUSCULOSKELETAL: No musculoskeletal pain; no joint swelling. NEUROLOGICAL: No headache. No neck pain. No syncope. No seizures. No dizziness. PSYCHIATRIC: Not anxious. No depression. No suicidal thoughts. No homicidal thoughts. SKIN: No rash. No lesions. No wounds. ENDOCRINE: No unexplained weight loss. No weight gain. HEMATOLOGIC/LYMPHATIC: No anemia. No purpura. No petechiae. No prolonged or excessive bleeding. No palpable lymph nodes. PHYSICAL EXAMINATION: GENERAL: The patient is oriented to time, place and person. VITAL SIGNS: Temperature 97.8, pulse 75, respiratory rate 16, blood pressure 142/60 and pulse ox 88% with 3 liters of oxygen. HEENT: Head normocephalic, atraumatic. Eyes: Extraocular muscles are intact. Pupils are equal, round and reactive to light and accommodation. Ears: No lesions. Nose appeared normal. Throat: No exudate or erythema. Looks somewhat pale. NECK: Supple. No JVD, no carotid bruit. No lymphadenopathy or thyromegaly. LUNGS: Decreased breath sounds with mild wheeze. Percussion note normal. Chest symmetrical. HEART: S1, S2, no S3. No murmurs. No cyanosis or clubbing. No ascites. Pulses: Dorsalis pedis and posterior tibial pulses +1 to +2 both sides. ABDOMEN: Soft. Nontender. Bowel sounds active. No CVA tenderness. No mass felt. EXTREMITIES: No edema. Full range of motion of all extremities, equal. NEUROLOGIC: No focal deficit. Cranial nerves II through XII are grossly intact. No headache, no double vision or headache. SKIN: Not dry. Intact. Turgor - normal. LYMPHATIC: No palpable lymph nodes/no lymphedema. MUSCULOSKELETAL: Normal joints with no swelling. Muscle tone is normal. LABS: Hgb 10.1, hct 30, WBC 20,000 with normal differential, creatinine 1.2, BUN 32, potassium 3.6. ASSESSMENT: 1. Acute respiratory distress type of clinical picture on x-ray findings 2. CHF 3. Chronic bronchitis with COPD 4. Severe peripheral arterial disease 5. Intermittent abdominal pain with mesenteric edema with status post mesenteric stent placement 6. History of bowel obstruction 7. Chronic lung disease 8. Decubitus ulcer 9. Chronic pain being treated with Dilaudid. The patient's pain is from peripheral arterial disease and mesenteric ischemia. 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 The patient is on Coumadin 2. INR is 2.49 3. HGB and HCT are stable 4. The patient also had decubitus ulcer which was debrided by Dr. Yi 5. Decubitus ulcer care is being taken care of by him. TIME SPENT: More than 30 minutes. Plan and coordination of the patient's care discussed in the presence of nurse. GRISEL
--- NOTE | 2017-08-16 13:25 | PN ---
DATE OF SERVICE: 08/12/17 SUBJECTIVE: 76 year old white male hospitalized with bronchitis, hypoxemia, hypokalemia, abdominal pain. The patient's abdominal pain has continued which is mostly mesenteric ischemia. The patient may have intermittent bowel obstruction but his bowel movements are fairly regular at present time. The patient gets into acute shortness of breath intermittently with bouts of CHF. He also has ARDS type of picture. This morning he is feeling better. is in the room and they are both talking. He is hungry. REVIEW OF SYSTEMS: CONSTITUTIONAL: No night sweats. No fatigue, malaise, lethargy. No fever or chills. HEENT: Eyes: No visual changes. No eye pain. No eye discharge. ENT: No runny nose. No epistaxis. No sinus pain. No sore throat. No odynophagia. No congestion. RESPIRATORY: No cough, no congestion. No hemoptysis. Shortness of breath. CARDIOVASCULAR: No angina symptoms. No CHF symptoms. No atypical chest pain for CAD. No palpitations. No orthopnea. GASTROINTESTINAL: Abdominal pain. No nausea or vomiting. No diarrhea or constipation. No hematemesis. No hematochezia. GENITOURINARY: No urgency. No frequency. No dysuria. No hematuria. No obstructive symptoms. No discharge. No pain. No significant abnormal bleeding. MUSCULOSKELETAL: No musculoskeletal pain; no joint swelling. NEUROLOGICAL: No headache. No neck pain. No syncope. No seizures. No dizziness. PSYCHIATRIC: Not anxious. No depression. No suicidal thoughts. No homicidal thoughts. SKIN: No rash. No lesions. No wounds. ENDOCRINE: No unexplained weight loss. No weight gain. HEMATOLOGIC/LYMPHATIC: No anemia. No purpura. No petechiae. No prolonged or excessive bleeding. No palpable lymph nodes. PHYSICAL EXAMINATION: GENERAL: The patient is oriented to time, place and person. VITAL SIGNS: Temperature 97.1, pulse 69, respiratory rate 16, blood pressure 132/67 and pulse ox 82% on room air but with 3-4 liters oxygen and 50% [place] it is close to 90%. HEENT: Head normocephalic, atraumatic. Eyes: Extraocular muscles are intact. Pupils are equal, round and reactive to light and accommodation. Ears: No lesions. Nose appeared normal. Throat: No exudate or erythema. NECK: Supple. No JVD, no carotid bruit. No lymphadenopathy or thyromegaly. LUNGS: Decreased breath sounds but clear to auscultation. Percussion note normal. Chest symmetrical. HEART: S1, S2, no S3. No murmurs. No cyanosis or clubbing. No ascites. Pulses: Dorsalis pedis and posterior tibial pulses +1 to +2 both sides. ABDOMEN: Soft. Nontender. Bowel sounds active. No CVA tenderness. No mass felt. EXTREMITIES: No edema. Full range of motion of all extremities, equal. NEUROLOGIC: No focal deficit. Cranial nerves II through XII are grossly intact. No headache, no double vision or headache. SKIN: Not dry. Intact. Turgor - normal. LYMPHATIC: No palpable lymph nodes/no lymphedema. MUSCULOSKELETAL: Normal joints with no swelling. Muscle tone is normal. ASSESSMENT: 1. Respiratory failure, combination of ARDS, chronic lung disease and congestive heart failure requiring intermittent dose of IV Lasix 2. Coronary artery disease with LV Dysfunction 3. Generalized Severe peripheral arterial disease with mesenteric ischemia 4. Intestinal obstruction, intermittent status post surgery 5. Anemia PLAN: 1. Increase the Dilaudid to 2mg every 2 hourly instead of 3 2. Continue IV Lasix PRN and also IV Lasix 40mg QAM 3. Encourage the patient to eat 4. The patient's other problem is decubitus ulcer for which Dr. Yi had already debrided. The prognosis for healing the decubitus ulcer is extremely poor considering the patient's nutritional status and also he is practically bedridden and has severe peripheral disease PROGNOSIS: Poor The family understands it especially and the son. TIME SPENT: More than 30 minutes. Plan and coordination of the patient's care discussed in the presence of nurse. GRISEL
--- NOTE | 2017-08-18 10:35 | PN ---
DATE OF SERVICE: 08/15/17 SUBJECTIVE: 76 year old white male seen with the Nurse Practitioner and Performance Tester. The patient continues to be in respiratory distress off and on but mostly it is staying that way. The patient is required non rebreather 100%. The patient has ARDS coming from chronic pulmonary edema and bronchitis both with underlined chronic lung disease. His other problems are severe peripheral arterial disease , mesenteric ischemia, coronary artery disease with stent, malnutrition, diabetes mellitus, Chronic kidney disease, anemia. The patient is being treated also for decubitus ulcer. The patient is more or less confused and drowsy. PHYSICAL EXAMINATION: GENERAL: The patient is , lying/sitting in bed in no distress. VITAL SIGNS: Temperature 97.4, pulse 90, blood pressure 140/70. HEENT: Head normocephalic, atraumatic. Eyes: Extraocular muscles are intact. Pupils are equal, round and reactive to light and accommodation. Ears: No lesions. Nose appeared normal. Throat: No exudate or erythema. Looks pale. NECK: Supple. No JVD, no carotid bruit. No lymphadenopathy or thyromegaly. LUNGS: Decreased breath sounds with wheeze bilaterally. Percussion note normal. Chest symmetrical. HEART: S1, S2, no S3. No murmurs. No cyanosis or clubbing. No ascites. Pulses: Dorsalis pedis and posterior tibial pulses +1 to +2 both sides. ABDOMEN: Soft. Mildly distended. Nontender. Bowel sounds active. No CVA tenderness. No mass felt. EXTREMITIES: No edema. Full range of motion of all extremities, equal. NEUROLOGIC: No focal deficit. Cranial nerves II through XII are grossly intact. No headache, no double vision or headache. SKIN: Not dry. Intact. Turgor - normal. LYMPHATIC: No palpable lymph nodes/no lymphedema. MUSCULOSKELETAL: Normal joints with no swelling. Muscle tone is normal. ASSESSMENT: 1. Acute respiratory distress syndrome combination of CHF, chronic lung disease and bronchitis. 2. Severe peripheral arterial disease 3. Dementia 4. Coronary artery disease 5. Mesenteric ischemia 6. History of intestinal obstruction 7. Diabetes Mellitus PLAN: 1. Discussed with the and the family members and they are ready for the patient to be on the Hospice. The patient is being given Dilaudid for many days in increasing dose and frequency for his abdominal pain which is coming mesenteric ischemia which is chronic. Has history of mesenteric stent also has severe peripheral arterial disease to go with it now has developed ARDS after he had a bout of acute pulmonary edema. The patient has been anemic and now going into chronic kidney disease with aggressive diuretic therapy. PROGNOSIS: Extremely poor. TIME SPENT: More than 30 minutes. Plan and coordination of the patient's care discussed in the presence of nurse. GRISEL
== END 2017-08-15 14:58 | disposition hospice, inpatient (51) | DRG 202 ==
LOC: ED 19:33 → SCU 21:34
PROVIDERS: ADMIT Internal Medicine; ATTEND Internal Medicine
PROC: 30233N1 Transfusion of Nonautologous Red Blood Cells into Peripheral Vein, Percutaneous Approach (ICD-10-PCS; principal; 2017-08-04)
PROC: 30233N1 Transfusion of Nonautologous Red Blood Cells into Peripheral Vein, Percutaneous Approach (ICD-10-PCS; 2017-08-04)
DX: J20.9 Acute bronchitis, unspecified (principal); J18.9 Pneumonia, unspecified organism; R40.20 Unspecified coma; K55.1 Chronic vascular disorders of intestine; J44.0 Chronic obstructive pulmonary disease with (acute) lower respiratory infection; J81.1 Chronic pulmonary edema; J80 Acute respiratory distress syndrome; K56.60 Unspecified intestinal obstruction; R09.02 Hypoxemia; R06.02 Shortness of breath; I50.9 Heart failure, unspecified; D64.9 Anemia, unspecified; S31.000A Unspecified open wound of lower back and pelvis without penetration into retroperitoneum, initial encounter; E11.9 Type 2 diabetes mellitus without complications; I25.10 Atherosclerotic heart disease of native coronary artery without angina pectoris; I73.9 Peripheral vascular disease, unspecified; R10.9 Unspecified abdominal pain; E78.5 Hyperlipidemia, unspecified; L89.322 Pressure ulcer of left buttock, stage 2; E87.6 Hypokalemia; R41.0 Disorientation, unspecified; R53.1 Weakness; B96.1 Klebsiella pneumoniae [K. pneumoniae] as the cause of diseases classified elsewhere; B96.89 Other specified bacterial agents as the cause of diseases classified elsewhere; R62.7 Adult failure to thrive; Z95.828 Presence of other vascular implants and grafts; Z87.19 Personal history of other diseases of the digestive system; Z95.5 Presence of coronary angioplasty implant and graft; Z98.890 Other specified postprocedural states; Z16.11 Resistance to penicillins; Z79.899 Other long term (current) drug therapy; Z79.4 Long term (current) use of insulin
CPT/HCPCS: 36415; 36430; 80053; 80202; 81001; 82272; 82550; 82803; 82962; 83605; 83735; 83880; 84145; 84484; 85014; 85018; 85025; 85610; 86850; 86900; 86922; 87040; 87070; 87081; 87186; 93005; 93010; 94640; 96365; 96375; 97802; 99221; 99223; 99225; 99232; 99233; 99239; 99284

== ENCOUNTER 2017-08-15 15:29 | Inpatient (IN) ==
[2017-08-15] MEDS ORDERED: ARTIFICIAL TEARS OPTH SOL OP PRN (15:37)
[2017-08-15] MEDS ORDERED: ISOPTO ATROPINE SL PRN (15:41)
[2017-08-15] MEDS ORDERED: ATIVAN SL PRN (15:56)
[2017-08-15] MEDS ORDERED: IMODIUM PO PRN (16:00)
[2017-08-15] MEDS ORDERED: MILK OF MAGNESIA PO PRN (16:01)
[2017-08-15] MEDS ORDERED: TYLENOL RC PRN (16:06)
[2017-08-15] MEDS ORDERED: LEVSIN SL PRN (16:09)
[2017-08-15] MEDS ORDERED: DULCOLAX RC PRN (16:11)
[2017-08-15] MEDS ORDERED: ZOFRAN 4 MG/2 ML IVP PRN (16:18)
[2017-08-15] MEDS ORDERED: DUONEB NEB PRN (16:23)
[2017-08-15] MEDS: DILAUDID 2 MG/ML SYRINGE IVP SCH ×4 (16:48→23:47)
[2017-08-15] MEDS: ATIVAN SL SCH ×3 (16:52→23:16)
[2017-08-15 19:43] VITALS: BMI 20.1
[2017-08-16] MEDS: DILAUDID 2 MG/ML SYRINGE IVP SCH ×12 (01:40→23:51)
[2017-08-16] MEDS: LASIX IVP SCH (05:52)
[2017-08-16] MEDS: ATIVAN SL SCH ×4 (05:52→17:28)
[2017-08-16] MEDS: LASIX IVP PRN (10:28)
--- NOTE | 2017-08-16 12:47 | PCM.PROG ---
Attending Provider: ATTENDING PROVIDER: Dr. KELSI MURILLO DATE OF SERVICE: 08/16/17 SUBJECTIVE: This 76 year old WHITE/ M was hospitalized 08/15/17. The patient is hospitalized now on hospice. Diagnosis is respiratory failure from ARDS which is a combination of CHF, bronchitis and COPD. Other end stage problems are peripheral arterial disease, mesenteric ischemia, CAD, malnutrition and decubitus ulcer. The patient is sleepy, drowsy, unresponsive status but not in distress, breathing comfortably. REVIEW OF SYSTEMS: CONSTITUTIONAL: No night sweats. No fatigue, malaise, lethargy. No fever or chills. HEENT: Eyes: No visual changes. No eye pain. No eye discharge. ENT: No runny nose. No epistaxis. No sinus pain. No odynophagia. No congestion. RESPIRATORY: No cough, no congestion. No hemoptysis. No shortness of breath. CARDIOVASCULAR: No angina symptoms. No CHF symptoms. No atypical chest pain for CAD. No palpitations. No orthopnea.. GASTROINTESTINAL: No abdominal pain. No nausea or vomiting. No diarrhea or constipation. No hematemesis. No hematochezia. GENITOURINARY: No urgency. No frequency. No dysuria. No hematuria. No obstructive symptoms. No discharge. No pain. No significant abnormal bleeding. MUSCULOSKELETAL: No musculoskeletal pain; no joint swelling. NEUROLOGICAL: Sleepy, drowsy. Unresponsive status. No headache. No neck pain. No syncope. No seizures. No dizziness. PSYCHIATRIC: Not anxious. No depression. No suicidal thoughts. No homicidal thoughts. SKIN: No rash. ENDOCRINE: No unexplained weight loss. No weight gain. HEMATOLOGIC/LYMPHATIC: No anemia. No purpura. No petechiae. No prolonged or excessive bleeding. No palpable lymph nodes. PHYSICAL EXAMINATION: GENERAL: The patient is in an unresponsive status, in no distress, breathing comfortably. VITAL SIGNS: Temperature 98.8 F, Pulse 74, Respiratory Rate 22, BP 132/68, Pulse Ox 96% HEENT: Head normocephalic, atraumatic. Eyes: Extraocular muscles are intact. Pupils are equal, round and reactive to light and accommodation. Ears: No lesions. Nose appeared normal. Throat: No exudate or erythema. NECK: Supple. No JVD, no carotid bruit. No lymphadenopathy or thyromegaly. LUNGS: Bilateral wheeze with decreased breath sounds mostly expiratory wheeze. Percussion note normal. Chest symmetrical. HEART: irregular heart rate. S1, S2, no S3. No murmurs. No cyanosis or clubbing. No ascites. Pulses: Dorsalis pedis and posterior tibial pulses +1 to +2 both sides. ABDOMEN: Soft, flat. Non-tender. Bowel sounds active. No CVA tenderness. No mass felt. EXTREMITIES: No edema. Full range of motion of all extremities, equal. NEUROLOGIC: No focal deficit. Cranial nerves II through XII are grossly intact. No headache, no double vision or headache. SKIN: Not dry. Intact. Turgor-normal. LYMPHATIC: No palpable lymph nodes/no lymphedema. MUSCULOSKELETAL: Normal joints with no swelling. Muscle tone is normal. ASSESSMENT: 1. ARDS, patient is on nonrebreather 2. Mesenteric ischemia with abdominal pain, which is controlled with Dilaudid and other pain medications. PLAN: The patient was accepted by hospice yesterday. Plan and coordination of the patient's care discussed in the presence of Condominium Manager and nurse. CONDITION: STABLE BUT CRITICAL; PROGNOSIS IS POOR. SCRIBED BY: KAMINI BUTTERFIELD Process Engineering Intern scribed while in presence of service performed by Dr. KELSI MURILLO on 08/16/17 ([id number])
[2017-08-17] MEDS: ATIVAN SL SCH ×4 (00:37→18:44)
[2017-08-17] MEDS: LASIX IVP PRN (00:44)
[2017-08-17] MEDS: DILAUDID 2 MG/ML SYRINGE IVP SCH ×7 (01:53→13:46)
[2017-08-17] MEDS: LASIX IVP SCH (05:41)
[2017-08-17 05:48] VITALS: TEMP 97.4
--- NOTE | 2017-08-17 09:48 | PCM.PROG ---
Attending Provider: ATTENDING PROVIDER: Dr. KELSI MURILLO DATE OF SERVICE: 08/17/17 SUBJECTIVE: This 76 year old WHITE/ M was hospitalized 08/15/17. The patient is resting comfortably and is responsive to touch and verbal stimuli. REVIEW OF SYSTEMS: CONSTITUTIONAL: Lethargy/drowsy. No night sweats. No fever or chills. HEENT: Eyes: No visual changes. No eye pain. No eye discharge. ENT: No runny nose. No epistaxis. No sinus pain. No odynophagia. No congestion. RESPIRATORY: Cough and congestion. No hemoptysis. Shortness of breath. CARDIOVASCULAR: No angina symptoms. No CHF symptoms. No atypical chest pain for CAD. No palpitations. No orthopnea.. GASTROINTESTINAL: Poor appetite - not eating. No abdominal pain. No nausea or vomiting. No diarrhea or constipation. No hematemesis. No hematochezia. GENITOURINARY: No urgency. No frequency. No dysuria. No hematuria. No obstructive symptoms. No discharge. No pain. No significant abnormal bleeding. MUSCULOSKELETAL: No musculoskeletal pain; no joint swelling. NEUROLOGICAL: Awake, alert, oriented to time, place and person. No headache. No neck pain. No syncope. No seizures. No dizziness. PSYCHIATRIC: Easily agitated. No depression. No suicidal thoughts. No homicidal thoughts. SKIN: No rash. Abdominal incision; pressure ulcer on buttock, unchanged. ENDOCRINE: No unexplained weight loss. No weight gain. HEMATOLOGIC/LYMPHATIC: No anemia. No purpura. No petechiae. No prolonged or excessive bleeding. No palpable lymph nodes. PHYSICAL EXAMINATION: GENERAL: The patient responds to verbal stimuli as well as touch, lying in bed resting comfortably. VITAL SIGNS: Temperature 97.4 F, Pulse 88, Respiratory Rate 16, BP 103/56, Pulse Ox 90% HEENT: Head normocephalic, atraumatic. Eyes: Extraocular muscles are intact. Pupils are equal, round and reactive to light and accommodation. Ears: No lesions. Nose appeared normal. Throat: No exudate or erythema. NECK: Supple. No JVD, no carotid bruit. No lymphadenopathy or thyromegaly. LUNGS: Diminished breath sounds with bilateral rhonchi. Percussion note normal. Chest symmetrical. HEART: S1, S2, no S3. No murmurs. No cyanosis or clubbing. No ascites. Pulses: Dorsalis pedis and posterior tibial pulses +1 to +2 both sides. ABDOMEN: Soft. Non-tender. Bowel sounds active. No CVA tenderness. No mass felt. EXTREMITIES: No edema. Full range of motion of all extremities, equal. NEUROLOGIC: No focal deficit. Cranial nerves II through XII are grossly intact. No headache, no double vision or headache. SKIN: Dry. Pressure ulcer on buttock; abdominal incision, unchanged. LYMPHATIC: No palpable lymph nodes/no lymphedema. MUSCULOSKELETAL: Normal joints with no swelling. Muscle tone is normal. ASSESSMENT: 1. ARDS, patient is on nonrebreather 2. Mesenteric ischemia with abdominal pain, which is controlled with Dilaudid and other pain medications. PLAN: 1. Hospice care continued Plan and coordination of the patient's care discussed in the presence of Train Operator and nurse. CONDITION: Critical SCRIBED BY: KAMINI BUTTERFIELD Traveling Construction Superintendent scribed while in presence of service performed by Dr. KELSI MURILLO/KYLAH ELLIS APRN on 08/17/17 ([id number])
[2017-08-17] MEDS ORDERED: DILAUDID 4 MG/ML SYRINGE ONE (12:17)
[2017-08-17] MEDS: DILAUDID 4 MG/ML SYRINGE IVP SCH ×5 (15:08→22:54)
[2017-08-17 19:39] VITALS: BP 118/69
[2017-08-18] MEDS: ATIVAN SL SCH ×6 (00:40→20:36)
[2017-08-18] MEDS: DILAUDID 4 MG/ML SYRINGE IVP SCH ×4 (01:02→07:29)
[2017-08-18] MEDS: LASIX IVP SCH (05:45)
[2017-08-18] MEDS ORDERED: MORPHINE 2 MG/ML SYRINGE IVP STA (08:24)
[2017-08-18] MEDS ORDERED: MORPHINE 2 MG/ML SYRINGE IVP ONE (11:46)
[2017-08-18] MEDS: ATIVAN PO SCH ×2 (11:50→13:29)
[2017-08-18] MEDS ORDERED: MORPHINE 4 MG/ML SYRINGE ONE ×4 (13:29→23:07)
[2017-08-18] MEDS: MORPHINE 4 MG/ML VIAL IVP PRN ×2 (20:35→23:10)
--- NOTE | 2017-09-14 12:50 | PN ---
DATE OF SERVICE: 08/18/17 SUBJECTIVE: 76-year-old white male with ARDS, has respiratory distress. The patient responded to his name and opened his eyes temporarily. Mostly drowsy, moaning with pain at times. The patient's pain is chronic abdominal ischemia. REVIEW OF SYSTEMS: CONSTITUTIONAL: No night sweats. No fatigue, malaise, lethargy. No fever or chills. HEENT: Eyes: No visual changes. No eye pain. No eye discharge. ENT: No runny nose. No epistaxis. No sinus pain. No sore throat. No odynophagia. No congestion. RESPIRATORY: No cough, no congestion. No hemoptysis. No shortness of breath. CARDIOVASCULAR: No angina symptoms. No CHF symptoms. No atypical chest pain for CAD. No palpitations. No orthopnea. GASTROINTESTINAL: Abdominal pain. No nausea or vomiting. No diarrhea or constipation. No hematemesis. No hematochezia. GENITOURINARY: No urgency. No frequency. No dysuria. No hematuria. No obstructive symptoms. No discharge. No pain. No significant abnormal bleeding. MUSCULOSKELETAL: No musculoskeletal pain; no joint swelling. NEUROLOGICAL: Mostly drowsy. No headache. No neck pain. No syncope. No seizures. No dizziness. PSYCHIATRIC: Not anxious. No depression. No suicidal thoughts. No homicidal thoughts. SKIN: No rash. No lesions. No wounds. ENDOCRINE: No unexplained weight loss. No weight gain. HEMATOLOGIC/LYMPHATIC: No anemia. No purpura. No petechiae. No prolonged or excessive bleeding. No palpable lymph nodes. PHYSICAL EXAMINATION: HEENT: Head normocephalic, atraumatic. Eyes: Extraocular muscles are intact. Pupils are equal, round and reactive to light and accommodation. Ears: No lesions. Nose appeared normal. Throat: No exudate or erythema. NECK: Supple. No JVD, no carotid bruit. No lymphadenopathy or thyromegaly. LUNGS: Bilateral wheeze mostly expiratory noted. The patient is on nonrebreather. Percussion note normal. Chest symmetrical. HEART: S1, S2, no S3. No murmurs. No cyanosis or clubbing. No ascites. Pulses: Dorsalis pedis and posterior tibial pulses +1 to +2 both sides. ABDOMEN: Flat. Soft. Nontender. Bowel sounds active. No CVA tenderness. No mass felt. EXTREMITIES: No edema. Full range of motion of all extremities, equal. NEUROLOGIC: No focal deficit. Cranial nerves II through XII are grossly intact. No headache, no double vision or headache. SKIN: Not dry. Intact. Turgor - normal. LYMPHATIC: No palpable lymph nodes/no lymphedema. MUSCULOSKELETAL: Normal joints with no swelling. Muscle tone is normal. ASSESSMENT: 1. ARDS WITH RESPIRATORY FAILURE 2. PERIPHERAL VASCULAR DISEASE 3. SEVERE CHRONIC LUNG DISEASE 4. PNEUMONITIS 5. CHF 6. CORONARY ARTERY DISEASE WITH STENT PLAN: 1. According to the family, they want the pain medication to be increased, change to either Morphine Sulfate or Dilaudid to be increased to 4 mg every 2 hr. Also they do not want mask because he is very uncomfortable with it and he tries to pull it off so will put the patient on nasal cannula. 2. Supportive measures. The patient is being followed by Hospice. The is in the room and case discussed. PROGNOSIS: Poor. TIME SPENT: More than 30 minutes. Plan and coordination of the patient's care discussed in the presence of nurse. GRISEL
--- NOTE | 2017-10-12 09:16 | DS ---
DATE OF SERVICE: 08/19/17 FINAL DIAGNOSIS: 1. Acute respiratory failure 2. Acute respiratory distress syndrome with combination of CHF and pneumonitis 3. Chronic lung disease 4. Coronary artery disease with stent 5. Congestive heart failure 6. Severe peripheral arterial disease 7. Chronic masseteric ischemia 8. Status post small bowel obstruction 9. Diabetes Mellitus 10.Dyslipidemia HOSPITAL COURSE: Mr. Jesus Seth was originally hospitalized with hypoxemia, hypokalemia and anemia. The patient required a couple of units of packed red cells. There was no evidence of GI bleed. The patient has undergone surgery for intestinal obstruction and has been having difficulty recovering from it in a way of appetite. His other problem was more or less abdominal pain which was all throughout continuous, worsening of the abdominal pain happened with the food intake. The patient had masseteric stent with masseteric ischemia with more like abdominal angina required Dilaudid on a constant basis IV every 2-3 hours. The patient's condition seemed to have stabilized but then he went into acute CHF and developed ERDS on top of acute bronchitis with chronic lung disease with respiratory failure. The patient was put on Hospice. Aggressive treatment with the NEBS steroids, antibiotics and IV Lasix didn't help much. He on 08/19/17. Cause of acute respiratory failure from acute respiratory distress syndrome which happened with the combination of pneumonia, chronic lung disease and pulmonary edema. TIME SPENT: More than 60 minutes. MTDD
== END 2017-08-19 01:40 | disposition expired | DRG 204 ==
LOC: SCU 15:29
PROVIDERS: ADMIT Internal Medicine; ATTEND Internal Medicine
DX: J80 Acute respiratory distress syndrome (principal); J18.9 Pneumonia, unspecified organism; K55.1 Chronic vascular disorders of intestine; J81.1 Chronic pulmonary edema; I50.9 Heart failure, unspecified; J44.9 Chronic obstructive pulmonary disease, unspecified; E11.9 Type 2 diabetes mellitus without complications; I25.10 Atherosclerotic heart disease of native coronary artery without angina pectoris; I73.9 Peripheral vascular disease, unspecified; E78.5 Hyperlipidemia, unspecified; L89.309 Pressure ulcer of unspecified buttock, unspecified stage; Z87.19 Personal history of other diseases of the digestive system; Z95.5 Presence of coronary angioplasty implant and graft
CPT/HCPCS: 99223; 99232; 99239